=== PATIENT | male | born 1940 | race Caucasian/White ===

== ENCOUNTER 2017-03-10 15:17 | Inpatient (IN) | payer MEDICARE, OTHER ==
[~2017-03-10] VITALS: Ht 185.4 cm; Wt 97.5 kg
[~2017-03-10 15:17] MED LIST: ASPI81 PO; COZA50TA PO; IBUP600T26 PO; LORTA5 PO; NORV10TA PO; ROBA750T3 PO; SIMV5TAB3 OR; TOPR25TA2 PO
[2017-03-10 15:20] VITALS: BP 132/91; PULSE 64; RESP 18; TEMP 99.1; O2SAT 99
[2017-03-10 16:17] LABS: AUTOMATED NEUTROPHIL # 4.7 TH/MM3 (1.8-7.7); BASOPHIL % 0.1 % (0.0-2.0); HEMOGLOBIN 14.7 GM/DL (13.0-17.0); LYMPH % 13.8 % (9.0-44.0); LYMPHOCYTE # 0.8 TH/MM3 (1.0-4.8); MEAN CELL VOLUME 87.9 FL (80.0-100.0); MEAN CORPUSCULAR HEMOGLOBIN 29.4 PG (27.0-34.0); MEAN CORPUSCULAR HGB CONC 33.5 % (32.0-36.0); MONO % 7.2 % (0.0-8.0); MONOCYTE # 0.4 TH/MM3 (0-0.9); NEUT % 78.9 % (16.0-70.0); PLATELET COUNT 205 TH/MM3 (150-450); RED CELL DISTRIBUTION WIDTH 14.3 % (11.6-17.2)
--- NOTE | 2017-03-10 16:27 | RADRPT ---
EXAM DATE/TIME: 03/10/2017 15:32 [place] COMPARISON: No previous studies available for comparison. 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 Right lung is clear. Cardiomediastin contours are within normal limits. Multiple old left-si ded rib fractures. Remaining bony thorax is intact. CONCLUSION: 1. Multiple old left-sided rib fractures and linear parenchymal opacities in the left lower lobe with associated architectural distortion and volume loss likely reflecting scarring. Tru Miranda MD on March 10, 2017 at 16:23 Board Certified Radiologist. This report was verified electronically.
[2017-03-10 16:28] LABS: INTERNATIONAL NORMALIZED RATIO 1.1 RATIO; PROTHROMBIN TIME - PATIENT 10.7 SEC (9.8-11.6)
[2017-03-10 16:40] LABS: BICARBONATE 26.2 MEQ/L (21.0-32.0); CALCIUM 9.4 MG/DL (8.5-10.1); CREATININE 1.22 MG/DL (0.60-1.30); MAGNESIUM 2.3 MG/DL (1.5-2.5)
[2017-03-10 16:44] LABS: TROPONIN I 0.03 NG/ML (0.02-0.05)
[2017-03-10 17:59] VITALS: BP 174/89; PULSE 55; RESP 16; O2SAT 96
--- NOTE | 2017-03-10 18:30 | PD ---
HPI Chief Complaint: Chest Pain Time Seen by Provider: 18:09 Travel History International Travel<30 days: No Contact w/Intl Traveler<30days: No Traveled to known affect area: No History of Present Illness HPI The patient 76 years old and arrives to the ER complaining of chest pain retrosternal in location with a burning quality and some radiation to the left arm. The duration is been about 1-2 months. Over the past day or 2 it has become worse and at the time of ER evaluation is 1/10 in severity. The patient. There is no shortness of breath. There is an exertional component. Evidently the patient underwent stress test 2 months prior which was normal. He follows with Dr. Stewart. [facility] Past Medical History Heart Rhythm Problems: Yes High Cholesterol: Yes Gastrointestinal Disorders: Yes (hemrhoids removal) Genitourinary: Yes (prostate ca and removal) Hypertension: Yes Tetanus Vaccination: < 5 Years Past Surgical History Other Surgery: Yes (TURP, HEMORRHOIDECTOMY) Social History Alcohol Use: No Tobacco Use: No (quit 25 yrs ago) Substance Use: No Allergies-Medications (Allergen,Severity, Reaction): Coded Allergies: No Known Allergies (Verified , 10/20/12) Reported Meds & Prescriptions Reported Meds & Active Scripts Active Ibuprofen 600 Mg Tab 600 Mg PO Q8H PRN Robaxin-750 (Methocarbamol) 750 Mg Tab 750 Mg PO TID PRN [place] 5/325 (Hydrocodone-Acetaminophen) 325 Mg/5 Mg Tab 1 Tab PO Q6H PRN UNKNOWN DOSE Reported Cozaar (Losartan Potassium) 50 Mg Tab 100 Mg PO DAILY Norvasc (Amlodipine Besylate) 10 Mg Tab 7.5 Mg PO DAILY Simvastatin 5 Mg Tab 20 Mg OR Toprol Xl (Metoprolol Succinate) 25 Mg Tabcr 100 Mg PO DAILY Aspirin 81 Mg Tab 162 Mg PO DAILY Review of Systems Except as stated in HPI: all other systems reviewed are Neg General / Constitutional: No: Fever Physical Exam Narrative GENERAL: 76-year-old male well-nourished well-developed SKIN: Warm and dry. HEAD: Atraumatic. Normocephalic. EYES: Pupils equal and round. No scleral icterus. No injection or drainage. ENT: No nasal bleeding or discharge. Mucous membranes pink and moist. NECK: Trachea midline. No JVD. CARDIOVASCULAR: Regular rate and rhythm. RESPIRATORY: No accessory muscle use. Clear to auscultation. Breath sounds equal bilaterally. GASTROINTESTINAL: Abdomen soft, non-tender, nondistended. Hepatic and splenic margins not palpable. MUSCULOSKELETAL: Extremities without clubbing, cyanosis, or edema. No obvious deformities. NEUROLOGICAL: Awake and alert. No obvious cranial nerve deficits. Motor grossly within normal limits. Five out of 5 muscle strength in the arms and legs. Normal speech. PSYCHIATRIC: Appropriate mood and affect; insight and judgment normal. Data Data Last Documented VS Vital Signs Date Time Temp Pulse Resp B/P (MAP) Pulse Ox O2 Delivery O2 Flow Rate FiO2 03/10/17 17:59 55 16 174/89 (117) 96 Room Air 03/10/17 15:20 99.1 VS reviewed Orders Orders Electrocardiogram (03/10/17 15:22) Basic Metabolic Panel (Bmp) (03/10/17 15:22) Ckmb (Isoenzyme) Profile (03/10/17 15:22) Complete Blood Count With Diff (03/10/17 15:22) Magnesium (Mg) (03/10/17 15:22) Prothrombin Time / Inr (Pt) (03/10/17 15:22) Act Partial Throm Time (Ptt) (03/10/17 15:22) Troponin I (03/10/17 15:22) Chest, Pa & Lat (03/10/17 15:22) Electrocardiogram (03/10/17 ) Admit Order (Ed Use Only) (03/10/17 ) Net Web Application Developer / Telemetry [email or web address] (03/10/17 18:46) Vital Signs (Adult) Q4H (03/10/17 18:46) Diet Heart Healthy (03/10/17 Dinner) Activity Bed Rest (03/10/17 18:46) Heparin Inj (Heparin Inj) (03/11/17 01:00) Heparin Inj (Heparin Inj) (03/11/17 01:00) Heparin-D5w 25,000 U/250 Ml (Heparin-D5w (03/10/17 19:00) Cbc No Diff, Includes Plts (03/13/17 06:00) Act Partial Throm Time (Ptt) (03/11/17 01:46) Occult Blood (Hemoccult) Stool (03/10/17 18:46) Nitroglycerin 2% Oint (Nitroglycerin 2% (03/10/17 19:00) Labs Laboratory Tests Test 03/10/17 15:55 White Blood Count 6.0 TH/MM3 Red Blood Count 5.00 MIL/MM3 Hemoglobin 14.7 GM/DL Hematocrit 44.0 % Mean Corpuscular Volume 87.9 FL Mean Corpuscular Hemoglobin 29.4 PG Mean Corpuscular Hemoglobin Concent 33.5 % Red Cell Distribution Width 14.3 % Platelet Count 205 TH/MM3 Mean Platelet Volume 8.0 FL Neutrophils (%) (Auto) 78.9 % Lymphocytes (%) (Auto) 13.8 % Monocytes (%) (Auto) 7.2 % Eosinophils (%) (Auto) 0.0 % Basophils (%) (Auto) 0.1 % Neutrophils # (Auto) 4.7 TH/MM3 Lymphocytes # (Auto) 0.8 TH/MM3 Monocytes # (Auto) 0.4 TH/MM3 Eosinophils # (Auto) 0.0 TH/MM3 Basophils # (Auto) 0.0 TH/MM3 CBC Comment DIFF FINAL Differential Comment Prothrombin Time 10.7 SEC Prothromb Time International Ratio 1.1 RATIO Activated Partial Thromboplast Time 26.8 SEC Blood Urea Nitrogen 20 MG/DL Creatinine 1.22 MG/DL Random Glucose 111 MG/DL Calcium Level 9.4 MG/DL Magnesium Level 2.3 MG/DL Sodium Level 141 MEQ/L Potassium Level 4.2 MEQ/L Chloride Level 109 MEQ/L Carbon Dioxide Level 26.2 MEQ/L Anion Gap 6 MEQ/L Estimat Glomerular Filtration Rate 57 ML/MIN Total Creatine Kinase 58 U/L Troponin I 0.03 NG/ML [facility] Medical Decision Making Medical Screen Exam Complete: Yes Emergency Medical Condition: Yes Medical Record Reviewed: Yes Differential Diagnosis NSTEMI, unstable angina, coronary vasospasm, PE, PTX, aortic dissection, pericarditis, myocarditis, endocarditis, PNA, esophageal disease, aneurysm, musculoskeletal etiologies, anxiety, cocaine/sympathomimetic abuse Narrative Course CBC & BMP Diagram 03/10/17 15:55 Calcium Level 9.4, Magnesium Level 2.3 Troponin is 0.03 EKG shows a sinus rhythm at a rate of 58, nonspecific ST changes are seen in multiple leads Last Impressions Chest X-Ray 03/10/17 1522 Signed Impressions: Service Date/Time: Friday, March 10, 2017 15:32 - CONCLUSION: 1. Multiple old left-sided rib fractures and linear parenchymal opacities in the left lower lobe with associated architectural distortion and volume loss likely reflecting scarring. Tru Miranda MD d/w Dr Stewart who advises [facility] admission, likely pt will require cath nitro paste here Diagnosis Primary Impression: Chest pain Qualified Codes: R07.9 - Chest pain, unspecified Admitting Information Admitting Physician Requests: Admit Magdaleno Morris MD Mar 10, 2017 18:30
[2017-03-10] MEDS ORDERED: HEPARIN-D5W 25,000 U/250 ML 250 ML IV PRN (19:00)
[2017-03-10] MEDS ORDERED: NITROGLYCERIN 2% OINT 1 GM PACKET TOP ONE (19:00)
[2017-03-10 19:06] VITALS: BP 156/86; PULSE 58; RESP 16
[2017-03-10] MEDS ORDERED: NALOXONE HCL 0.4 MG/ML AMP IV PUSH PRN (19:15)
[2017-03-10] MEDS ORDERED: SODIUM CHLORIDE 0.9% FLUSH 10 ML FLUSH IV FLUSH PRN (19:15)
[2017-03-10] MEDS: SODIUM CHLORIDE 0.9% FLUSH 10 ML FLUSH IV FLUSH SCH (20:56)
--- NOTE | 2017-03-10 21:11 | EKG ---
Date Performed: 03/10/2017 Time Performed: 17:23:07 PTAGE: 76 years EKG: SINUS BRADYCARDIA INFERIOR MYOCARDIAL INFARCTION ABNORMAL ECG PREVIOUS TRACING : 03/10/2017 15.57 Since previous tracing, no significant change noted DOCTOR: Mejia Mazariegos Interpretating Date/Time 03/10/2017 21:10:03
--- NOTE | 2017-03-10 21:23 | EKG ---
Date Performed: 03/10/2017 Time Performed: 15:57:13 PTAGE: 76 years EKG: SINUS BRADYCARDIA INFERIOR MYOCARDIAL INFARCTION ABNORMAL ECG NO PREVIOUS TRACING DOCTOR: Mejia Mazariegos Interpretating Date/Time 03/10/2017 21:22:43
--- NOTE | 2017-03-10 21:39 | HHI.HP ---
[facility] Faraz Del Real DO Admission Diagnosis Chest Pain Diagnoses: Travel History International Travel<30 Days: No Contact w/Intl Traveler <30 Da: No Traveled to Known Affected Are: No History of Present Illness 76-year-old male with a past medical history significant for hypertension, hyperlipidemia and history of thymoma presents to the emergency department for evaluation of chest pressure/tightness. The patient reports that he was walking in the mall this morning with his and he had sudden onset chest pain that radiated down his left arm. He reports that over the past 4 weeks this has happened approximately 5-7 times most recently awakening him from sleep last night. The patient denies any associated diaphoresis or shortness of breath. 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 Stewart and he underwent a stress test 2 weeks ago which was within normal limits. Vital signs: Temperature 99.1, pulse 64, respiratory rate 18, BP 132/91, pulse ox 99% on room air Review of Systems Denies fever or chills Denies blurry vision, otorrhea, rhinorrhea Denies sore throat and cough Positive chest pain/pressure/tightness No shortness of breath or wheezing No abdominal pain Denies constipation/diarrhea/nausea/vomiting Denies muscle pain Denies focal weakness No rashes Past Family Social History Past Medical History Hypertension Hyperlipidemia History of thymoma, patient followed at [facility] every 6 months Past Surgical History Thymoma removal Prostatectomy Hemorrhoidectomy Reported Medications Reported Meds & Active Scripts Active Ibuprofen 600 Mg Tab 600 Mg PO Q8H PRN Robaxin-750 (Methocarbamol) 750 Mg Tab 750 Mg PO TID PRN [place] 5/325 (Hydrocodone-Acetaminophen) 325 Mg/5 Mg Tab 1 Tab PO Q6H PRN UNKNOWN DOSE Reported Cozaar (Losartan Potassium) 50 Mg Tab 100 Mg PO DAILY Norvasc (Amlodipine Besylate) 10 Mg Tab 7.5 Mg PO DAILY Simvastatin 5 Mg Tab 20 Mg OR Toprol Xl (Metoprolol Succinate) 25 Mg Tabcr 100 Mg PO DAILY Aspirin 81 Mg Tab 162 Mg PO DAILY Allergies: Coded Allergies: No Known Allergies (Verified Allergy, Unknown, 03/10/17) Family History Father with CAD Social History Quit smoking at age 50. Rare alcohol. Denies illicit drugs. Physical Exam Vital Signs Vital Signs Date Time Temp Pulse Resp B/P (MAP) Pulse Ox O2 Delivery O2 Flow Rate FiO2 03/10/17 19:06 58 16 156/86 (109) 03/10/17 17:59 55 16 174/89 (117) 96 Room Air 03/10/17 15:20 99.1 64 18 132/91 (105) 99 Room Air Physical Exam GENERAL: male sitting up in bed SKIN: No rashes, ecchymoses or lesions. Cool and dry. HEAD: Atraumatic. Normocephalic. No temporal or scalp tenderness. EYES: Pupils equal round and reactive. Extraocular motions intact. No scleral icterus. No injection or drainage. ENT: Nose without bleeding, purulent drainage or septal hematoma. Throat without erythema, tonsillar hypertrophy or exudate. Uvula midline. Airway patent. NECK: Trachea midline. No JVD or lymphadenopathy. Supple, nontender, no meningeal signs. CARDIOVASCULAR: Regular rate and rhythm without murmurs, gallops, or rubs. RESPIRATORY: Clear to auscultation. Breath sounds equal bilaterally. No wheezes , rales, or rhonchi. GASTROINTESTINAL: Abdomen soft, non-tender, nondistended. No hepato-splenomegaly , or palpable masses. No guarding. MUSCULOSKELETAL: Extremities without clubbing, cyanosis, or edema. No joint tenderness, effusion, or edema noted. No calf tenderness. NEUROLOGICAL: Awake and alert. Cranial nerves II through XII intact. Motor and sensory grossly within normal limits. Normal speech. Laboratory Laboratory Tests Test 03/10/17 15:55 White Blood Count 6.0 Red Blood Count 5.00 Hemoglobin 14.7 Hematocrit 44.0 Mean Corpuscular Volume 87.9 Mean Corpuscular Hemoglobin 29.4 Mean Corpuscular Hemoglobin Concent 33.5 Red Cell Distribution Width 14.3 Platelet Count 205 Mean Platelet Volume 8.0 Neutrophils (%) (Auto) 78.9 Lymphocytes (%) (Auto) 13.8 Monocytes (%) (Auto) 7.2 Eosinophils (%) (Auto) 0.0 Basophils (%) (Auto) 0.1 Neutrophils # (Auto) 4.7 Lymphocytes # (Auto) 0.8 Monocytes # (Auto) 0.4 Eosinophils # (Auto) 0.0 Basophils # (Auto) 0.0 CBC Comment DIFF FINAL Differential Comment Prothrombin Time 10.7 Prothromb Time International Ratio 1.1 Activated Partial Thromboplast Time 26.8 Blood Urea Nitrogen 20 Creatinine 1.22 Random Glucose 111 Calcium Level 9.4 Magnesium Level 2.3 Sodium Level 141 Potassium Level 4.2 Chloride Level 109 Carbon Dioxide Level 26.2 Anion Gap 6 Estimat Glomerular Filtration Rate 57 Total Creatine Kinase 58 Troponin I 0.03 Result Diagram: 03/10/17155403/10/171554 Caprini VTE Risk Assessment Caprini VTE Risk Assessment: Mod/High Risk (score >= 2) Caprini Risk Assessment Model Point Value = 1 Point Value = 2 Point Value = 3 Point Value = 5 Age 41-60 Minor surgery BMI > 25 kg/m2 Swollen legs Varicose veins or History of unexplained or recurrent spontaneous Oral contraceptives or hormone replacement Sepsis (< 1 month) Serious lung disease, including pneumonia (< 1 month) Abnormal pulmonary function Acute myocardial infarction Congestive heart failure (< 1 month) History of inflammatory bowel disease Medical patient at bed rest Age 61-74 Arthroscopic surgery Major open surgery (> 45 min) Laparoscopic surgery (> 45 min) Malignancy Confined to bed (> 72 hours) Immobilizing plaster cast Central venous access Age >= 75 History of VTE Family history of VTE Factor V Leiden Prothrombin [id number] Lupus anticoagulant Anticardiolipin antibodies Elevated serum homocysteine Heparin-induced thrombocytopenia Other congenital or acquired thrombophilia Stroke (< 1 month) Elective arthroplasty Hip, pelvis, or leg fracture Acute spinal cord injury (< 1 month) Prophylaxis Regimen Total Risk Factor Score Risk Level Prophylaxis Regimen 0-1 Low Early ambulation 2 Moderate Order ONE of the following: *Sequential Compression Device (SCD) *Heparin 5000 units SQ BID 3-4 Higher Order ONE of the following medications: *Heparin 5000 units SQ TID *Enoxaparin/Lovenox 40 mg SQ daily (WT < 150 kg, CrCl > 30 mL/min) *Enoxaparin/Lovenox 30 mg SQ daily (WT < 150 kg, CrCl > 10-29 mL/min) *Enoxaparin/Lovenox 30 mg SQ BID (WT < 150 kg, CrCl > 30 mL/min) AND/OR *Sequential Compression Device (SCD) 5 or more Highest Order ONE of the following medications: *Heparin 5000 units SQ TID (Preferred with Epidurals) *Enoxaparin/Lovenox 40 mg SQ daily (WT < 150 kg, CrCl > 30 mL/min) *Enoxaparin/Lovenox 30 mg SQ daily (WT < 150 kg, CrCl > 10-29 mL/min) *Enoxaparin/Lovenox 30 mg SQ BID (WT < 150 kg, CrCl > 30 mL/min) AND *Sequential Compression Device (SCD) Assessment and Plan Assessment and Plan Assessment/plan: 1. Chest pain Symptoms consistent with unstable angina EKG significant for sinus bradycardia without ST segment elevations or depressions, images reviewed by me Initial troponin 0.03 Patient started on heparin drip in the emergency department Nitro paste Cardiology, Dr. Stewart, consulted and appreciate recommendations ACS rule out pending; serial troponin/EKGs Telemetry Nothing by mouth for possible cardiac catheterization tomorrow 2. Hypertension Continue home blood pressure medications once medication reconciliation completed 3. Hyperlipidemia Continue home statin FEN NPO Electrolytes: monitor and replete prn NS at 100 cc/hr Heparin ggt Physician Certification 2 Midnight Certification Type: Admission for Inpatient Services Order for Inpatient Services The services are ordered in accordance with Medicare regulations or non- Medicare payer requirements, as applicable. In the case of services not specified as inpatient-only, they are appropriately provided as inpatient services in accordance with the 2-midnight benchmark. Estimated LOS (days): 2 2 days is the estimated time the patient will need to remain in the hospital, assuming treatment plan goals are met and no additional complications. Post-Hospital Plan: Not yet determined Isabela Moran MD Mar 10, 2017 21:38
[2017-03-10] MEDS: SODIUM CHLOR 0.9% 1000 ML INJ 1,000 ML IV SCH (21:56)
[2017-03-10 23:00] VITALS: BP 143/90; PULSE 66; RESP 16; O2SAT 98
[2017-03-11] VITALS (20 sets, daily range): BP systolic 107–160; BP diastolic 70–94; PULSE 56–78; RESP 16–20; TEMP 97.8–98.3; O2SAT 96–97
[2017-03-11 00:26] LABS: TROPONIN I 0.05 NG/ML (0.02-0.05)
[2017-03-11] MEDS ORDERED: HEPARIN SODIUM - IV 10,000 UNITS/10 ML VIAL IV PUSH PRN ×2 (01:00)
[2017-03-11] MEDS ORDERED: METO50TA PO (05:00)
[2017-03-11] MEDS ORDERED: LOSA100T PO (05:00)
[2017-03-11] MEDS ORDERED: ASPI81CH6 CHEW (05:00)
[2017-03-11] MEDS ORDERED: LIPI40TA PO (05:00)
[2017-03-11] MEDS ORDERED: AMLO5TAB2 PO (05:00)
[2017-03-11 05:31] LABS: BICARBONATE 25.2 MEQ/L (21.0-32.0); CALCIUM 8.4 MG/DL (8.5-10.1); CREATININE 1.09 MG/DL (0.60-1.30); TROPONIN I 0.05 NG/ML (0.02-0.05)
[2017-03-11] MEDS: SODIUM CHLOR 0.9% 1000 ML INJ 1,000 ML IV SCH (08:57)
[2017-03-11] MEDS: SODIUM CHLORIDE 0.9% FLUSH 10 ML FLUSH IV FLUSH SCH ×2 (09:00→20:07)
[2017-03-11 09:16] LABS: AUTOMATED NEUTROPHIL # 3.8 TH/MM3 (1.8-7.7); BASOPHIL % 0.1 % (0.0-2.0); HEMATOCRIT 37.6 % (39.0-51.0); HEMOGLOBIN 12.9 GM/DL (13.0-17.0); LYMPH % 19.1 % (9.0-44.0); MEAN CELL VOLUME 86.9 FL (80.0-100.0); MEAN CORPUSCULAR HEMOGLOBIN 29.9 PG (27.0-34.0); MEAN CORPUSCULAR HGB CONC 34.4 % (32.0-36.0); MEAN PLATELET VOLUME 8.3 FL (7.0-11.0); MONO % 8.6 % (0.0-8.0); MONOCYTE # 0.5 TH/MM3 (0-0.9); NEUT % 72.2 % (16.0-70.0); PLATELET COUNT 160 TH/MM3 (150-450); RED BLOOD COUNT 4.33 MIL/MM3 (4.50-5.90); WHITE BLOOD COUNT 5.3 TH/MM3 (4.0-11.0)
[2017-03-11] MEDS ORDERED: SODIUM CHLOR 0.9% 1000 ML INJ 1,000 ML IV SCH ×2 (10:39→15:09)
[2017-03-11] MEDS ORDERED: ASPIRIN 325 MG TAB PO SCH (10:45)
--- NOTE | 2017-03-11 11:05 | MB ---
cc: WILBER STEWART M.D. DATE OF CONSULTATION 03/11/2017 Thank you, Dr. Shipman, for asking me to see this very pleasant 71-year-old white male who presents with a history of chest pain. Previously for a different left sided cp he had a ETT on November 11, 2016 and at that time his stress test was essentially negative and he had no chest pain. He states over the last few days he has had a different kind of chest pain. The pain that he had at the time of his stress test was a left-sided pain. This was more of a burning-type chest pain that went down his arm. It was worse on walking in the mall. It happened a few times over the last 4 weeks but yesterday it was quite severe. He was started on nitroglycerin and heparin and his pains have improved. PAST MEDICAL HISTORY 1. Hyperlipidemia. 2. Hypertension. 3. History of thymoma. 4. Prostatectomy. 5. Hemorrhoidectomy. MEDICATIONS Medications at home include: 1. Cozaar. 2. Norvasc. 3. Simvastatin. 4. Tylenol. 5. Aspirin. ALLERGIES None known. FAMILY HISTORY Positive for father having coronary artery disease. SOCIAL HISTORY Quit smoking at age 48. No alcohol. No drugs. PHYSICAL EXAMINATION VITAL SIGNS: Pulse 58, blood pressure 156/86. HEENT: Eyes show no xanthelasma. Mouth shows no cyanosis or pallor. NECK: No JVD. HEART: Two heart sounds. No murmurs. CHEST: Clear. ABDOMEN: Soft. No hepatosplenomegaly. EXTREMITIES: Legs with no evidence of edema. NEUROLOGIC: Grossly intact. SKIN: Intact. LABORATORY TESTS White count 6.0, hemoglobin 14.7, platelet count 205,000. GFR 57. Troponin 0.03. EKG EKG showed normal sinus rhythm. ASSESSMENT AND PLAN Chest pains consistent with unstable angina. The patient is agreeable to proceed with heart cath. Will proceed later today or tomorrow depending on the labor relations specialist schedule. The risks of heart cath, , bleeding, myocardial infarction, perforation, aspiration, risk of stent placement and possibility of bypass surgery were reviewed. He fully appears to understand. Wilber Stewart MD, FRCP,[facility]/BT /10:19 AM /10:49 AM MTDMariam
[2017-03-11] MEDS: ATORVASTATIN 20 MG TAB PO SCH (11:22)
[2017-03-11] MEDS: METOPROLOL TARTRATE 25 MG TAB PO SCH ×2 (11:22→20:13)
--- NOTE | 2017-03-11 12:03 | EKG ---
Date Performed: 03/11/2017 Time Performed: 04:20:03 PTAGE: 76 years EKG: Sinus rhythm POSSIBLE INFERIOR MYOCARDIAL INFARCTION ABNORMAL ECG PREVIOUS TRACING : 03/11/2017 03.49 Since the prior tracing, there has been no significant hilliard DOCTOR: Mejia Mazariegos Interpretating Date/Time 03/11/2017 12:01:33
--- NOTE | 2017-03-11 12:09 | EKG ---
Date Performed: 03/10/2017 Time Performed: 23:35:44 PTAGE: 76 years EKG: Sinus rhythm LEFT VENTRICULAR HYPERTROPHY AND ST-T CHANGE INFERIOR MYOCARDIAL INFARCTION ABNORMAL ECG Since the p rior tracing, there has been no significant change DOCTOR: Mejia Mazariegos Interpretating Date/Time 03/11/2017 12:08:51
[2017-03-11] MEDS ORDERED: MIDAZOLAM HCL 2 MG/2 ML VIAL ONE (13:53)
[2017-03-11] MEDS ORDERED: HEPARIN-NS/PF INJ 1,000 ML ONE (13:53)
--- NOTE | 2017-03-11 13:59 | HHI.PR ---
Subjective Remarks This is a pleasant 76 y/o Male with Hypertension, Hyperlipidemia, History of Thymoma, who came to ER with Chest pain, seen in his bedroom in the presence of his , he had Cardiac Cath no result in EMR but was recommended for Cardiothoracic surgery evaluation for probable Coronary artery bypass surgery. stable after procedure. Objective Vital Signs Date Time Temp Pulse Resp B/P (MAP) Pulse Ox O2 Delivery O2 Flow Rate FiO2 03/11/17 12:55 97.8 68 16 131/83 (99) 03/11/17 12:35 72 19 132/80 (97) 97 03/11/17 11:30 70 20 134/81 (98) 97 Room Air 03/11/17 10:30 74 18 141/81 (101) 96 Room Air 03/11/17 09:30 74 18 150/88 (108) 97 Room Air 03/11/17 08:30 70 17 132/81 (98) 97 Room Air 03/11/17 07:30 98.1 75 19 122/70 (87) 97 Room Air 03/11/17 07:00 70 97 Room Air 03/11/17 06:38 56 18 107/77 (87) 96 03/11/17 03:00 58 16 134/81 (98) 97 Room Air 03/10/17 23:00 66 16 143/90 (107) 98 Room Air 03/10/17 19:06 58 16 156/86 (109) 03/10/17 17:59 55 16 174/89 (117) 96 Room Air 03/10/17 15:20 99.1 64 18 132/91 (105) 99 Room Air Result Diagram: 03/11/17 0806 03/11/17 0415 Imaging Last Impressions Chest X-Ray 03/10/17 1522 Signed Impressions: Service Date/Time: Friday, March 10, 2017 15:32 - CONCLUSION: 1. Multiple old left-sided rib fractures and linear parenchymal opacities in the left lower lobe with associated architectural distortion and volume loss likely reflecting scarring. Tru Miranda MD Procedures None Other Results Laboratory Tests Test 03/10/17 15:55 03/11/17 04:15 03/11/17 08:06 Prothrombin Time 10.7 SEC Prothromb Time International Ratio 1.1 RATIO Blood Urea Nitrogen 20 MG/DL 19 MG/DL Creatinine 1.22 MG/DL 1.09 MG/DL Random Glucose 111 MG/DL 99 MG/DL Calcium Level 9.4 MG/DL 8.4 MG/DL Magnesium Level 2.3 MG/DL Sodium Level 141 MEQ/L 145 MEQ/L Potassium Level 4.2 MEQ/L 3.5 MEQ/L Chloride Level 109 MEQ/L 113 MEQ/L Carbon Dioxide Level 26.2 MEQ/L 25.2 MEQ/L Anion Gap 7 MEQ/L Estimat Glomerular Filtration Rate 65 ML/MIN Total Creatine Kinase 70 U/L Troponin I 0.05 NG/ML White Blood Count 5.3 TH/MM3 Red Blood Count 4.33 MIL/MM3 Hemoglobin 12.9 GM/DL Hematocrit 37.6 % Mean Corpuscular Volume 86.9 FL Mean Corpuscular Hemoglobin 29.9 PG Mean Corpuscular Hemoglobin Concent 34.4 % Red Cell Distribution Width 14.0 % Platelet Count 160 TH/MM3 Mean Platelet Volume 8.3 FL Neutrophils (%) (Auto) 72.2 % Lymphocytes (%) (Auto) 19.1 % Monocytes (%) (Auto) 8.6 % Eosinophils (%) (Auto) 0.0 % Basophils (%) (Auto) 0.1 % Neutrophils # (Auto) 3.8 TH/MM3 Lymphocytes # (Auto) 1.0 TH/MM3 Monocytes # (Auto) 0.5 TH/MM3 Eosinophils # (Auto) 0.0 TH/MM3 Basophils # (Auto) 0.0 TH/MM3 CBC Comment DIFF FINAL Differential Comment Activated Partial Thromboplast Time 42.2 SEC Objective Remarks GENERAL: No acute distress. SKIN: No rashes, ecchymoses or lesions. Cool and dry. HEAD: Atraumatic. Normocephalic. No temporal or scalp tenderness. EYES: Pupils equal round and reactive. Extraocular motions intact. No scleral icterus. No injection or drainage. ENT: Nose without bleeding, purulent drainage or septal hematoma. Throat without erythema, tonsillar hypertrophy or exudate. Uvula midline. Airway patent. NECK: Trachea midline. No JVD or lymphadenopathy. Supple, nontender, no meningeal signs. CARDIOVASCULAR: Regular rate and rhythm without murmurs, gallops, or rubs. RESPIRATORY: Clear to auscultation. Breath sounds equal bilaterally. No wheezes , rales, or rhonchi. GASTROINTESTINAL: Abdomen soft, non-tender, nondistended. No hepato-splenomegaly , or palpable masses. No guarding. MUSCULOSKELETAL: Extremities without clubbing, cyanosis, or edema. No joint tenderness, effusion, or edema noted. No calf tenderness. NEUROLOGICAL: Awake and alert. Cranial nerves II through XII intact. Motor and sensory grossly within normal limits. Normal speech. Medications and IVs Current Medications Medications (Trade) Dose Ordered Sig/Antonia Route Start Time Stop Time Status Last Admin (Heparin Inj) 5,000 units UNSCH PRN IV PUSH 03/11/17 01:00 (Heparin Inj) 2,500 units UNSCH PRN IV PUSH 03/11/17 01:00 Heparin Sodium/ Dextrose 250 ml @ 10 mls/hr TITRATE PRN IV 03/10/17 19:00 03/10/17 19:08 (NS Flush) 2 ml UNSCH PRN IV FLUSH 03/10/17 19:15 (NS Flush) 2 ml BID IV FLUSH 03/10/17 21:00 (Narcan Inj) 0.4 mg UNSCH PRN IV PUSH 03/10/17 19:15 Sodium Chloride 1,000 ml @ 100 mls/hr Q10H IV 03/10/17 21:30 03/11/17 08:57 Sodium Chloride 1,000 ml @ 30 mls/hr Q24H IV 03/11/17 10:39 03/16/17 10:38 03/11/17 11:21 (Aspirin) 325 mg [employer]OR [employer] CHIEF PO 03/11/17 10:45 03/15/17 10:44 03/11/17 11:23 (Lopressor) 25 mg Q12HR PO 03/11/17 11:00 03/11/17 11:22 (Nitroglycerin 2% Oint) 1 inch Q8HR TOPICAL 03/11/17 14:00 (Lipitor) 20 mg DAILY PO 03/11/17 11:00 03/11/17 11:22 A/P Assessment and Plan 1. Unstable Angina, EKG significant for sinus bradycardia without ST segment elevations or depressions, images reviewed by me Cardiac enzymes, Nitroglycerine, Telemetry, Status post Cardiology consult and Cardiac Cath, Cardiothoracic surgery following for probable Coronary Artery Bypass Graft. 2. Hypertension Continue home blood pressure medications once medication reconciliation completed 3. Hyperlipidemia Continue home statin Heparin ggt Discharge Planning Once cleared by Cardiothoracic surgery. Serafin Alexis MD Mar 11, 2017 1:59 pm
[2017-03-11] MEDS ORDERED: MISC INFORMATION XX ONE (15:15)
--- NOTE | 2017-03-11 15:17 | CATHPROC ---
[employer] HIS Report Study Information Study Number Admission Scheduled Start Study Start [id number] Mar 10 2017 6:49PM 03/11/2017 Mar 11 2017 1:13PM [place] Service Cardiac Catheterization Admit Source Facility Department Emergency department [facility] - Seed Collector Physician and Clinical Staff Initial MD Stewart, Wilber Residential Solar Consultant Orin Paredes BSN Recorder Romina Fountain,RT(R) (BS) Scrub Ekaterina TrippRT(R) Procedures Performed Procedure Location (Site) Vessel Name Angiogram LV LV Ventricle Coronary Angiograms LCA Left Coronary Coronary Angiograms RCA Right Coronary L Heart Cath Equipment Time Hair Or Beauty Salon Assistant Description Size Mfg Part Number Used/Scraped TRANSDUCER, TREvolutionary GenomicsAVE [id number] 13:15 MELGAR HINOJOSA * Used W/STOCKCOCK *[id number] INTRODUCER SET, 13:15 [employer] FR 5 [id number] *[id number] Used MICROPUNCTURE, STIFFENED 538-476 *[id number] 538-420 *[id number] 538-422 *[id number] 538-453S *[id number] 13:15 [employer] PACK, CCL CUSTOM * Used *[id number] 13:15 [employer]rem[employer] PACER PEN, SKIN DUAL W/ RULER * Used *[id number] 13:15 sigmacare WIRE, 3MMJ .035 180CM 180CM Used *[id number] PROBE COVER, STERILE [id number] 13:15 Smartdate * Used ULTRASOUND W/ GEL *[id number] 13:15 NAMIC MANIFOLD, 4 PORT * Used *[id number] 13:15 NYCOMED OMNIPAQUE, 350 MG, 150ML 150ML [id number] Used 13:59 NYCOMED OMNIPAQUE, 350 MG, 50ML 50ML [id number] Used [id number] 13:15 Eq[employer] MEDICAL BLANKET,WARM AIR CCL * Used *[id number] 13:15 [employer] MEDICAL SHEATH, FR4 TERUMO (10CM) FR 4 Used *[id number] History: Current Medications Medication Dosage/Unit Route Frequency Last Date/Time Taken LOPRESSOR LIPITOR ASA HEPARIN History: Allergies Allergy Reaction No Known Allergies History: Risk Factors Family History of Hypertension Dyslipidemia Previous LA Previous Heart Failure Premature CAD Yes Yes No No No Prior Valve Prior PCI Prior CABG Surgery No No No Cerebrovascular Peripheral Artery Chronic Lung On Dialysis Diabetes Disease Disease Disease No No No No No History: Symptoms/Diagnosis Selection Items Chest pain History: Stress Tests Stress or Imaging Studies Performed Yes Standard Exercise Stress Test No Stress Echo No Stress Test SPECT Stress Test SPECT Result Yes Negative Stress Test CMR No Cardiac CTA Coronary Calcium Score No No History: Other Current Smoker Method Quit Packs a Day Years Used Pack Years No Cigarettes 28 Years Ago 1 35 35 Labs Hgb (g/dl) Hct (%) WBC (l/cumm) Platelets (thousands) 11.60-17.00 35.00-51.00 4.00-11.00 150.00-450.00 12.9 37.6 5.3 160 Glucose (mg/dl) BUN (mg/dl) Creatinine (mg/dl) BUN:Creatinine (1:x) 74.00-106.00 7.00-18.00 0.50-1.30 10.00-20.00 99 19 1.0 19 Na (meq/l) K (meq/l) 136.00-145.00 3.50-5.10 145 3.5 INR (PTT:PT) 0.90-1.10 1.1 Troponin I (ng/ml) CPK (u/l) CPK-MB (ng/ML) 0.02-0.05 26.00-308.00 0.50-3.60 0.05 70 Not Drawn Medication Medication Total Dose (Bolus/Oral) Medication Total Dosage/Unit 1% XYLOCAINE 20 mL FENTANYL 50 mcg VERSED 2 mg Medications (Bolus/Oral) Medication Time Given Dosage/Unit Administered By Reason VERSED 03/11/2017 2:24:17 PM 2 mg Orin Paredes 2 mg VERSED given in lab by Orin Paredes BSN in Left Hand via Peripheral IV. FENTANYL 03/11/2017 2:25:50 PM 50 mcg Orin Paredes 50 mcg FENTANYL given in lab by Orin Paredes BSN via Peripheral IV. 1% XYLOCAINE 03/11/2017 2:27:07 PM 20 mL ZiaidaWilber blake 20 mL 1% XYLOCAINE given in lab by Wilber Stewart in Right Groin via Subcutaneous. Medication (Drip) Medication Time Given Dosage/Unit Concentration/Unit Diluent (ml) Solution HEPARIN DRIP STOPPED 03/11/2017 1:34:00 PM 0 units/hr 0 0 units/hr HEPARIN DRIP STOPPED given pre op via Peripheral IV. Pump/Drip Flow = 0 ml/hr using [Solut ion Name]. IV Solutions 03/11/2017 1:45:53 PM 50 mL (IV) NaCl .9 Patient arrived on IV Solutions in Left Hand via Peripheral IV. Pump/Drip Flow using NaCl .9. Initial Case Assessment Cardiovascular HR Rhythm NIBP Chest Pain 59 sr 153/95 0 Edema Present Skin color Skin None Normal Warm Dry Circulatory - Right Pulses Dorsalis Pedis Femoral 2 1 Scale (0,1,2,3,4,d) Circulatory - Left Pulses Dorsalis Pedis Femoral 2 1 Scale (0,1,2,3,4,d) Neurological State Oriented to time-place- Alert Moves all extremities person Respiration - General Respiration Rate SpO2 (%) (B/min) 21 96 Chronological Log Time Study Chronological Log 13:34:00 0 units/hr HEPARIN DRIP STOPPED given pre op via Peripheral IV. Pump/Drip Flow = 0 ml/hr us ing [Solution Name]. 13:45:30 Patient arrived via Bed. 13:45:31 Patient Name, D.O.B, / Armband Verified By R.N. 13:45:32 Consent signed by the physician and the patient and verified by the Seed Collector staff. 13:45:34 Pre-op and post- op instructions given; patient acknowledges understanding of instructions. 13:45:34 Verbal Stimulation=2 Physical Stimulation=2 Airway=2 Respiration=2 TOTAL=8. (0=absent, 1=li mited, 2=present) 13:45:38 Presedation assessment performed by Seed Collector RN. 13:45:42 Immediate Presedation assesment performed by physician. 13:45:43 Patient has been NPO for More than 6Hrs. 13:45:44 Skin Breakdown- none per patient 13:45:47 Patient Warmer Placed on the Table. 13:45:51 Karla Prominences Protected 13:45:52 A # 20 IV was noted in the Hand (left). Grade = 0 13:45:53 Patient arrived on IV Solutions in Left Hand via Peripheral IV. Pump/Drip Flow using NaCl . 9. 13:45:55 History and physical on the chart or being dictated. Assessment: Initial Case, HR=59 BPM, Rhythm=sr, JNBV=876/95 mmhg, Chest Pain=0, Edema=None, Col or=Normal, Skin = Warm, Dry Right Pulses: Lorenzo Ped=2, Femoral=1 13:45:57 Left Pulses: Lorenzo Ped=2, Femoral=1 Neurological: State=Alert, Ox3, LOVING Respiration: Resp=21 B/min, SpO2=96 % Vitals capture started with the following parameters, Patient=Adult, Interval=5 min, Initial Pr yfsbeh=531 mmHg, 13:48:01 Deflation Rate=5 mmHg, Cuff placed on Left Arm 13:48:51 HR=62 bpm, HUNU=572/92 mmhg, SpO2=96 %, Resp=25 B/min, Pain=0, Jaimes=2 13:53:46 HR=64 bpm, ZDHW=328/95 mmhg, SpO2=97.0 %, Resp=18 B/min, Pain=0, Jaimes=2 13:56:13 Reference ECG taken 13:57:44 Bilateral groins prepped with 2% chlorhexidine, and draped after a 3 minute waiting time. 13:58:45 HR=64 bpm, YODK=369/97 mmhg, SpO2=96.0 %, Resp=20 B/min, Pain=0, Jaimes=2 14:03:46 HR=62 bpm, XRES=164/94 mmhg, SpO2=95.0 %, Resp=13 B/min, Pain=0, Jaimes=2 14:04:24 Pressure channel 1 zeroed. 14:08:45 HR=59 bpm, RLWU=400/94 mmhg, SpO2=96.0 %, Resp=22 B/min, Pain=0, Jaimes=2 14:13:46 HR=54 bpm, PLUH=347/90 mmhg, SpO2=96.0 %, Resp=26 B/min, Pain=0, Jaimes=2 14:19:26 HR=62 bpm, SEJA=317/96 mmhg, SpO2=95.0 %, Resp=19 B/min, Pain=0, Jaimes=2 14:23:46 HR=75 bpm, DEUZ=464/85 mmhg, SpO2=95.0 %, Resp=25 B/min, Pain=0, Jaimes=2 14:24:17 2 mg VERSED given in lab by Orin Paredes BSN in Left Hand via Peripheral IV. 14:25:31 MD arrived. 14:25:50 50 mcg FENTANYL given in lab by Orin Paredes BSN via Peripheral IV. Time Out. Correct patient, correct procedure, correct physician, power injector loaded with con trast with surgical team 14:26:23 present. Time Out Concurred by MD and individual staff in procedure. 14:26:53 Case Start 14:27:07 20 mL 1% XYLOCAINE given in lab by Wilber Stewart in Right Groin via Subcutaneous. 14:28:36 Access site was Right Femoral Artery using ultrasound 14:28:47 HR=63 bpm, ZGWM=862/92 mmhg, SpO2=94.0 %, Resp=24 B/min, Pain=0, Jaimes=2 A INTRODUCER SET, MICROPUNCTURE, STIFFENED FR 5 was advanced into the Fem Art (right) using the 14:29:00 Percutaneous technique. A SHEATH, FR4 TERUMO (10CM) FR 4 was exchanged in the Fem Art (right). This was necessary in or griselda to 14:29:05 accomodate a larger catheter. A 3DRC INFINITI CATHETER FR 4 was advanced over a wire. OMNIPAQUE, 350 MG, 150ML 150ML was used for 14:29:54 injections. 14:31:11 The RCA was injected and visualized at various angles. OMNIPAQUE, 350 MG, 150ML 150ML used . Recorded Pressure: Ao, HR=59, Condition=Condition 1 14:31:20 (Aorta) Ao 113/67/86 14:31:38 Catheter was removed A JL 4.0 INFINITI CATHETER FR 4 was advanced over a wire. OMNIPAQUE, 350 MG, 150ML 150ML was us ed for 14:31:39 injections. 14:33:14 The LCA was injected and visualized at various angles. OMNIPAQUE, 350 MG, 150ML 150ML used . 14:33:44 HR=61 bpm, WWOL=816/88 mmhg, SpO2=96.0 %, Resp=12 B/min, Pain=0, Jaimes=2 14:35:03 Catheter was removed A JL 5.0 INFINITI CATHETER FR 4 was advanced over a wire. OMNIPAQUE, 350 MG, 150ML 150ML was us ed for 14:35:49 injections. 14:38:17 Catheter was removed 14:38:45 HR=61 bpm, PLRU=390/84 mmhg, SpO2=95.0 %, Resp=20 B/min, Pain=0, Jaimes=2 A JL 5.0 INFINITI CATHETER FR 4 was advanced over a wire. OMNIPAQUE, 350 MG, 150ML 150ML was us ed for 14:43:13 injections. 14:44:13 HR=60 bpm, GPTR=531/89 mmhg, SpO2=95.0 %, Resp=20 B/min, Pain=0, Jaimes=2 14:44:23 The LCA was injected and visualized at various angles. OMNIPAQUE, 350 MG, 150ML 150ML used . A PIGTAIL ANG. INFINITI CATHETER FR 4 was advanced over a wire. OMNIPAQUE, 350 MG, 150ML 150ML was used 14:48:31 for injections. 14:48:47 HR=63 bpm, FMAM=489/87 mmhg, SpO2=95.0 %, Resp=19 B/min, Pain=0, Jaimes=2 Recorded Pressure: LV, HR=67, Condition=Condition 1 14:51:41 (Left Ventricle) LV 142/9/14 14:51:54 The LV was injected at 8 cc/sec for a total of 32. OMNIPAQUE, 350 MG, 50ML 50ML used. Recorded Pressure: LV, Ao, HR=72, Condition=Condition 1 14:52:12 (Left Ventricle) LV 138/16/23, (Aorta) Ao 132/70/96 14:52:27 Catheter was removed 14:52:31 Case End 14:52:44 Catheter(s) removed without difficulty 14:52:50 No case complications noted. 14:52:56 Bedside Report will be given. 14:53:00 A Left Heart Cath was performed. 14:53:48 HR=66 bpm, OXVN=184/92 mmhg, SpO2=94.0 %, Resp=16 B/min, Pain=0, Jaimes=2 14:57:34 Sheath removed; pressure applied to access site. 14:58:50 HR=62 bpm, YFSV=768/94 mmhg, SpO2=96.0 %, Resp=8 B/min, Pain=0, Jaimes=2 15:03:51 HR=64 bpm, LNFC=072/94 mmhg, SpO2=96.0 %, Resp=30 B/min, Pain=0, Jaimes=2 15:08:52 HR=56 bpm, BYZL=784/103 mmhg, SpO2=96.0 %, Resp=14 B/min, Pain=0, Jaimes=2 15:13:38 Sterile dressing applied to site 15:14:26 HR=62 bpm, KNVK=022/100 mmhg, SpO2=94.0 %, Resp=25 B/min, Pain=0, Jaimes=2 15:15:25 Called CIC. Spoke to Jillian. 15:16:00 Vitals capture stopped. 15:17:32 Patient moved to stretcher End Study - Contrast Media Used In Study Contrast Total Opened (mL) Total Used (mL) Total Wasted (mL) Omnipaque 80 80 0 End Study - Maximum Contrast Load Max Contrast Load (mL) 465.5 End Study - Radiation Exposure Fluoro Time (minutes) 4.3 End Study - Sheaths Sheaths Pulled By Sheath Hold Time (min) Ekaterina Tripp End Study - Patient Disposition Complications Transferred To Interventional Outcome No Telemetry Bed No attempt made
[2017-03-11] MEDS ORDERED: IOHEXOL 350 MG/ML 100 ML BTL (for Cath Lab) OTHER ONE (15:24)
--- NOTE | 2017-03-11 16:28 | PD.CAR.PN ---
CVT Progress Note Subjective/Hospital Course: sts data discussed with pt RISK SCORES About the STS Risk Calculator Procedure: CAB Only Risk of Mortality: 1.306% Morbidity or Mortality: 10.986% Long Length of Stay: 4.292% Short Length of Stay: 47.882% Permanent Stroke: 0.709% Prolonged Ventilation: 6.939% DSW Infection: 0.371% Renal Failure: 2.729% Reoperation: 4.588% Objective: Vital Signs Date Time Temp Pulse Resp B/P (MAP) Pulse Ox O2 Delivery O2 Flow Rate FiO2 03/11/17 16:18 73 16 160/94 (116) 03/11/17 12:55 97.8 68 16 131/83 (99) 03/11/17 12:35 72 19 132/80 (97) 97 03/11/17 11:30 70 20 134/81 (98) 97 Room Air 03/11/17 10:30 74 18 141/81 (101) 96 Room Air 03/11/17 09:30 74 18 150/88 (108) 97 Room Air 03/11/17 08:30 70 17 132/81 (98) 97 Room Air 03/11/17 07:30 98.1 75 19 122/70 (87) 97 Room Air 03/11/17 07:00 70 97 Room Air 03/11/17 06:38 56 18 107/77 (87) 96 03/11/17 03:00 58 16 134/81 (98) 97 Room Air 03/10/17 23:00 66 16 143/90 (107) 98 Room Air 03/10/17 19:06 58 16 156/86 (109) 03/10/17 17:59 55 16 174/89 (117) 96 Room Air Labs: Laboratory Tests Test 03/11/17 08:06 White Blood Count 5.3 TH/MM3 (4.0-11.0) Red Blood Count 4.33 MIL/MM3 (4.50-5.90) Hemoglobin 12.9 GM/DL (13.0-17.0) Hematocrit 37.6 % (39.0-51.0) Mean Corpuscular Volume 86.9 FL (80.0-100.0) Mean Corpuscular Hemoglobin 29.9 PG (27.0-34.0) Mean Corpuscular Hemoglobin Concent 34.4 % (32.0-36.0) Red Cell Distribution Width 14.0 % (11.6-17.2) Platelet Count 160 TH/MM3 (150-450) Mean Platelet Volume 8.3 FL (7.0-11.0) Neutrophils (%) (Auto) 72.2 % (16.0-70.0) Lymphocytes (%) (Auto) 19.1 % (9.0-44.0) Monocytes (%) (Auto) 8.6 % (0.0-8.0) Eosinophils (%) (Auto) 0.0 % (0.0-4.0) Basophils (%) (Auto) 0.1 % (0.0-2.0) Neutrophils # (Auto) 3.8 TH/MM3 (1.8-7.7) Lymphocytes # (Auto) 1.0 TH/MM3 (1.0-4.8) Monocytes # (Auto) 0.5 TH/MM3 (0-0.9) Eosinophils # (Auto) 0.0 TH/MM3 (0-0.4) Basophils # (Auto) 0.0 TH/MM3 (0-0.2) CBC Comment DIFF FINAL Differential Comment Activated Partial Thromboplast Time 42.2 SEC (24.3-30.1) Result Diagram: 03/11/17 0806 03/11/17 0415 Shayla Thomas Mar 11, 2017 16:28
[2017-03-11] MEDS ORDERED: METOPROLOL TARTRATE 25 MG TAB PO SCH (16:45)
[2017-03-11] MEDS ORDERED: DEXTROSE 50% IN WATER 50 ML VIAL(D50) IV PUSH PRN (16:45)
[2017-03-11] MEDS ORDERED: PAPAVERINE INJ 60 MG, NITROGLYCERIN INJ 100 MCG, DILTIAZEM INJ 100 MG in SODIUM CHLORID... IRRIGATION SCH (16:45)
[2017-03-11] MEDS ORDERED: ceFAZolin 2 GM PREMIX 50 ML IV SCH (16:45)
[2017-03-11] MEDS ORDERED: CHLORHEXIDINE GLUCONATE 4% SOLN 120 ML BTL TOPICAL SCH (16:45)
[2017-03-11] MEDS ORDERED: CEFAZOLIN INJ 500 MG in SODIUM CHLORIDE 0.9% IRR BTL 500 ML IRRIGATION SCH (16:45)
[2017-03-11] MEDS ORDERED: INSULIN REGULAR (IV INFUSION) 100 UNITS in SODIUM CHLORIDE 0.9% INJ 99 ML IV PRN (16:45)
[2017-03-11] MEDS ORDERED: SODIUM CHLORIDE 0.9% FLUSH 10 ML FLUSH IV FLUSH PRN (16:45)
[2017-03-11 17:28] LABS: HEMATOCRIT 40.2 % (39.0-51.0); MEAN CELL VOLUME 86.7 FL (80.0-100.0); MEAN CORPUSCULAR HEMOGLOBIN 30.1 PG (27.0-34.0); MEAN CORPUSCULAR HGB CONC 34.7 % (32.0-36.0); PLATELET COUNT 188 TH/MM3 (150-450); RED BLOOD COUNT 4.64 MIL/MM3 (4.50-5.90); RED CELL DISTRIBUTION WIDTH 14.2 % (11.6-17.2); WHITE BLOOD COUNT 6.9 TH/MM3 (4.0-11.0)
[2017-03-11 17:43] LABS: INTERNATIONAL NORMALIZED RATIO 1.1 RATIO; PROTHROMBIN TIME - PATIENT 11.4 SEC (9.8-11.6)
[2017-03-11] MEDS: NITROGLYCERIN 2% OINT 1 GM PACKET TOPICAL SCH ×3 (17:46→23:16)
--- NOTE | 2017-03-11 19:49 | RADRPT ---
EXAM DATE/TIME: 03/11/2017 17:19 [facility] COMPARISON: No previous studies available for comparison. INDICATIONS : Pre-Op cardiac surgery. MEDICAL HISTORY : Myocardial infarction. Hypertension. Prostate cancer. SURGICAL HISTORY : Cardiac catheterization. Prostatectomy. ENCOUNTER: Initial ACUITY: 1 day PAIN SCORE: 0/10 LOCATION: Bilateral leg. TECHNIQUE: Venous ultrasound of the left and right leg was performed from the inguinal ligament to the proximal calf. Real-time, color Doppler and spectral tracing, compression and augmentation techniques were us ed. FINDINGS: RIGHT LEG: There is normal compressibility of the deep venous system from the inguinal region to the proximal ca lf. No echogenic clot is seen in the lumen of the common femoral, femoral, popliteal, and posterior tibial veins. There is a normal response of the venous system to proximal and distal augmentation an d respiration. LEFT LEG: There is normal compressibility of the deep venous system from the inguinal region to the proximal ca lf. No echogenic clot is seen in the lumen of the common femoral, femoral, popliteal, and posterior tibial veins. There is a normal response of the venous system to proximal and distal augmentation an d respiration. CONCLUSION: Normal examination. Konstantin Mueller MD on March 11, 2017 at 19:46 Board Certified Radiologist. This report was verified electronically.
--- NOTE | 2017-03-11 19:49 | RADRPT ---
EXAM DATE/TIME: 03/11/2017 17:26 [facility] COMPARISON: No previous studies available for comparison. INDICATIONS : Pre-Op cardiac surgery. MEDICAL HISTORY : Prostate cancer. SURGICAL HISTORY : Cardiac catheterization. Prostatectomy. ENCOUNTER: Initial ACUITY: 1 day PAIN SCORE: 0/10 LOCATION: Bilateral legs. GREATER SAPHENOUS VEIN THIGH: PROXIMAL: Right 4 mm Left 7 mm MID: Right 3 mm Left 4 mm DISTAL: Right 4 mm Left 4 mm CALF: PROXIMAL: Right 3 mm Left 3 mm MID: Right 2 mm Left 3 mm DISTAL: Right 2 mm Left 2 mm FINDINGS: The venous system of the lower extremities are patent by color Doppler imaging. Measurements of the leg veins (in mm) are listed above. CONCLUSION: 1. Venous measurements as above. Konstantin Mueller MD on March 11, 2017 at 19:47 Board Certified Radiologist. This report was verified electronically.
--- NOTE | 2017-03-11 19:50 | RADRPT ---
EXAM DATE/TIME: 03/11/2017 17:47 [facility] COMPARISON: No previous studies available for comparison. INDICATIONS : Pre-Op cardiac surgery. MEDICAL HISTORY : Myocardial infarction. Hypertension. Prostate cancer. SURGICAL HISTORY : Cardiac catheterization. Prostatectomy. ENCOUNTER: Initial ACUITY: 1 day PAIN SCORE: 0/10 LOCATION: Bilateral neck PEAK SYSTOLIC VELOCITIES (cm/sec): ICA/CCA RATIO: Right: 1.5 Left: 1.2 ICA: Right: 93 Left: 80 CCA: Right: 64 Left: 66 ECA: Right: 63 Left: 79 VERTEBRAL: Right: 48 antegrade Left: 36 antegrade Elevated flow velocities and ICA/CCA ratios have been found to correlate with increased degrees of vessel stenosis, calculated as percentage of diameter relative to a normal segment of distal ICA/CCA FINDINGS: RIGHT CAROTID: No significant stenosis is visualized. The waveforms are within normal limits. LEFT CAROTID: No significant stenosis is visualized. The waveforms are within normal limits. VERTEBRAL ARTERIES: Antegrade flow is seen in both vertebral arteries. MISCELLANEOUS: None. CONCLUSION: 1. Minimal plaque without carotid stenosis. Vertebral artery flow antegrade. Konstantin Mueller MD on March 11, 2017 at 19:47 Board Certified Radiologist. This report was verified electronically.
[2017-03-11] MEDS ORDERED: ATROPINE SULFATE 1 MG/10 ML SYRINGE ONE (21:57)
[2017-03-11] MEDS ORDERED: EPINEPHrine HCL (1:10,000) 1 MG/10 ML SYRINGE ONE (21:58)
--- NOTE | 2017-03-11 22:25 | RADRPT ---
EXAM DATE/TIME: 03/11/2017 22:03 [facility] COMPARISON: No previous studies available for comparison. INDICATIONS : Pre operative CABG. RADIATION DOSE: 12.05 CTDIvol (mGy) MEDICAL HISTORY : Cardiovascular disease. Hypertension. Carcinoma, not otherwise specified. SURGICAL HISTORY : None. ENCOUNTER: Initial ACUITY: 1 day PAIN SCALE: 0/10 LOCATION: Bilateral chest TECHNIQUE: Volumetric scanning of the chest was performed. Using automated exposure control and adjustment of t he mA and/or kV according to patient size, radiation dose was kept as low as reasonably achievable to obtain optimal diagnostic quality images. DICOM format image data is available electronically for r eview and comparison. Follow-up recommendations for detected pulmonary nodules are based at a minimum on nodule size and pa tient risk factors according to Fleischner Society Guidelines. FINDINGS: There is parenchymal scarring, fibrosis and some traction bronchiectasis in the left paramediastinal region presumably from previous radiation. There is parenchymal scarring in the left lung and to a le sser extent on the right. No dense consolidation. No pleural pericardial effusion. No adenopathy. Mod erate to severe coronary calcifications. No acute findings in the upper abdomen. CONCLUSION: 1. Parenchymal scarring in the left lung, especially in the paramediastinal region. No consolidation, effusion or adenopathy. Dense coronary calcifications. Konstantin Mueller MD on March 11, 2017 at 22:20 Board Certified Radiologist. This report was verified electronically.
[2017-03-11 22:32] LABS: BILIRUBIN, URINE NEG (NEG); BLOOD, URINE NEG (NEG); GLUCOSE,URINE NEG (NEG); KETONE, URINE NEG (NEG); NITRITE,URINE NEG (NEG); PH, URINE 7.5 (5.0-8.5); URINE COLOR YELLOW (YELLW/STRAW); URINE LEUKOCYTE ESTERASE NEG (NEG)
--- NOTE | 2017-03-11 22:43 | MA ---
cc: JOSE ALBERTO VÁZQUEZ MD DATE: 03/11/2017 INDICATIONS FOR CATHETERIZATION Unstable angina. Acute coronary syndrome. PROCEDURE: Cardiac catheterization. CONSENT: A full informed consent was obtained prior to the procedure. The risks of , bleeding, myocardial infarction, perforation, aspiration, foreseen and unforeseen complications were reviewed. The patient fully appeared to understand the risks. PROCEDURAL STATEMENTS: The patient was draped and prepped in the usual manner. The right femoral artery was entered using micropuncture technique with ultrasound. Via the 4 Macedonian sheath, left and right coronary catheters were used to intubate the left and right coronaries. Pigtail catheter was used to intubate the left ventricle. Multiple angiographic views were carried out. At the end of the catheterization procedure, all catheters and sheaths were removed. Manual pressure was applied to the wound. Good hemostasis was achieved. The patient returned to his room in stable condition. FINDINGS HEMODYNAMICS: Aortic pressure was 132/70 with a mean of 96. The left ventricular pressure was 138 with a left ventricular end-diastolic pressure of 23. There was no evidence of significant gradient on pullback across the LV outflow tract and aortic valve. LEFT VENTRICULOGRAM: The overall left ventricular ejection fraction was 60%. There was no evidence of significant mitral regurgitation or mural thrombus. CORONARY ARTERIES: The left main was a very short left main. There was almost separate ostia for the LAD and the diagonal branch. The LAD itself was diffusely diseased. It was about 50% proximally. In the mid LAD was 80% stenosis. In the mid to distal LAD a further 80% stenosis and in the very distal LAD, a further 80% stenosis. The whole vessel had diffuse disease. The circumflex artery had some mild diffuse disease. There is a large first obtuse marginal branch and a medium second obtuse marginal branch had a 60% stenosis. The right coronary artery was a dominant vessel. It had diffuse disease throughout its length. In the mid RCA, there was a long 50% stenosis. Following this, in the mid to distal RCA was a 95% stenosis which was hazy. There was a large posterior descending artery and large posterolateral branch. CONCLUSION Severe two to three vessel coronary artery disease. PLAN Bypass surgery to the distal right and to the diffusely diseased LAD. The circumflex can be managed medically most likely. SANTIAGO Joseph MD,[facility]ITALJakob BLUNT/VINAY /3:00 PM /10:21 PM
[2017-03-11] MEDS: HEPARIN-D5W 25,000 U/250 ML 250 ML IV PRN (23:23)
[2017-03-12] VITALS (24 sets, daily range): BP systolic 125–146; BP diastolic 77–91; PULSE 52–88; RESP 16–18; TEMP 97.7–98.4; O2SAT 94–98
[2017-03-12] MEDS: NITROGLYCERIN 2% OINT 1 GM PACKET TOPICAL SCH ×2 (04:45→14:00)
[2017-03-12 07:09] LABS: ALBUMIN 3.3 GM/DL (3.4-5.0); ALT (GPT) 19 U/L (12-78); AST (GOT) 16 U/L (15-37); BICARBONATE 23.2 MEQ/L (21.0-32.0); BLOOD UREA NITROGEN 16 MG/DL (7-18); CALCIUM 8.1 MG/DL (8.5-10.1); CHLORIDE 113 MEQ/L (98-107); CREATININE 0.99 MG/DL (0.60-1.30); GLOMERULAR FILTRATION RATE 73 ML/MIN (>89); GLUCOSE,RANDOM 89 MG/DL (74-106); SODIUM (NA) 145 MEQ/L (136-145)
[2017-03-12 07:12] LABS: ALKALINE PHOSPHATASE 67 U/L (45-117); TOTAL BILIRUBIN ADULT 0.6 MG/DL (0.2-1.0); TOTAL PROTEIN 6.5 GM/DL (6.4-8.2)
--- NOTE | 2017-03-12 08:33 | MB ---
cc: ISABEL MANNING MD DATE OF CONSULTATION 03/11/2017 DATE OF 1940. HISTORY OF THE PRESENT ILLNESS A 76-year-old male. Patient of Dr. Faraz Del Real, Dr. Stewart who recently had a stress test back in October of 2015 for left-sided chest discomfort, essentially negative. But over the past couple of days he started having a different kind of pain. This was a burning type pain that went down his arm. [place] walking in the mall. It happened a few times over the last few weeks and yesterday was severe enough to come into the emergency department. Troponins were negative, however, due to his history or risk factors he underwent cardiac catheterization by Dr. Stewart today which showed an ejection fraction of 60%, proximal LAD 80%, mid distal LAD had two areas of 80% stenosis. The circ had 50%. Right coronary artery had 95% stenosis. We were consulted to evaluate for coronary artery bypass grafting. PAST MEDICAL HISTORY The patient's past medical history: 1. Hyperlipidemia. 2. Hypertension. 3. Malignant thymoma. PAST SURGICAL HISTORY Surgeries include: 1. Thymectomy with a left thoracotomy approach three years [address] at [facility] where he had also radiation for six weeks post. 2. Prostatectomy. 3. Hemorrhoidectomy. ALLERGIES NO KNOWN ALLERGIES. MEDICATIONS He takes: 1. Cozaar. 2. Norvasc. 3. Simvastatin. 4. Tylenol. 5. Aspirin. FAMILY HISTORY Mother decreased of old age at 96. Father at 69 from complications of hernia. SOCIAL HISTORY The patient smoked for about 35 years, quit at age 48. No alcohol. No illicit drugs. He is . REVIEW OF SYSTEMS GENERAL: Denies night sweats, fever, heat or cold intolerance. SKIN: No psoriasis, itching or hives. HEENT: No blurred vision, hearing loss. He does wear glasses. RESPIRATORY: No shortness of breath. CARDIOVASCULAR: As above in the history of present illness. GASTROINTESTINAL: No diarrhea, vomiting. GENITOURINARY: No burning, frequency, urgency CENTRAL NERVOUS SYSTEM: No history of TIA, CVA, seizure disorder. ENDOCRINOLOGY: No diabetes or hypothyroidism. PHYSICAL EXAMINATION VITAL SIGNS: On exam blood pressure was 160/90, heart rate 70, temp max 97.8. GENERAL: The patient is awake, alert, in no acute distress. HEENT: Head is normocephalic, atraumatic. Pupils equal and reactive. Oral mucosa pink, moist. NECK: Supple. No JVD. CARDIOVASCULAR: Heart sounds S1-S2, regular rate and rhythm. No rubs, murmurs or gallops. LUNGS: Clear to auscultation. No wheezes, rales or rhonchi. He has a well healed left thoracotomy scar in the left posterolateral chest wall. ABDOMEN: Soft, nontender. No masses or organomegaly. EXTREMITIES: No cyanosis, clubbing or edema. SKIN: No psoriasis, rashes. He does have some actinic changes to the skin. LABORATORY DATA His lab work shows hemoglobin 12.9, hematocrit of 37, white cell count of 5.3, platelet count of 160. Sodium 145, potassium 3.5, BUN 19, creatinine 1.09. Troponin 10.05. IMAGING A chest x-ray shows multiple old left rib fractures. EKG shows sinus rhythm with Q waves in the inferior leads. IMPRESSION This is a gentleman with two vessel coronary artery disease. His cardiac films have been evaluated by Dr. Isabel Manning. Procedures, alternatives and risks have been discussed with the patient and his . The patient is agreeable to proceed with surgery. Since the patient has had a history of thymectomy with a left thoracotomy approach we will check a CT chest for any further abnormalities. In the meantime he will have further workup with carotid ultrasound, leg vein mapping and other laboratory work. We plan to also restart heparin this evening. DICTATED BY: ADORE Lai Isabel OLIVER/CHAUNCEY /4:38 PM /8:08 AM
[2017-03-12] MEDS: METOPROLOL TARTRATE 25 MG TAB PO SCH ×2 (09:31→21:14)
[2017-03-12] MEDS: ATORVASTATIN 20 MG TAB PO SCH (09:31)
[2017-03-12] MEDS: SODIUM CHLORIDE 0.9% FLUSH 10 ML FLUSH IV FLUSH SCH ×2 (09:31→21:14)
[2017-03-12] MEDS ORDERED: POTASSIUM CHLORIDE 10 MEQ CONTROLLED RELEASE TAB PO ONE (10:30)
[2017-03-12] MEDS ORDERED: NITROGLYCERIN-D5W 50 MG/250 ML 250 ML IV PRN (10:45)
--- NOTE | 2017-03-12 10:45 | PD.CARD.PN ---
Subjective Subjective Remarks The patient continues to complain of "very mild" chest pain at rest. He has on nitro paste 1 in. HR stable. BP stable (Edilia Taylor) Objective Medications Current Medications Medications (Trade) Dose Ordered Sig/Antonia Route Start Time Stop Time Status Last Admin (Narcan Inj) 0.4 mg UNSCH PRN IV PUSH 03/10/17 19:15 (Aspirin) 325 mg RUNNING INSTRUCTOR PO 03/11/17 10:45 03/15/17 10:44 03/11/17 11:23 (Lopressor) 25 mg Q12HR PO 03/11/17 11:00 03/12/17 09:31 (Nitroglycerin 2% Oint) 1 inch Q8HR TOPICAL 03/11/17 14:00 03/11/17 23:16 (Lipitor) 20 mg DAILY PO 03/11/17 11:00 03/12/17 09:31 Sodium Chloride 1,000 ml @ 0 mls/hr Q0M IV 03/11/17 15:09 Heparin Sodium/ Dextrose 250 ml @ 10 mls/hr TITRATE PRN IV 03/11/17 21:00 03/11/17 23:23 (NS Flush) 2 ml BID IV FLUSH 03/11/17 21:00 03/12/17 09:31 (NS Flush) 2 ml UNSCH PRN IV FLUSH 03/11/17 16:45 Papaverine HCl 60 mg/Nitroglycerin 100 mcg/Diltiazem HCl 100 mg/Sodium Chloride 100 ml @ 0 mls/hr RUNNING INSTRUCTOR IRRIGATION 03/11/17 16:45 03/18/17 16:44 Cefazolin Sodium 500 mg/Sodium Chloride 505 ml @ 0 mls/hr RUNNING INSTRUCTOR IRRIGATION 03/11/17 16:45 03/18/17 16:44 Cefazolin Sodium/ Dextrose 50 ml @ 150 mls/hr RUNNING INSTRUCTOR IV 03/11/17 16:45 03/18/17 16:44 (Lopressor) 12.5 mg RUNNING INSTRUCTOR PO 03/11/17 16:45 03/18/17 16:44 (Hibiclens 4% Top Soln) 1 applic RUNNING INSTRUCTOR TOPICAL 03/11/17 16:45 03/18/17 16:44 Insulin Human Regular 100 units/ Sodium Chloride 100 ml @ 3 mls/hr TITRATE PRN IV 03/11/17 16:45 03/18/17 16:44 (D50w (Vial) Inj) 50 ml UNSCH PRN IV PUSH 03/11/17 16:45 Vital Signs / I&O Vital Signs Date Time Temp Pulse Resp B/P (MAP) Pulse Ox O2 Delivery O2 Flow Rate FiO2 03/12/17 06:23 60 03/12/17 05:41 53 03/12/17 03:56 58 03/12/17 03:00 98.4 65 128/82 (97) 94 03/12/17 01:00 58 03/12/17 00:21 98.0 68 133/82 (99) 96 03/12/17 00:00 66 03/11/17 23:00 69 03/11/17 22:00 59 03/11/17 21:00 60 03/11/17 20:00 64 03/11/17 20:00 98.3 63 142/84 (103) 97 03/11/17 19:00 65 03/11/17 18:00 78 03/11/17 17:00 60 03/11/17 16:18 73 16 160/94 (116) 03/11/17 16:00 60 03/11/17 15:00 60 03/11/17 13:00 62 03/11/17 12:55 97.8 68 16 131/83 (99) 03/11/17 12:35 72 19 132/80 (97) 97 03/11/17 11:30 70 20 134/81 (98) 97 Room Air I/O 03/11/17 03/11/17 03/11/17 03/12/17 03/12/17 03/12/17 07:00 15:00 23:00 07:00 15:00 23:00 Intake Total 1220 ml 480 ml Output Total 400 ml 300 ml Balance 820 ml 180 ml Intake Oral 720 ml 480 ml IV Total 500 ml Output Urine Total 400 ml 300 ml # Voids 1 1 # Bowel Movements 1 Physical Exam GENERAL: Young appearing 76 year old, NAD SKIN: Warm and dry. HEAD: Normocephalic. EYES: No scleral icterus. No injection or drainage. NECK: Supple, trachea midline. CARDIOVASCULAR: Regular rate and rhythm RESPIRATORY: Breath sounds equal bilaterally. No accessory muscle use. GASTROINTESTINAL: Abdomen soft, non-tender, nondistended. MUSCULOSKELETAL: No cyanosis, or edema. BACK: Nontender without obvious deformity. No CVA tenderness. Laboratory Laboratory Tests Test 03/11/17 17:01 03/11/17 19:30 03/11/17 22:20 03/12/17 05:29 White Blood Count 6.9 TH/MM3 Red Blood Count 4.64 MIL/MM3 Hemoglobin 14.0 GM/DL Hematocrit 40.2 % Mean Corpuscular Volume 86.7 FL Mean Corpuscular Hemoglobin 30.1 PG Mean Corpuscular Hemoglobin Concent 34.7 % Red Cell Distribution Width 14.2 % Platelet Count 188 TH/MM3 Mean Platelet Volume 8.0 FL Prothrombin Time 11.4 SEC Prothromb Time International Ratio 1.1 RATIO Activated Partial Thromboplast Time 26.4 SEC 37.5 SEC Nasal Screen MRSA (PCR) MRSA NOT DETECTED Urine Color YELLOW Urine Turbidity CLEAR Urine pH 7.5 Urine Specific [place] 1.046 Urine Protein TRACE mg/dL Urine Glucose (UA) NEG mg/dL Urine Ketones NEG mg/dL Urine Occult Blood NEG Urine Nitrite NEG Urine Bilirubin NEG Urine Urobilinogen LESS THAN 2.0 MG/DL Urine Leukocyte Esterase NEG Urine RBC LESS THAN 1 /hpf Urine WBC LESS THAN 1 /hpf Microscopic Urinalysis Comment CULT NOT INDICATED Blood Urea Nitrogen 16 MG/DL Creatinine 0.99 MG/DL Random Glucose 89 MG/DL Total Protein 6.5 GM/DL Albumin 3.3 GM/DL Calcium Level 8.1 MG/DL Alkaline Phosphatase 67 U/L Aspartate Amino Transf (AST/SGOT) 16 U/L Alanine Aminotransferase (ALT/SGPT) 19 U/L Total Bilirubin 0.6 MG/DL Sodium Level 145 MEQ/L Potassium Level 3.2 MEQ/L Chloride Level 113 MEQ/L Carbon Dioxide Level 23.2 MEQ/L Anion Gap 9 MEQ/L Estimat Glomerular Filtration Rate 73 ML/MIN Imaging Last 72 hours Impressions Lower Extremity Ultrasound 03/11/17 0000 Signed Impressions: Service Date/Time: Saturday, March 11, 2017 17:26 - CONCLUSION: 1. Venous measurements as above. Konstantin Mueller MD Lower Extremity Ultrasound 03/11/17 0000 Signed Impressions: Service Date/Time: Saturday, March 11, 2017 17:19 - CONCLUSION: Normal examination. Konstantin Mueller MD Chest CT 03/11/17 0000 Signed Impressions: Service Date/Time: Saturday, March 11, 2017 22:03 - CONCLUSION: 1. Parenchymal scarring in the left lung, especially in the paramediastinal region. No consolidation, effusion or adenopathy. Dense coronary calcifications. Konstantin Mueller MD Carotid Artery Ultrasound 03/11/17 0000 Signed Impressions: Service Date/Time: Saturday, March 11, 2017 17:47 - CONCLUSION: 1. Minimal plaque without carotid stenosis. Vertebral artery flow antegrade. Konstantin Mueller MD Chest X-Ray 03/10/17 1522 Signed Impressions: Service Date/Time: Friday, March 10, 2017 15:32 - CONCLUSION: 1. Multiple old left-sided rib fractures and linear parenchymal opacities in the left lower lobe with associated architectural distortion and volume loss likely reflecting scarring. Tru Miranda MD (Edilia Taylor) Assessment and Plan Assessment and Plan Unstable angina, s/p cardiac cath 03/11/2017, multivessel CAD, pending CABG PLAN: Continue heparin Start nitro infusion Continue BB and statin Hold NPO until further evaluated by Dr Gonzalez today to determine surgery date and time The patient was seen and evaluated by Dr Stewart who completed face to face encounter and physical exam and participated in evaluation and management. (Edilia Taylor) Assessment and Plan The exam, history, and the medical decision-making described in the above note were completed with the assistance of the mid-level provider. I reviewed and agree with the findings presented. I attest that I had a [id number] encounter with the patient on the same day, and personally performed and documented my assessment and findings in the medical record. for CABG (Wilber Stewart MD) Edilia Taylor Mar 12, 2017 10:45 Wilber Stewart MD Mar 13, 2017 15:12
--- NOTE | 2017-03-12 12:18 | HHI.PR ---
Subjective Remarks This is a pleasant 76 y/o Male with Hypertension, Hyperlipidemia, History of Thymoma, who came to ER with Chest pain, seen in his bedroom in the presence of his , he had Cardiac Cath no result in EMR but was recommended for Cardiothoracic surgery evaluation for probable Coronary artery bypass surgery. stable after procedure. 03/12: Stable seen in his bedroom and discussed with his and nurse, he has chest pain and was started on Nitroglycerine he had Cardiac cath that found Two to three vessel coronary artery disease, seen by Cardiothoracic surgery Doctor Aquiles Gonzalez recommended CT chest to evaluate for probable abnormalities, he had Thymectomy and left thoracotomy, will have CABG tomorrow, no nausea, vomit or diarrhea, has Hypokalemia on active replacement. Objective Vital Signs Date Time Temp Pulse Resp B/P (MAP) Pulse Ox O2 Delivery O2 Flow Rate FiO2 03/12/17 11:10 56 121/74 03/12/17 06:23 60 03/12/17 05:41 53 03/12/17 03:56 58 03/12/17 03:00 98.4 65 128/82 (97) 94 03/12/17 01:00 58 03/12/17 00:21 98.0 68 133/82 (99) 96 03/12/17 00:00 66 03/11/17 23:00 69 03/11/17 22:00 59 03/11/17 21:00 60 03/11/17 20:00 64 03/11/17 20:00 98.3 63 142/84 (103) 97 03/11/17 19:00 65 03/11/17 18:00 78 03/11/17 17:00 60 03/11/17 16:18 73 16 160/94 (116) 03/11/17 16:00 60 03/11/17 15:00 60 03/11/17 13:00 62 03/11/17 12:55 97.8 68 16 131/83 (99) 03/11/17 12:35 72 19 132/80 (97) 97 I/O 03/11/17 03/11/17 03/11/17 03/12/17 03/12/17 03/12/17 07:00 15:00 23:00 07:00 15:00 23:00 Intake Total 1220 ml 480 ml Output Total 400 ml 300 ml Balance 820 ml 180 ml Intake Oral 720 ml 480 ml IV Total 500 ml Output Urine Total 400 ml 300 ml # Voids 1 1 # Bowel Movements 1 Result Diagram: 03/11/17 1701 03/12/17 0529 Imaging Last Impressions Lower Extremity Ultrasound 03/11/17 0000 Signed Impressions: Service Date/Time: Saturday, March 11, 2017 17:26 - CONCLUSION: 1. Venous measurements as above. Konstantin Mueller MD Chest CT 03/11/17 0000 Signed Impressions: Service Date/Time: Saturday, March 11, 2017 22:03 - CONCLUSION: 1. Parenchymal scarring in the left lung, especially in the paramediastinal region. No consolidation, effusion or adenopathy. Dense coronary calcifications. Konstantin Mueller MD Carotid Artery Ultrasound 03/11/17 0000 Signed Impressions: Service Date/Time: Saturday, March 11, 2017 17:47 - CONCLUSION: 1. Minimal plaque without carotid stenosis. Vertebral artery flow antegrade. Konstantin Mueller MD Chest X-Ray 03/10/17 1522 Signed Impressions: Service Date/Time: Friday, March 10, 2017 15:32 - CONCLUSION: 1. Multiple old left-sided rib fractures and linear parenchymal opacities in the left lower lobe with associated architectural distortion and volume loss likely reflecting scarring. Tru Miranda MD Procedures Cardiac Cath found two to three vessel disease. Other Results Laboratory Tests Test 03/10/17 15:55 03/11/17 04:15 03/11/17 08:06 03/11/17 17:01 Blood Urea Nitrogen 20 MG/DL Creatinine 1.22 MG/DL Random Glucose 111 MG/DL Calcium Level 9.4 MG/DL Magnesium Level 2.3 MG/DL Sodium Level 141 MEQ/L Potassium Level 4.2 MEQ/L Chloride Level 109 MEQ/L Carbon Dioxide Level 26.2 MEQ/L Total Creatine Kinase 70 U/L Troponin I 0.05 NG/ML Neutrophils (%) (Auto) 72.2 % Lymphocytes (%) (Auto) 19.1 % Monocytes (%) (Auto) 8.6 % Eosinophils (%) (Auto) 0.0 % Basophils (%) (Auto) 0.1 % Neutrophils # (Auto) 3.8 TH/MM3 Lymphocytes # (Auto) 1.0 TH/MM3 Monocytes # (Auto) 0.5 TH/MM3 Eosinophils # (Auto) 0.0 TH/MM3 Basophils # (Auto) 0.0 TH/MM3 CBC Comment DIFF FINAL Differential Comment White Blood Count 6.9 TH/MM3 Red Blood Count 4.64 MIL/MM3 Hemoglobin 14.0 GM/DL Hematocrit 40.2 % Mean Corpuscular Volume 86.7 FL Mean Corpuscular Hemoglobin 30.1 PG Mean Corpuscular Hemoglobin Concent 34.7 % Red Cell Distribution Width 14.2 % Platelet Count 188 TH/MM3 Mean Platelet Volume 8.0 FL Prothrombin Time 11.4 SEC Prothromb Time International Ratio 1.1 RATIO Test 03/11/17 19:30 03/11/17 22:20 03/12/17 05:29 Nasal Screen MRSA (PCR) MRSA NOT DETECTED Urine Color YELLOW Urine Turbidity CLEAR Urine pH 7.5 Urine Specific [place] 1.046 Urine Protein TRACE mg/dL Urine Glucose (UA) NEG mg/dL Urine Ketones NEG mg/dL Urine Occult Blood NEG Urine Nitrite NEG Urine Bilirubin NEG Urine Urobilinogen LESS THAN 2.0 MG/DL Urine Leukocyte Esterase NEG Urine RBC LESS THAN 1 /hpf Urine WBC LESS THAN 1 /hpf Microscopic Urinalysis Comment CULT NOT INDICATED Activated Partial Thromboplast Time 37.5 SEC Blood Urea Nitrogen 16 MG/DL Creatinine 0.99 MG/DL Random Glucose 89 MG/DL Total Protein 6.5 GM/DL Albumin 3.3 GM/DL Calcium Level 8.1 MG/DL Alkaline Phosphatase 67 U/L Aspartate Amino Transf (AST/SGOT) 16 U/L Alanine Aminotransferase (ALT/SGPT) 19 U/L Total Bilirubin 0.6 MG/DL Sodium Level 145 MEQ/L Potassium Level 3.2 MEQ/L Chloride Level 113 MEQ/L Carbon Dioxide Level 23.2 MEQ/L Anion Gap 9 MEQ/L Estimat Glomerular Filtration Rate 73 ML/MIN Objective Remarks GENERAL: No acute distress. SKIN: No rashes, ecchymoses or lesions. Cool and dry. HEAD: Atraumatic. Normocephalic. No temporal or scalp tenderness. EYES: Pupils equal round and reactive. Extraocular motions intact. No scleral icterus. No injection or drainage. ENT: Nose without bleeding, purulent drainage or septal hematoma. Throat without erythema, tonsillar hypertrophy or exudate. Uvula midline. Airway patent. NECK: Trachea midline. No JVD or lymphadenopathy. Supple, nontender, no meningeal signs. CARDIOVASCULAR: Regular rate and rhythm without murmurs, gallops, or rubs. RESPIRATORY: Clear to auscultation. Breath sounds equal bilaterally. No wheezes , rales, or rhonchi. GASTROINTESTINAL: Abdomen soft, non-tender, nondistended. No hepato-splenomegaly , or palpable masses. No guarding. MUSCULOSKELETAL: Extremities without clubbing, cyanosis, or edema. No joint tenderness, effusion, or edema noted. No calf tenderness. NEUROLOGICAL: Awake and alert. Cranial nerves II through XII intact. Motor and sensory grossly within normal limits. Normal speech. Medications and IVs Current Medications Medications (Trade) Dose Ordered Sig/Antonia Route Start Time Stop Time Status Last Admin (Narcan Inj) 0.4 mg UNSCH PRN IV PUSH 03/10/17 19:15 (Aspirin) 325 mg PARKING ENFORCEMENT MANAGER PO 03/11/17 10:45 03/15/17 10:44 03/11/17 11:23 (Lopressor) 25 mg Q12HR PO 03/11/17 11:00 03/12/17 09:31 (Nitroglycerin 2% Oint) 1 inch Q8HR TOPICAL 03/11/17 14:00 03/11/17 23:16 (Lipitor) 20 mg DAILY PO 03/11/17 11:00 03/12/17 09:31 Sodium Chloride 1,000 ml @ 0 mls/hr Q0M IV 03/11/17 15:09 Heparin Sodium/ Dextrose 250 ml @ 10 mls/hr TITRATE PRN IV 03/11/17 21:00 03/11/17 23:23 (NS Flush) 2 ml BID IV FLUSH 03/11/17 21:00 03/12/17 09:31 (NS Flush) 2 ml UNSCH PRN IV FLUSH 03/11/17 16:45 Papaverine HCl 60 mg/Nitroglycerin 100 mcg/Diltiazem HCl 100 mg/Sodium Chloride 100 ml @ 0 mls/hr PARKING ENFORCEMENT MANAGER IRRIGATION 03/11/17 16:45 03/18/17 16:44 Cefazolin Sodium 500 mg/Sodium Chloride 505 ml @ 0 mls/hr PARKING ENFORCEMENT MANAGER IRRIGATION 03/11/17 16:45 03/18/17 16:44 Cefazolin Sodium/ Dextrose 50 ml @ 150 mls/hr PARKING ENFORCEMENT MANAGER IV 03/11/17 16:45 03/18/17 16:44 (Lopressor) 12.5 mg PARKING ENFORCEMENT MANAGER PO 03/11/17 16:45 03/18/17 16:44 (Hibiclens 4% Top Soln) 1 applic PARKING ENFORCEMENT MANAGER TOPICAL 03/11/17 16:45 03/18/17 16:44 Insulin Human Regular 100 units/ Sodium Chloride 100 ml @ 3 mls/hr TITRATE PRN IV 03/11/17 16:45 03/18/17 16:44 (D50w (Vial) Inj) 50 ml UNSCH PRN IV PUSH 03/11/17 16:45 Nitroglycerin/ Dextrose 250 ml @ 1.5 mls/hr TITRATE PRN IV 03/12/17 10:45 03/12/17 11:10 A/P Assessment and Plan 1. Unstable Angina, EKG significant for sinus bradycardia without ST segment elevations or depressions, images reviewed by me Cardiac enzymes, Nitroglycerine, Telemetry, Status post Cardiology consult and Cardiac Cath, Cardiothoracic surgery following for Coronary Artery Bypass Graft probable tomorrow, has chest pain and was started on Nitroglycerine 2. Hypertension controlled. 3. Hyperlipidemia Continue home statin 4. Hypokalemia replaced and following Heparin ggt Discharge Planning Once cleared by Cardiothoracic surgery. Serafin Alexis MD Mar 12, 2017 12:18 pm
[2017-03-12] MEDS ORDERED: POTASSIUM CHLORIDE 20 MEQ CONTROLLED RELEASE TAB PO ONE (15:15)
--- NOTE | 2017-03-12 16:23 | PD.CAR.PN ---
CVT Progress Note Subjective/Hospital Course: 76-year-old male. Patient of Dr. Faraz Del Real, Dr. Stewart who recently had a stress test back in October of 2015 for left-sided chest discomfort, essentially negative. But over the past couple of days he started having a different kind of pain. This was a burning type pain that went down his arm. [place] the [place]. It happened a few times over the last few weeks and yesterday was severe enough to come into the emergency department. Troponins were negative, however, due to his history or risk factors he underwent cardiac catheterization by Dr. Stewart today which showed an ejection fraction of 60%, proximal LAD 80%, mid distal LAD had two areas of 80% stenosis. The circ had 50% . Right coronary artery had 95% stenosis. We were consulted to evaluate for coronary artery bypass grafting. PAST MEDICAL HISTORY: Hyperlipidemia, Hypertension, Malignant thymoma. PAST SURGICAL HISTORY: Thymectomy with a left thoracotomy approach three years ago at [facility] where he had also radiation for six weeks post, Prostatectomy. 03/12 pt had mild chest pain this am 02/25, Nitro gtt started by cardiology pt now pain free for surgery in am Objective: GENERAL: SKIN: Warm and dry. HEAD: Normocephalic. EYES: No scleral icterus. No injection or drainage. NECK: Supple, trachea midline. No JVD or lymphadenopathy. CARDIOVASCULAR: Regular rate and rhythm without murmurs, gallops, or rubs. RESPIRATORY: Breath sounds equal bilaterally. No accessory muscle use. GASTROINTESTINAL: Abdomen soft, non-tender, nondistended. MUSCULOSKELETAL: No cyanosis, or edema. BACK: Nontender without obvious deformity. No CVA tenderness. Vital Signs Date Time Temp Pulse Resp B/P (MAP) Pulse Ox O2 Delivery O2 Flow Rate FiO2 03/12/17 12:00 68 03/12/17 11:10 56 121/74 03/12/17 11:00 60 03/12/17 11:00 98.0 61 18 125/77 (93) 98 03/12/17 10:00 70 03/12/17 09:00 64 03/12/17 08:00 78 03/12/17 07:00 98.1 68 16 131/81 (98) 95 03/12/17 07:00 52 03/12/17 06:23 60 03/12/17 05:41 53 03/12/17 03:56 58 03/12/17 03:00 98.4 65 128/82 (97) 94 03/12/17 01:00 58 03/12/17 00:21 98.0 68 133/82 (99) 96 03/12/17 00:00 66 03/11/17 23:00 69 03/11/17 22:00 59 03/11/17 21:00 60 03/11/17 20:00 64 03/11/17 20:00 98.3 63 142/84 (103) 97 03/11/17 19:00 65 03/11/17 18:00 78 03/11/17 17:00 60 03/11/17 16:18 73 16 160/94 (116) Labs: Laboratory Tests Test 03/12/17 05:29 03/12/17 14:42 Activated Partial Thromboplast Time 37.5 SEC (24.3-30.1) 41.6 SEC (24.3-30.1) Blood Urea Nitrogen 16 MG/DL (7-18) Creatinine 0.99 MG/DL (0.60-1.30) Random Glucose 89 MG/DL (74-106) Total Protein 6.5 GM/DL (6.4-8.2) Albumin 3.3 GM/DL (3.4-5.0) Calcium Level 8.1 MG/DL (8.5-10.1) Alkaline Phosphatase 67 U/L (45-117) Aspartate Amino Transf (AST/SGOT) 16 U/L (15-37) Alanine Aminotransferase (ALT/SGPT) 19 U/L (12-78) Total Bilirubin 0.6 MG/DL (0.2-1.0) Sodium Level 145 MEQ/L (136-145) Potassium Level 3.2 MEQ/L (3.5-5.1) Chloride Level 113 MEQ/L (98-107) Carbon Dioxide Level 23.2 MEQ/L (21.0-32.0) Anion Gap 9 MEQ/L (5-15) Estimat Glomerular Filtration Rate 73 ML/MIN (>89) Result Diagram: 03/11/17 1701 03/12/17 0529 Telemetry: NSR (1) Coronary artery disease Plan: for surgery in am (2) Hyperlipemia (3) Hypertension (4) Hx of thymectomy (5) Chest pain Problem Qualifiers (1) Chest pain: Qualified Codes: R07.9 - Chest pain, unspecified Shayla Thomas Mar 12, 2017 16:23
[2017-03-12 16:32] LABS: HEMOGLOBIN A1C 5.6 % (4.3-6.0)
[2017-03-12] MEDS: HEPARIN-D5W 25,000 U/250 ML 250 ML IV PRN (21:16)
[2017-03-13] VITALS (16 sets, daily range): BP systolic 106–146; BP diastolic 52–90; PULSE 50–90; RESP 15–18; TEMP 97.1–98.6; O2SAT 92–99
[2017-03-13] MEDS ORDERED: DEXMEDETOMIDINE HCL 200 MCG/2 ML VIAL ONE (06:35)
[2017-03-13] MEDS ORDERED: HEPARIN SODIUM - SQ 10,000 UNITS/ML VIAL ONE (06:47)
[2017-03-13] MEDS ORDERED: VANCOMYCIN HCL 1000 MG VIAL ONE (06:48)
[2017-03-13] MEDS ORDERED: ceFAZolin 2 GM PREMIX 50 ML ONE (06:48)
[2017-03-13 06:59] LABS: HEMOGLOBIN 12.6 GM/DL (13.0-17.0); MEAN CELL VOLUME 86.5 FL (80.0-100.0); MEAN CORPUSCULAR HEMOGLOBIN 30.3 PG (27.0-34.0); MEAN PLATELET VOLUME 8.5 FL (7.0-11.0); PLATELET COUNT 163 TH/MM3 (150-450); RED BLOOD COUNT 4.17 MIL/MM3 (4.50-5.90); RED CELL DISTRIBUTION WIDTH 14.4 % (11.6-17.2); WHITE BLOOD COUNT 6.1 TH/MM3 (4.0-11.0)
--- NOTE | 2017-03-13 08:53 | HHI.FF ---
Face to Face Verification Diagnosis: (1) S/P CABG (coronary artery bypass graft) (2) Chest pain (3) Coronary artery disease (4) Hyperlipemia (5) Hypertension (6) Hx of thymectomy Physical Therapy Order: Evaluate and Treat Home Health Nursing Order: Signs/symptoms of disease process Medication education-adverse effect Wound care and dressing changes Nursing assessment with vital signs Instructions: Heart and Vascular Surgery patients *Special attention to sternal dressing Mandatory frequency Assess and evaluation, 4 days in a row The next week 3X week 2 times a week for 4 weeks 1 time a week for 5 weeks Schedule Heart and Vascular patients for full 60 day certification period Initial visit Review Open Heart Surgery Discharge Instructions (Sternal precautions, Activity, Elastic hose, Incision care, Driving, Incentive spirometry, Smoking, [place], Work and other) Need Betadine to paint incision Medication reconciliation Importance of follow up care/ check on appointments Make calendar record temperature daily When to call [facility] [place] nurse, review instructions, phone list Incentive Spirometry, demonstration Visit 1- Begin discharge instruction for patient family and/ or caregiver using teach back method- Signs and symptoms of infection Disease characteristics Medicines and side effects Foods and nutrition/ appetite Infection control/ hand washing/ hygiene Visit 2- Continue teaching Discharge instructions- include additional information on smoking cessation , sternal dressing (sternal vac) Visit 3- Continue teaching- Cough and deep breathing, incision monitoring. Choose my plate Visit 4- Continue teaching- Discuss limitations Discuss how they are feeling Discuss progress toward goals Remaining visits- continue teaching and monitoring For any questions please call : Thursday 8am-5pm Heart & Vascular Surgery Office ( Dr. Gonzalez & Dr. Castellanos), After Hours / Nights (5pm -8am) Weekends and Holidays Please call [facility] ([facility]) Charge Nurse PREVENA Single Use Negative Wound Therapy System Caregiver Instruction Sheet 1. A Prevena dressing system was applied to the chest incision during surgery , to promote wound healing. It works via a suction device (negative pressure wound therapy) to remove low to moderate levels of exudate (drainage) and infectious materials. We recommend that the device stay in place for up to seven days, from day of surgery. 2. Day of Surgery__03/13/17 Day of Removal __03/21/17 3. The dressing should only be removed by a health manager career. Please arrange removal of device to coincide with Home Health visit and or with Nursing staff at Rehab 4. If skin reddening or irritation of skin occurs, or excessive drainage, please notify the Cardiovascular Surgeons office at [phone]. 5. Light showering is permissible; however the pump should be disconnected and placed in safe location, where it will not get wet. The dressing should not be exposed to direct spray or submerged in water. No bath tub / shower only. Ensure the end of the tubing attached to the dressing is facing down so that water does not enter the top of the tube. 6. To remove Prevena dressing: press purple button to turn off device / remove the suction. Then disconnect the tubing from the pump. The fixation strips should be stretched away from the skin and the dressing lifted at one corner and peeled back until it has been fully removed. 7. After removal, it is ok to shower daily using liquid dial soap and clean wash cloth, rinse and pat dry, and leave incision open to air dry. For any concerns regarding Prevena dressing, and or wounds, please contact Cheryle Marr, patient navigator at [phone] or notify the Cardiovascular Surgeons office at [phone]. Incentive spirometry Q1 hr x 10, while awake, also use acapella device hourly whole awake Sternal Breast Bone Precautions: NO pushing or pulling, ( pt must use sternal pillow to support chest with all activities and with coughing ( takes up to 3 months breast bone to heal ) Daily incision care: ok to shower daily, no tub bath. Wash all incisions with liquid dial soap, clean wash cloth to each site, rinse and pat dry. Observe for any signs of infection, such as drainage which is dark yellow, phillips, green or foul smelling. Immediately report to the surgeon any drainage from the chest incision, or legs, and for any abnormal drainage from the chest tube sites. Notify surgeon if any temp >101.5 degrees F. When specialty dressing removed/ or if you do not have one, continue to shower daily as above, then rinse and pat incision dry and paint with betadine daily x 5 days. Allow steri strips to fall off if you have any. Avoid lotions, creams, salves, oils, etc. for the first month Please see attached forms for additional instructions regarding post Open Heart specialty wound vacuum dressings. BERNARD or Prevena , Dressing to be removed by Nursing staff on _03/21/17 F/U appointment: as per DC instructions: PCP in 2 weeks, CV surgeon 2 weeks, L Tacker 3-4 weeks For any questions regarding incisions/ dressing / meds / post op care or above Symptoms, Thursday 8am-5pm Heart & Vascular Surgery Office ( Dr. Gonzalez & Dr. Castellanos), After Hours / Nights (5pm -8am) Weekends and Holidays Please call [facility]) Charge Nurse I have seen patient Joel Goldman on 03/13/17. My clinical findings support the need for the requested home health care services because: Deconditioned w/ increased weakness I certify that my clinical findings support that this patient is homebound because: Post-op weakness Shayla Thomas Mar 13, 2017 08:53
[2017-03-13] MEDS: ATORVASTATIN 20 MG TAB PO SCH (09:00)
[2017-03-13] MEDS: SODIUM CHLORIDE 0.9% FLUSH 10 ML FLUSH IV FLUSH SCH ×2 (09:00→20:54)
[2017-03-13] MEDS: METOPROLOL TARTRATE 25 MG TAB PO SCH ×2 (09:00→20:54)
[2017-03-13] MEDS ORDERED: POTASSIUM CHLORIDE 40 MEQ/20 ML VIAL ONE (09:42)
--- NOTE | 2017-03-13 11:34 | PD.OP ---
cc: Wilber Stewart MD; Aquiles Gonzalez MD Operative Report Date of Surgery: Mar 13, 2017 Preoperative Diagnosis: Postoperative Diagnosis: Procedure: 1. Urgent Off-pump Coronary Artery Bypass Grafting x 2 with Left Internal Mammary Artery (BERUMEN) to the Left Anterior Descending (LAD), reverse saphenous vein graft to the Posterior Descending Artery (RPDA) of the Right Coronary Artery 2. Lysis of Adhesions 3. Left Leg Endoscopic Vein [place] Surgeon: Aquiles Gonzalez Desizing Machine Operator(s): Екатерина Morley Operation and Findings: PREPROCEDURE DIAGNOSES 1. Two-Vessel Coronary Artery Disease. 2. Unstable Angina 3. Thymoma s/p Thymectomy POSTPROCEDURE DIAGNOSES Same SURGICAL PROCEDURE 1. Urgent Off-pump Coronary Artery Bypass Grafting x 2 with Left Internal Mammary Artery (BERUMEN) to the Left Anterior Descending (LAD), reverse saphenous vein graft to the Posterior Descending Artery (RPDA) of the Right Coronary Artery 2. Lysis of Adhesions 3. Left Leg Endoscopic Vein [place] SURGEON Aquiles Gonzalez MD PILER Ashlie Morley, JUVE [place] ANESTHESIA General endotracheal AIR TRAFFIC CONTROL SPECIALIST CYN Herring MD PREPARATION ChloraPrep. COUNTS Needle, sponge, and instrument counts were correct. DRAINS Two 32-Swazi mediastinal tubes. COMPLICATIONS None. INDICATIONS FOR PROCEDURE The patient is a 76-year-old presenting with CP and LAD, RCA disease. He is being brought to the operating room for urgent surgical revascularization therapy. PROCEDURE Patient was brought to the operating room and placed supine on the OR table. Following the induction of adequate general endotracheal anesthesia and placement of appropriate monitoring devices, the patient was prepped and draped in standard sterile fashion. Next, 2500 units of intravenous heparin was given. The left greater saphenous vein was harvested endoscopically from the thigh. This appeared to be a useable-caliber conduit. Simultaneously, a median sternotomy was performed. Given the previous thymectomy care was taken during the opening to carefully dissect free the underlying pericardium and avoid injury to the innominate vein which was adherent to the underside of the sternum. With tedious sharp and blunt dissection, the underlying structures were carefully freed and the sternum . The left internal mammary artery dissected free off the posterior sternal table. The patient was systemically heparinized and anticoagulation monitored by serial ACT measurements. The internal mammary artery had good pulsatile flow in it and was a decent-caliber conduit. The pericardium was then divided in the midline, the cradle created and targets analyzed. At this point, all anastomoses were performed in a beating-heart fashion using the Maquet stabilizing system. The left internal mammary artery was then anastomosed to the distal LAD (2 mm) in an end-to-side fashion using 7-0 Prolene. The RSVG segment was then anastomosed to the RPDA (2 mm) in an end-to-side fashion using a running 7-0 Prolene. The proximal anastomosis was then constructed to the ascending aorta in a running manner using 6-0 Prolene. All anastomotic sites were inspected and appeared to be hemostatic and patent. Protamine solution was given. Strict hemostasis was assured. The closure was undertaken. 2 chest tubes were placed. The pericardium was reapproximated in the midline. The sternum was approximated using sternal wires. The muscular and fascial layer were then closed in 3 layers. The endoscopic vein harvest site was closed in 2 layers. The patient tolerated the procedure well and was transferred to CVICU in critical but stable condition. Aquiles Gonzalez MD Mar 13, 2017 11:34
[2017-03-13] MEDS ORDERED: SODIUM BICARBONATE 8.4% SOLN 50 MEQ/50 ML VIAL IV PUSH PRN ×2 (12:00)
[2017-03-13] MEDS ORDERED: LACTATED RINGER'S 1000 ML INJ 500 ML IV PRN (12:00)
[2017-03-13] MEDS ORDERED: CALCIUM CHLORIDE 10% 1 GRAM/10 ML VIAL IV PUSH PRN (12:00)
[2017-03-13] MEDS ORDERED: DEXMEDETOMIDINE HCL 200 MCG/2 ML VIAL IV ONE (12:00)
[2017-03-13] MEDS ORDERED: ePHEDrine/NS 25 MG/5 ML SYRINGE IV ONE ×2 (12:00)
[2017-03-13] MEDS ORDERED: SODIUM CHLORIDE 0.9% INJ 100 ML IV ONE (12:00)
[2017-03-13] MEDS ORDERED: LIDOCAINE HCL 1% PF 5 ML SYRINGE OTHER ONE (12:00)
[2017-03-13] MEDS ORDERED: SODIUM CHLORIDE 0.9% FLUSH 10 ML FLUSH IV FLUSH PRN (12:00)
[2017-03-13] MEDS ORDERED: MAGNESIUM SULFATE 1 GM/2 ML VIAL IV ONE (12:00)
[2017-03-13] MEDS ORDERED: RESP: RACEPINEPHRINE 2.25% 0.5 ML NEB NEB PRN (12:00)
[2017-03-13] MEDS ORDERED: NORMOSOL R INJ 1,000 ML IV ONE (12:00)
[2017-03-13] MEDS ORDERED: NITROGLYCERIN 50 MG/DEXTROSE 5% SOLN 250 ML BTL IV ONE (12:00)
[2017-03-13] MEDS ORDERED: POTASSIUM CHLORIDE 20 MEQ CONTROLLED RELEASE TAB PO PRN ×2 (12:00)
[2017-03-13] MEDS ORDERED: VECURONIUM BROMIDE 20 MG VIAL IV ONE (12:00)
[2017-03-13] MEDS ORDERED: POTASSIUM CHLOR 20 MEQ PREMIX 100 ML IV PRN ×2 (12:00)
[2017-03-13] MEDS ORDERED: SODIUM CHLOR 0.9% (EXCEL) INJ 500 ML IV ONE (12:00)
[2017-03-13] MEDS ORDERED: PHENYLEPH/NS 1000 MCG/10 ML SYR IV ONE ×2 (12:00)
[2017-03-13] MEDS ORDERED: ONDANSETRON HCL 4 MG/2 ML VIAL IV PUSH PRN (12:00)
[2017-03-13] MEDS ORDERED: LACTATED RINGER'S 1000 ML INJ 1,000 ML IV ONE (12:00)
[2017-03-13] MEDS ORDERED: PROTAMINE SULFATE 250 MG/25 ML VIAL IV ONE (12:00)
[2017-03-13] MEDS ORDERED: DEXTROSE 50% IN WATER 50 ML VIAL(D50) IV PUSH PRN (12:00)
[2017-03-13] MEDS ORDERED: HEPARIN SODIUM - SQ 10,000 UNITS/ML VIAL SQ ONE (12:00)
[2017-03-13] MEDS ORDERED: AMINOCAPROIC ACID INJ 250 MG/ML 20 ML VIAL IV ONE (12:00)
[2017-03-13] MEDS ORDERED: CALCIUM CHLORIDE INJ 1 GM in SODIUM CHLORIDE 0.9% INJ 100 ML IV PRN (12:00)
[2017-03-13] MEDS ORDERED: hydrALAZINE HCL 20 MG/ML VIAL IV PUSH PRN (12:00)
[2017-03-13] MEDS ORDERED: fentaNYL CITRATE 1000 MCG/20 ML VIAL ONE (12:02)
[2017-03-13] MEDS ORDERED: MIDAZOLAM HCL 2 MG/2 ML VIAL ONE ×2 (12:02)
[2017-03-13] MEDS ORDERED: CLEVIDIPINE INJ 50 ML IV PRN (12:15)
[2017-03-13] MEDS ORDERED: ACETAMINOPHEN 650 MG SUPP RECTAL PRN (12:15)
[2017-03-13] MEDS ORDERED: MAGNESIUM SULFATE INJ 2 GM in SODIUM CHLORIDE 0.9% INJ 100 ML IV PRN ×4 (12:15)
[2017-03-13] MEDS ORDERED: RESP: ALBUTEROL 2.5 MG/IPRATROPIUM 0.5 MG NEB (PRN) NEB (12:15)
[2017-03-13] MEDS ORDERED: INSULIN REGULAR (IV INFUSION) 100 UNITS in SODIUM CHLORIDE 0.9% INJ 99 ML IV PRN (12:15)
--- NOTE | 2017-03-13 12:28 | RADRPT ---
EXAM DATE/TIME: 03/13/2017 11:53 [facility] COMPARISON: No previous studies available for comparison. INDICATIONS : Post op CABG. MEDICAL HISTORY : Myocardial infarction. Hypertension. Prostate cancer. SURGICAL HISTORY : CABG. Cardiac catheterization. Prostatectomy. ENCOUNTER: Subsequent ACUITY: 1 day PAIN SCORE: Non-responsive. LOCATION: chest FINDINGS: ET tube result brain left chest tube in good position. There is no pneumothorax. Mild compensated c ardiomegaly. Mild prominence of mediastinum. CONCLUSION: Support apparatus in good position. Postoperative chest as above. Rick Calvo MD FACR on March 13, 2017 at 12:25 Board Certified Radiologist. This report was verified electronically.
[2017-03-13] MEDS ORDERED: DOBUTamine PREMIX DRIP 250 ML IV PRN (12:30)
[2017-03-13] MEDS ORDERED: ACETAMINOPHEN/HYDROcodone 325 MG/5 MG TAB PO PRN (12:30)
[2017-03-13] MEDS ORDERED: NITROGLYCERIN-D5W 50 MG/250 ML 250 ML IV PRN (12:30)
[2017-03-13] MEDS ORDERED: DOPamine INJ PREMIX 500 ML IV PRN (12:30)
[2017-03-13] MEDS ORDERED: MORPHINE SULFATE 4 MG/ML INJ IV PUSH PRN (12:30)
[2017-03-13] MEDS ORDERED: MEPERIDINE HCL 25 MG/ML VIAL IV PUSH PRN (12:30)
[2017-03-13] MEDS: ALBUMIN 5% INJ 250 ML IV PRN (12:55)
[2017-03-13] MEDS: ACETAMINOPHEN 1000 MG/100 ML 100 ML IV SCH ×3 (12:55→23:36)
[2017-03-13] MEDS ORDERED: PHENYLEPHRINE INJ 40 MG in DEXTROSE 5% IN WATE 500 ML INJ 496 ML IV PRN ×2 (13:00)
[2017-03-13] MEDS ORDERED: Post-op Orders (for Pharmacy) OTHER ONE (13:00)
--- NOTE | 2017-03-13 14:49 | PD.CARD.PN ---
Subjective Subjective Remarks POD 0. patient is A and O, hemodynamically stable, on venti mask, No acute complaints. (Edilia Taylor) Objective Medications Current Medications Medications (Trade) Dose Ordered Sig/Antonia Route Start Time Stop Time Status Last Admin (Lopressor) 25 mg Q12HR PO 03/11/17 11:00 03/12/17 21:14 (Lipitor) 20 mg DAILY PO 03/11/17 11:00 03/12/17 09:31 (NS Flush) 2 ml BID IV FLUSH 03/13/17 21:00 (NS Flush) 2 ml UNSCH PRN IV FLUSH 03/13/17 12:00 Nitroglycerin/ Dextrose 250 ml @ 1.5 mls/hr TITRATE PRN IV 03/13/17 12:30 Dobutamine HCl/ Dextrose 250 ml @ 13.785 mls/ hr Q18H9M PRN IV 03/13/17 12:30 Dopamine HCl/ Dextrose 500 ml @ 10.339 mls/ hr TITRATE PRN IV 03/13/17 12:30 Phenylephrine HCl 40 mg/Dextrose 500 ml @ 30 mls/hr TITRATE PRN IV 03/13/17 13:00 Clevidipine 50 ml @ 2 mls/hr TITRATE PRN IV 03/13/17 12:15 Albumin Human 250 ml @ 250 mls/hr UNSCH PRN IV 03/13/17 12:15 03/13/17 12:55 Lactated Ringer's 500 ml @ 500 mls/hr Q1H PRN IV 03/13/17 12:00 (Aspirin Chew) 81 mg DAILY PO 03/14/17 09:00 (Plavix) 75 mg DAILY PO 03/14/17 09:00 (Protonix) 40 mg DAILY@06 PO 03/14/17 06:00 (Cordarone) 400 mg Q12HR PO 03/13/17 21:00 (Tylenol) 650 mg Q4H PRN PO 03/13/17 12:15 (Tylenol Supp) 650 mg Q4H PRN RECTAL 03/13/17 12:15 Acetaminophen 100 ml @ 400 mls/hr Q6H IV 03/13/17 12:15 03/14/17 06:29 03/13/17 12:55 (Morphine Inj) 1 mg Q10M PRN IV PUSH 03/13/17 12:30 (Demerol Inj) 12.5 mg Q4H PRN IV PUSH 03/13/17 12:30 ([place] 5-325 Mg) 1 tab Q3H PRN PO 03/13/17 12:30 (Toradol Inj) 15 mg Q6H PRN IV PUSH 03/13/17 12:30 03/15/17 12:29 (fentaNYL INJ) 25 mcg Q1H PRN IV PUSH 03/13/17 12:00 03/13/17 14:29 (Zofran Inj) 4 mg Q6H PRN IV PUSH 03/13/17 12:00 (Apresoline Inj) 10 mg Q4H PRN IV PUSH 03/13/17 12:00 (Lopressor Inj) 2.5 mg Q1H PRN IV PUSH 03/13/17 12:30 Potassium Chloride 100 ml @ 50 mls/hr UNSCH PRN IV 03/13/17 12:00 Potassium Chloride 100 ml @ 50 mls/hr UNSCH PRN IV 03/13/17 12:00 Potassium Chloride 100 ml @ 50 mls/hr UNSCH PRN IV 03/13/17 12:00 (KCl) 20 meq UNSCH PRN PO 03/13/17 12:00 (KCl) 40 meq UNSCH PRN PO 03/13/17 12:00 Magnesium Sulfate 2 gm/Sodium Chloride 104 ml @ 100 mls/hr UNSCH PRN IV 03/13/17 12:15 Magnesium Sulfate 2 gm/Sodium Chloride 104 ml @ 50 mls/hr UNSCH PRN IV 03/13/17 12:15 (Calcium Chloride Inj) 0.5 gm UNSCH PRN IV PUSH 03/13/17 12:00 Insulin Human Regular 100 units/ Sodium Chloride 100 ml @ 3 mls/hr TITRATE PRN IV 03/13/17 12:15 (D50w (Vial) Inj) 50 ml UNSCH PRN IV PUSH 03/13/17 12:00 Cefazolin Sodium/ Dextrose 50 ml @ 100 mls/hr Q8H IV 03/13/17 16:00 03/15/17 00:29 (Sodium Bicarbonate 8.4% Inj) 50 meq UNSCH PRN IV PUSH 03/13/17 12:00 (Sodium Bicarbonate 8.4% Inj) 100 meq UNSCH PRN IV PUSH 03/13/17 12:00 03/13/17 12:54 (Duoneb Neb) 1 ampule Q6HR NEB NEB 03/13/17 16:00 (Duoneb Neb) 1 ampule Q2HR NEB PRN NEB 03/13/17 12:15 (Racepinephrine 2.25% Neb) 0.5 ml UNSCH X1 PRN NEB 03/13/17 12:00 03/18/17 11:59 Vital Signs / I&O Vital Signs Date Time Temp Pulse Resp B/P (MAP) Pulse Ox O2 Delivery O2 Flow Rate FiO2 03/13/17 13:21 96 Venturi Mask 35 03/13/17 13:21 95 Venturi Mask 35 03/13/17 13:12 96 Venturi Mask 35.00 03/13/17 12:03 99 80 03/13/17 12:00 60 03/13/17 12:00 64 03/13/17 12:00 97.6 71 15 106/70 (82) 92 119/62 (81) 03/13/17 07:09 98.6 60 17 92 03/13/17 05:00 64 03/13/17 04:00 97.1 63 16 140/89 (106) 94 03/13/17 04:00 50 03/13/17 03:00 56 03/13/17 02:00 54 03/13/17 01:00 70 03/13/17 00:00 97.4 61 16 146/90 (108) 95 03/13/17 00:00 74 03/12/17 23:00 72 03/12/17 22:00 82 03/12/17 21:00 76 03/12/17 20:00 97.7 75 16 146/91 (109) 95 03/12/17 20:00 74 03/12/17 20:00 75 146/91 03/12/17 19:00 72 03/12/17 18:00 56 03/12/17 17:00 88 03/12/17 16:00 66 03/12/17 15:00 98.0 61 16 142/81 (101) 95 03/12/17 15:00 67 I/O 03/12/17 03/12/17 03/12/17 03/13/17 03/13/17 03/13/17 07:00 15:00 23:00 07:00 15:00 23:00 Intake Total 480 ml 1150 ml 466 ml 3460 ml Output Total 300 ml 800 ml 600 ml 1150 ml Balance 180 ml 350 ml -134 ml 2310 ml Intake Oral 480 ml 900 ml 360 ml IV Total 250 ml 106 ml 460 ml Other 3000 ml Output Urine Total 300 ml 800 ml 600 ml 650 ml Estimated Blood Loss 500 ml # Voids 1 # Bowel Movements 1 0 Physical Exam GENERAL: Young appearing 76 year old seen in CVICU, NAD SKIN: Warm and dry. HEAD: Normocephalic. Mild pallor EYES: No scleral icterus. No injection or drainage. NECK: Right IJ central line CARDIOVASCULAR: Regular rate and rhythm, sternal dressing RESPIRATORY: No accessory muscle use. Venti mask MUSCULOSKELETAL: No cyanosis, or edema. BLE suzanne wraps Laboratory Laboratory Tests Test 03/12/17 19:58 03/13/17 05:25 Activated Partial Thromboplast Time 40.3 SEC White Blood Count 6.1 TH/MM3 Red Blood Count 4.17 MIL/MM3 Hemoglobin 12.6 GM/DL Hematocrit 36.0 % Mean Corpuscular Volume 86.5 FL Mean Corpuscular Hemoglobin 30.3 PG Mean Corpuscular Hemoglobin Concent 35.0 % Red Cell Distribution Width 14.4 % Platelet Count 163 TH/MM3 Mean Platelet Volume 8.5 FL Imaging Last 24 hours Impressions Chest X-Ray 03/13/17 0000 Signed Impressions: Service Date/Time: Monday, March 13, 2017 11:53 - CONCLUSION: Support apparatus in good position. Postoperative chest as above. Rick Calvo MD FACR (Edilia Taylor) Assessment and Plan Problem List: (1) Coronary artery disease ICD Codes: I25.10 - Atherosclerotic heart disease of [place] coronary artery without angina pectoris (2) Hyperlipemia ICD Codes: E78.5 - Hyperlipidemia, unspecified (3) Hypertension ICD Codes: I10 - Essential (primary) hypertension (4) Hx of thymectomy ICD Codes: Z98.890 - Other specified postprocedural states; Z90.89 - Acquired absence of other organs (5) Chest pain ICD Codes: R07.9 - Chest pain, unspecified Status: Acute Assessment and Plan 03/13/2017 Urgent Off-pump Coronary Artery Bypass Grafting x 2 with Left Internal Mammary Artery (BERUMEN) to the Left Anterior Descending (LAD), reverse saphenous vein graft to the Posterior Descending Artery (RPDA) of the Right Coronary Artery PLAN: CV surgery will manage acute post op We will follow up on Thursday The patient was seen and evaluated by Dr Stewart who completed face to face encounter and physical exam and participated in evaluation and management. (Edilia Taylor) Assessment and Plan The exam, history, and the medical decision-making described in the above note were completed with the assistance of the mid-level provider. I reviewed and agree with the findings presented. I attest that I had a [id number] encounter with the patient on the same day, and personally performed and documented my assessment and findings in the medical record. Doing well post op (Wilber Stewart MD) Problem Qualifiers (1) Chest pain: Qualified Codes: R07.9 - Chest pain, unspecified Edilia Taylor Mar 13, 2017 14:49 Wilber Stewart MD Mar 13, 2017 15:16
[2017-03-13] MEDS: RESP: ALBUTEROL 2.5 MG/IPRATROPIUM 0.5 MG NEB (SCH) NEB ×2 (16:06→20:46)
[2017-03-13] MEDS: ceFAZolin 2 GM PREMIX 50 ML IV SCH ×2 (16:14→23:36)
[2017-03-13] MEDS: KETOROLAC TROMETHAMINE 30 MG/ML (IVP) VIAL IV PUSH PRN (16:43)
[2017-03-13] MEDS: CALCIUM CHLORIDE INJ 1 GM in SODIUM CHLORIDE 0.9% INJ 100 ML IV PRN (20:54)
[2017-03-13] MEDS: AMIODARONE 200 MG TAB PO SCH (20:54)
[2017-03-13] MEDS: POTASSIUM CHLOR 20 MEQ PREMIX 100 ML IV PRN ×2 (20:55→22:43)
[2017-03-13] MEDS: METOPROLOL TARTRATE 5 MG/5 ML VIAL IV PUSH PRN ×2 (21:30→22:30)
[2017-03-13] MEDS ORDERED: FUROSEMIDE 40 MG/4 ML VIAL IV PUSH STA (23:39)
[2017-03-14] VITALS (9 sets, daily range): BP systolic 104–130; BP diastolic 46–80; PULSE 79–152; RESP 17–30; TEMP 97.4–100.1; O2SAT 94–99
[2017-03-14] MEDS: KETOROLAC TROMETHAMINE 30 MG/ML (IVP) VIAL IV PUSH PRN ×2 (00:11→21:56)
[2017-03-14] MEDS: ALBUMIN 5% INJ 250 ML IV PRN (01:35)
[2017-03-14] MEDS: RESP: ALBUTEROL 2.5 MG/IPRATROPIUM 0.5 MG NEB (SCH) NEB ×4 (03:09→19:54)
[2017-03-14] MEDS: CALCIUM CHLORIDE INJ 1 GM in SODIUM CHLORIDE 0.9% INJ 100 ML IV PRN (04:16)
--- NOTE | 2017-03-14 04:35 | RADRPT ---
EXAM DATE/TIME: 03/14/2017 03:43 [facility] COMPARISON: CHEST SINGLE AP, March 13, 2017, 11:53. INDICATIONS : Shortness of breath, possible pneumothorax. MEDICAL HISTORY : Myocardial infarction. Hypertension Carcinoma, prostatic. SURGICAL HISTORY : CABG. Prostatectomy. ENCOUNTER: Subsequent ACUITY: 2 days PAIN SCORE: Non-responsive. LOCATION: Bilateral chest FINDINGS: The patient is status post sternotomy. The ET tube and NG tube have been removed. There is a left nithin st tube and mediastinal drain in place. There is a left subclavian line in place. A pneumothorax is n ot seen. There is mild increased density at the left base. CONCLUSION: 1. Tubes and lines in good position. 2. Mild atelectasis or consolidation at the left base. Carlos Reveles MD on March 14, 2017 at 4:31 Board Certified Radiologist. This report was verified electronically.
[2017-03-14 04:53] LABS: HEMATOCRIT 28.9 % (39.0-51.0); HEMOGLOBIN 10.1 GM/DL (13.0-17.0); MEAN CELL VOLUME 86.6 FL (80.0-100.0); MEAN CORPUSCULAR HEMOGLOBIN 30.3 PG (27.0-34.0); MEAN PLATELET VOLUME 8.1 FL (7.0-11.0); PLATELET COUNT 152 TH/MM3 (150-450); RED BLOOD COUNT 3.34 MIL/MM3 (4.50-5.90); RED CELL DISTRIBUTION WIDTH 14.3 % (11.6-17.2); WHITE BLOOD COUNT 9.5 TH/MM3 (4.0-11.0)
[2017-03-14 05:12] LABS: BICARBONATE 20.6 MEQ/L (21.0-32.0); CALCIUM 8.8 MG/DL (8.5-10.1); CREATININE 1.07 MG/DL (0.60-1.30); MAGNESIUM 2.1 MG/DL (1.5-2.5)
[2017-03-14] MEDS: PANTOPRAZOLE SOD 40 MG DELAYED RELEASE TAB PO SCH (06:00)
[2017-03-14] MEDS: ACETAMINOPHEN 1000 MG/100 ML 100 ML IV SCH (06:33)
[2017-03-14] MEDS: ceFAZolin 2 GM PREMIX 50 ML IV SCH ×3 (08:20→23:13)
--- NOTE | 2017-03-14 09:41 | PD.CAR.PN ---
CVT Progress Note CVT: POD #: 1 Subjective/Hospital Course: 76-year-old male. Patient of Dr. Faraz Del Real, Dr. Stewart who recently had a stress test back in October of 2015 for left-sided chest discomfort, essentially negative. But over the past couple of days he started having a different kind of pain. This was a burning type pain that went down his arm. [place] It happened a few times over the last few weeks and yesterday was severe enough to come into the emergency department. Troponins were negative, however, due to his history or risk factors he underwent cardiac catheterization by Dr. Stewart today which showed an ejection fraction of 60%, proximal LAD 80%, mid distal LAD had two areas of 80% stenosis. The circ had 50% . Right coronary artery had 95% stenosis. We were consulted to evaluate for coronary artery bypass grafting. PAST MEDICAL HISTORY: Hyperlipidemia, Hypertension, Malignant thymoma. PAST SURGICAL HISTORY: Thymectomy with a left thoracotomy approach three years ago at [facility] where he had also radiation for six weeks post, Prostatectomy. 03/12 pt had mild chest pain this am 02/25, Nitro gtt started by cardiology pt now pain free for surgery in am 03/04/17 Doing well s/p CABG No complaints this AM Objective: Vital Signs Date Time Temp Pulse Resp B/P (MAP) Pulse Ox O2 Delivery O2 Flow Rate FiO2 03/14/17 07:00 95 Nasal Cannula 6.00 03/14/17 07:00 99.8 92 18 115/58 (77) 95 110/46 (67) 03/14/17 03:00 85 03/14/17 03:00 98.5 85 19 104/53 (70) 98 106/65 (79) 03/14/17 01:14 18 03/13/17 23:00 98.3 90 18 137/80 (99) 95 125/87 (100) 03/13/17 23:00 85 03/13/17 22:38 19 03/13/17 22:25 97 Nasal Cannula 6.00 03/13/17 20:46 94 21 03/13/17 20:03 18 03/13/17 19:00 78 03/13/17 19:00 98.2 90 18 123/72 (89) 97 137/52 (80) 03/13/17 19:00 95 Room Air 03/13/17 16:06 97 21 03/13/17 15:00 97.6 77 18 108/71 (83) 93 123/56 (78) 03/13/17 15:00 69 03/13/17 13:21 96 Venturi Mask 35 03/13/17 13:21 95 Venturi Mask 35 03/13/17 13:12 96 Venturi Mask 35.00 03/13/17 12:03 99 80 03/13/17 12:00 60 03/13/17 12:00 64 03/13/17 12:00 97.6 71 15 106/70 (82) 92 119/62 (81) Labs: Laboratory Tests Test 03/14/17 04:25 White Blood Count 9.5 TH/MM3 (4.0-11.0) Red Blood Count 3.34 MIL/MM3 (4.50-5.90) Hemoglobin 10.1 GM/DL (13.0-17.0) Hematocrit 28.9 % (39.0-51.0) Mean Corpuscular Volume 86.6 FL (80.0-100.0) Mean Corpuscular Hemoglobin 30.3 PG (27.0-34.0) Mean Corpuscular Hemoglobin Concent 35.0 % (32.0-36.0) Red Cell Distribution Width 14.3 % (11.6-17.2) Platelet Count 152 TH/MM3 (150-450) Mean Platelet Volume 8.1 FL (7.0-11.0) Blood Urea Nitrogen 14 MG/DL (7-18) Creatinine 1.07 MG/DL (0.60-1.30) Random Glucose 119 MG/DL (74-106) Calcium Level 8.8 MG/DL (8.5-10.1) Magnesium Level 2.1 MG/DL (1.5-2.5) Sodium Level 142 MEQ/L (136-145) Potassium Level 4.1 MEQ/L (3.5-5.1) Chloride Level 113 MEQ/L (98-107) Carbon Dioxide Level 20.6 MEQ/L (21.0-32.0) Anion Gap 8 MEQ/L (5-15) Estimat Glomerular Filtration Rate 67 ML/MIN (>89) Result Diagram: 03/14/1742403/14/17424 Imaging: Last 24 hours Impressions Chest X-Ray 03/14/17 0500 Signed Impressions: Service Date/Time: Tuesday, March 14, 2017 03:43 - CONCLUSION: 1. Tubes and lines in good position. 2. Mild atelectasis or consolidation at the left base. Carlos Reveles MD Cardiovascular: RRR Telemetry: NSR Pulmonary: Few crackles bilat GI/: Decreased BS, soft, Nt Incision: dry and intact CT: 290ml/12hrs Plan: Transfer to stepdown Convert from insulin drip Advance diet Encourage ambulation/up to chair PT/OT BB, plavix, ASA, statin on board Continue chest tubes (1) Coronary artery disease Plan: for surgery in am (2) Hyperlipemia (3) Hypertension (4) Hx of thymectomy (5) Chest pain Problem Qualifiers (1) Chest pain: Qualified Codes: R07.9 - Chest pain, unspecified Brandy Castellanos MD Mar 14, 2017 09:41
[2017-03-14] MEDS ORDERED: DEXTROSE 50% IN WATER 50 ML VIAL(D50) IV PUSH PRN (09:45)
[2017-03-14] MEDS ORDERED: GLUCAGON 1 MG/ML VIAL OTHER PRN (09:45)
[2017-03-14] MEDS ORDERED: BISACODYL 10 MG SUPP RECTAL PRN (09:45)
[2017-03-14] MEDS: INSULIN ASPART SUPPLEMENTAL SCALE SQ SCH ×4 (10:00→22:07)
[2017-03-14] MEDS: CLOPIDOGREL 75 MG TAB PO SCH (10:05)
[2017-03-14] MEDS: AMIODARONE 200 MG TAB PO SCH (10:05)
[2017-03-14] MEDS: ATORVASTATIN 20 MG TAB PO SCH (10:05)
[2017-03-14] MEDS: ASPIRIN 81 MG CHEW TAB PO SCH (10:06)
[2017-03-14] MEDS: METOPROLOL TARTRATE 25 MG TAB PO SCH ×2 (10:06→21:55)
[2017-03-14] MEDS: SODIUM CHLORIDE 0.9% FLUSH 10 ML FLUSH IV FLUSH SCH ×2 (10:06→21:56)
[2017-03-14] MEDS ORDERED: INSULIN DETEMIR 100 UNITS/ML VIAL SQ ONE (10:30)
--- NOTE | 2017-03-14 13:59 | EKG ---
Date Performed: 03/14/2017 Time Performed: 03:55:46 PTAGE: 76 years EKG: Probable accelerated junctional rhythm Inferior infarct - age undetermined Lateral T wave c hanges may be due to myocardial ischemia Abnormal ECG PREVIOUS TRACING : 03/11/[address] elevation in lead V2 new since prior tracing. Cannot rul e out ischemia. Clinical correlation recommended. DOCTOR: Joel Garcia Interpretating Date/Time 03/14/2017 13:57:56
[2017-03-14] MEDS ORDERED: AMIODARONE INJ 450 MG in D5W (EXCEL BAG) INJ 241 ML IV PRN (14:15)
[2017-03-14] MEDS ORDERED: AMIODARONE 150 MG/D5W 97 ML BOLUS 10 MINUTES IV ONE ×2 (14:15)
[2017-03-14] MEDS: AMIODARONE INJ 450 MG in SODIUM CHLOR 0.9% (EXCEL) INJ 250 ML IV PRN (14:36)
[2017-03-14] MEDS ORDERED: METOPROLOL TARTRATE 5 MG/5 ML VIAL IV PUSH ONE (17:30)
[2017-03-14] MEDS: DOCUSATE SODIUM 100 MG CAP PO SCH (21:54)
[2017-03-14] MEDS: SENNOSIDES 8.6 MG TAB PO SCH (21:55)
[2017-03-14] MEDS: ACETAMINOPHEN 325 MG TAB PO PRN (21:55)
[2017-03-15] VITALS (8 sets, daily range): BP systolic 104–137; BP diastolic 68–87; PULSE 67–128; RESP 18–28; TEMP 97.8–99.3; O2SAT 90–97
[2017-03-15] MEDS: AMIODARONE INJ 450 MG in SODIUM CHLOR 0.9% (EXCEL) INJ 250 ML IV PRN (00:02)
[2017-03-15] MEDS: INSULIN ASPART SUPPLEMENTAL SCALE SQ SCH ×6 (02:00→22:00)
[2017-03-15 04:11] LABS: AUTOMATED NEUTROPHIL # 8.3 TH/MM3 (1.8-7.7); BASOPHIL % 0.1 % (0.0-2.0); HEMATOCRIT 27.2 % (39.0-51.0); HEMOGLOBIN 9.6 GM/DL (13.0-17.0); LYMPH % 8.4 % (9.0-44.0); LYMPHOCYTE # 0.8 TH/MM3 (1.0-4.8); MEAN CELL VOLUME 87.2 FL (80.0-100.0); MEAN CORPUSCULAR HEMOGLOBIN 30.7 PG (27.0-34.0); MEAN CORPUSCULAR HGB CONC 35.2 % (32.0-36.0); MEAN PLATELET VOLUME 8.4 FL (7.0-11.0); MONO % 8.4 % (0.0-8.0); MONOCYTE # 0.8 TH/MM3 (0-0.9); NEUT % 83.1 % (16.0-70.0); PLATELET COUNT 149 TH/MM3 (150-450); RED BLOOD COUNT 3.12 MIL/MM3 (4.50-5.90); RED CELL DISTRIBUTION WIDTH 14.4 % (11.6-17.2)
[2017-03-15 04:39] LABS: BICARBONATE 22.6 MEQ/L (21.0-32.0); CALCIUM 8.1 MG/DL (8.5-10.1); CREATININE 1.38 MG/DL (0.60-1.30); MAGNESIUM 2.4 MG/DL (1.5-2.5)
[2017-03-15] MEDS: PANTOPRAZOLE SOD 40 MG DELAYED RELEASE TAB PO SCH (06:47)
[2017-03-15] MEDS: RESP: ALBUTEROL 2.5 MG/IPRATROPIUM 0.5 MG NEB (SCH) NEB ×3 (07:10→20:00)
--- NOTE | 2017-03-15 09:13 | PD.CAR.PN ---
CVT Progress Note CVT: POD #: 2 Subjective/Hospital Course: 76-year-old male. Patient of Dr. Faraz Del Real, Dr. Stewart who recently had a stress test back in October of 2015 for left-sided chest discomfort, essentially negative. But over the past couple of days he started having a different kind of pain. This was a burning type pain that went down his arm. [place] It happened a few times over the last few weeks and yesterday was severe enough to come into the emergency department. Troponins were negative, however, due to his history or risk factors he underwent cardiac catheterization by Dr. Stewart today which showed an ejection fraction of 60%, proximal LAD 80%, mid distal LAD had two areas of 80% stenosis. The circ had 50% . Right coronary artery had 95% stenosis. We were consulted to evaluate for coronary artery bypass grafting. PAST MEDICAL HISTORY: Hyperlipidemia, Hypertension, Malignant thymoma. PAST SURGICAL HISTORY: Thymectomy with a left thoracotomy approach three years ago at [facility] where he had also radiation for six weeks post, Prostatectomy. 03/12 pt had mild chest pain this am 02/25, Nitro gtt started by cardiology pt now pain free for surgery in am 03/14/17 Doing well s/p CABG No complaints this AM 03/15/17 AFIB yesterday, converted with amiodarone Objective: Vital Signs Date Time Temp Pulse Resp B/P (MAP) Pulse Ox O2 Delivery O2 Flow Rate FiO2 03/15/17 07:10 97 Simple Mask 8.00 03/15/17 07:00 98.6 75 28 125/75 (92) 96 03/15/17 07:00 96 Simple Mask 8.00 Non-Rebreather 03/15/17 07:00 75 03/15/17 03:00 98.5 67 18 104/68 (80) 92 03/15/17 03:00 67 03/15/17 00:02 80 112/65 03/14/17 23:42 94 Simple Mask 7.00 03/14/17 23:00 79 03/14/17 23:00 99.7 79 23 112/65 (81) 95 03/14/17 22:51 20 03/14/17 22:51 20 03/14/17 20:00 100.1 84 25 127/75 (92) 99 03/14/17 20:00 99 Non-Rebreather 100 03/14/17 20:00 99 03/14/17 19:54 98 Non-Rebreather 15.00 100 03/14/17 17:00 141 136/84 03/14/17 15:00 92 03/14/17 15:00 97.4 152 30 130/80 (97) 97 Arterial Line 03/14/17 14:36 170 127/80 03/14/17 14:26 155 127/80 03/14/17 11:00 98.4 83 17 130/76 (94) 94 123/60 (81) 03/14/17 11:00 92 03/14/17 10:16 95 Nasal Cannula 6.00 Labs: Laboratory Tests Test 03/15/17 03:45 White Blood Count 10.0 TH/MM3 (4.0-11.0) Red Blood Count 3.12 MIL/MM3 (4.50-5.90) Hemoglobin 9.6 GM/DL (13.0-17.0) Hematocrit 27.2 % (39.0-51.0) Mean Corpuscular Volume 87.2 FL (80.0-100.0) Mean Corpuscular Hemoglobin 30.7 PG (27.0-34.0) Mean Corpuscular Hemoglobin Concent 35.2 % (32.0-36.0) Red Cell Distribution Width 14.4 % (11.6-17.2) Platelet Count 149 TH/MM3 (150-450) Mean Platelet Volume 8.4 FL (7.0-11.0) Neutrophils (%) (Auto) 83.1 % (16.0-70.0) Lymphocytes (%) (Auto) 8.4 % (9.0-44.0) Monocytes (%) (Auto) 8.4 % (0.0-8.0) Eosinophils (%) (Auto) 0.0 % (0.0-4.0) Basophils (%) (Auto) 0.1 % (0.0-2.0) Neutrophils # (Auto) 8.3 TH/MM3 (1.8-7.7) Lymphocytes # (Auto) 0.8 TH/MM3 (1.0-4.8) Monocytes # (Auto) 0.8 TH/MM3 (0-0.9) Eosinophils # (Auto) 0.0 TH/MM3 (0-0.4) Basophils # (Auto) 0.0 TH/MM3 (0-0.2) CBC Comment DIFF FINAL Differential Comment Blood Urea Nitrogen 20 MG/DL (7-18) Creatinine 1.38 MG/DL (0.60-1.30) Random Glucose 104 MG/DL (74-106) Calcium Level 8.1 MG/DL (8.5-10.1) Magnesium Level 2.4 MG/DL (1.5-2.5) Sodium Level 142 MEQ/L (136-145) Potassium Level 3.8 MEQ/L (3.5-5.1) Chloride Level 112 MEQ/L (98-107) Carbon Dioxide Level 22.6 MEQ/L (21.0-32.0) Anion Gap 7 MEQ/L (5-15) Estimat Glomerular Filtration Rate 50 ML/MIN (>89) Result Diagram: 03/15/1734403/15/17344 Cardiovascular: RRR Telemetry: NSR Pulmonary: CTA GI/: NABS Incision: dry and intact CT: 100ml/12hrs Plan: Remove chest tubes D/C Toradol - Cr slightly up Encourage ambulation, up to chair No diuretic today BMP in AM (1) Coronary artery disease Plan: for surgery in am (2) Hyperlipemia (3) Hypertension (4) Hx of thymectomy (5) Chest pain Problem Qualifiers (1) Chest pain: Qualified Codes: R07.9 - Chest pain, unspecified Brandy Castellanos MD Mar 15, 2017 09:13
[2017-03-15] MEDS: DOCUSATE SODIUM 100 MG CAP PO SCH ×2 (09:20→20:49)
[2017-03-15] MEDS: CLOPIDOGREL 75 MG TAB PO SCH (09:20)
[2017-03-15] MEDS: MAGNESIUM HYDROXIDE SUSP 30 ML CUP PO SCH (09:20)
[2017-03-15] MEDS: POLYETHYLENE GLYCOL 17 GM PKG PO SCH (09:21)
[2017-03-15] MEDS: ASPIRIN 81 MG CHEW TAB PO SCH (09:21)
[2017-03-15] MEDS: ATORVASTATIN 20 MG TAB PO SCH (09:21)
[2017-03-15] MEDS: METOPROLOL TARTRATE 25 MG TAB PO SCH ×2 (09:21→20:48)
[2017-03-15] MEDS: MULTIVITAMINS/MINERALS THERAPEUTIC TAB PO SCH (09:21)
[2017-03-15] MEDS: SODIUM CHLORIDE 0.9% FLUSH 10 ML FLUSH IV FLUSH SCH ×2 (09:22→20:49)
--- NOTE | 2017-03-15 12:19 | EKG ---
Date Performed: 03/14/2017 Time Performed: 13:50:52 PTAGE: 76 years EKG: Atrial fibrillation with rapid ventricular response. Inferior infarct - age undetermined Po ssible left ventricular hypertrophy Anterolateral ST-T changes are probably due to ventricular hypert rophy Compared to previous tracing, atrial fibrillation is new, otherwise likely unchanged Abnormal E CG PREVIOUS TRACING : 03/14/2017 03.55 DOCTOR: Joel Garcia Interpretating Date/Time 03/15/2017 12:18:07
[2017-03-15] MEDS: ACETAMINOPHEN 325 MG TAB PO PRN ×3 (14:18→23:17)
[2017-03-15] MEDS ORDERED: METOPROLOL TARTRATE 5 MG/5 ML VIAL IV PUSH ONE ×2 (14:45→18:00)
[2017-03-15] MEDS ORDERED: AMIODARONE 150 MG/D5W 97 ML BOLUS 10 MINUTES IV ONE ×2 (18:00)
[2017-03-15] MEDS: AMIODARONE 200 MG TAB PO SCH (20:48)
[2017-03-15] MEDS: SENNOSIDES 8.6 MG TAB PO SCH (20:49)
[2017-03-16] VITALS (11 sets, daily range): BP systolic 109–124; BP diastolic 69–89; PULSE 100–130; RESP 18–24; TEMP 98.1–99.6; O2SAT 93–97
[2017-03-16] MEDS: INSULIN ASPART SUPPLEMENTAL SCALE SQ SCH ×4 (02:00→17:00)
[2017-03-16 04:33] LABS: AUTOMATED NEUTROPHIL # 7.8 TH/MM3 (1.8-7.7); HEMATOCRIT 25.4 % (39.0-51.0); HEMOGLOBIN 8.9 GM/DL (13.0-17.0); LYMPH % 7.2 % (9.0-44.0); LYMPHOCYTE # 0.7 TH/MM3 (1.0-4.8); MEAN CELL VOLUME 87.7 FL (80.0-100.0); MEAN CORPUSCULAR HEMOGLOBIN 30.5 PG (27.0-34.0); MEAN CORPUSCULAR HGB CONC 34.8 % (32.0-36.0); MEAN PLATELET VOLUME 8.8 FL (7.0-11.0); MONO % 6.7 % (0.0-8.0); MONOCYTE # 0.6 TH/MM3 (0-0.9); NEUT % 86.1 % (16.0-70.0); PLATELET COUNT 139 TH/MM3 (150-450); RED CELL DISTRIBUTION WIDTH 14.6 % (11.6-17.2); WHITE BLOOD COUNT 9.1 TH/MM3 (4.0-11.0)
[2017-03-16 04:52] LABS: BICARBONATE 23.7 MEQ/L (21.0-32.0); CALCIUM 8.2 MG/DL (8.5-10.1); CREATININE 1.09 MG/DL (0.60-1.30)
[2017-03-16] MEDS: METOPROLOL TARTRATE 5 MG/5 ML VIAL IV PUSH PRN ×2 (05:57→06:16)
[2017-03-16] MEDS: PANTOPRAZOLE SOD 40 MG DELAYED RELEASE TAB PO SCH (06:03)
[2017-03-16] MEDS: ACETAMINOPHEN 325 MG TAB PO PRN ×2 (06:03→21:42)
[2017-03-16] MEDS: RESP: ALBUTEROL 2.5 MG/IPRATROPIUM 0.5 MG NEB (SCH) NEB (08:18)
[2017-03-16] MEDS: MAGNESIUM HYDROXIDE SUSP 30 ML CUP PO SCH (08:30)
[2017-03-16] MEDS: POLYETHYLENE GLYCOL 17 GM PKG PO SCH (08:30)
[2017-03-16] MEDS: DOCUSATE SODIUM 100 MG CAP PO SCH ×2 (08:31→21:42)
[2017-03-16] MEDS: ATORVASTATIN 20 MG TAB PO SCH (08:31)
[2017-03-16] MEDS: MULTIVITAMINS/MINERALS THERAPEUTIC TAB PO SCH (08:31)
[2017-03-16] MEDS: AMIODARONE 200 MG TAB PO SCH (08:31)
[2017-03-16] MEDS: CLOPIDOGREL 75 MG TAB PO SCH (08:31)
[2017-03-16] MEDS: SODIUM CHLORIDE 0.9% FLUSH 10 ML FLUSH IV FLUSH SCH ×2 (08:32→21:43)
[2017-03-16] MEDS: METOPROLOL TARTRATE 25 MG TAB PO SCH (08:32)
[2017-03-16] MEDS: ASPIRIN 81 MG CHEW TAB PO SCH (08:32)
[2017-03-16] MEDS ORDERED: FUROSEMIDE 40 MG/4 ML VIAL IV PUSH ONE (10:00)
[2017-03-16] MEDS ORDERED: POTASSIUM CHLORIDE 10 MEQ CONTROLLED RELEASE TAB PO ONE (10:00)
[2017-03-16] MEDS ORDERED: AMIODARONE INJ 150 MG in DEXTROSE 5% IN WATER 100ML INJ 97 ML IV ONE ×2 (12:12)
--- NOTE | 2017-03-16 12:20 | PD.CAR.PN ---
CVT Progress Note Subjective/Hospital Course: 76-year-old male. Patient of Dr. Faraz Del Real, Dr. Stewart who recently had a stress test back in October of 2015 for left-sided chest discomfort, essentially negative. But over the past couple of days he started having a different kind of pain. This was a burning type pain that went down his arm. [place] It happened a few times over the last few weeks and yesterday was severe enough to come into the emergency department. Troponins were negative, however, due to his history or risk factors he underwent cardiac catheterization by Dr. Stewart today which showed an ejection fraction of 60%, proximal LAD 80%, mid distal LAD had two areas of 80% stenosis. The circ had 50% . Right coronary artery had 95% stenosis. We were consulted to evaluate for coronary artery bypass grafting. PAST MEDICAL HISTORY: Hyperlipidemia, Hypertension, Malignant thymoma. PAST SURGICAL HISTORY: Thymectomy with a left thoracotomy approach three years ago at [facility] where he had also radiation for six weeks post, Prostatectomy. 03/12 pt had mild chest pain this am 02/25, Nitro gtt started by cardiology pt now pain free for surgery in am 03/14/17 Doing well s/p CABG No complaints this AM 03/15/17 AFIB yesterday, converted with amiodarone 03/16 back in afib / rate 130 add IV amiodarone bolus and gtt start eliquis / dc plavix increase BB as tolerated pt and interested in SNF Objective: GENERAL: A&O x 3 SKIN: Warm and dry. prevena dressing to chest , incision intact to left leg HEAD: Normocephalic. EYES: No scleral icterus. No injection or drainage. NECK: Supple, trachea midline. No JVD or lymphadenopathy. CARDIOVASCULAR: irregular rate and rhythm no , gallops, or rubs. RESPIRATORY: Breath sounds equal bilaterally. No accessory muscle use. diminished in bases GASTROINTESTINAL: Abdomen soft, non-tender, nondistended. MUSCULOSKELETAL: No cyanosis, or edema. BACK: Nontender without obvious deformity. No CVA tenderness. Vital Signs Date Time Temp Pulse Resp B/P (MAP) Pulse Ox O2 Delivery O2 Flow Rate FiO2 03/16/17 08:18 96 Simple Mask 8.00 03/16/17 07:00 115 03/16/17 07:00 97 Simple Mask 8.00 03/16/17 07:00 99.0 100 18 115/79 (91) 97 03/16/17 03:00 127 03/16/17 03:00 99.4 120 20 124/86 (99) 93 03/16/17 00:34 20 03/15/17 23:00 128 03/15/17 23:00 97.8 117 20 137/87 (104) 90 03/15/17 20:51 94 Nasal Cannula 4.00 03/15/17 19:00 99.3 127 20 116/82 (93) 96 03/15/17 19:00 95 Simple Mask 8.00 03/15/17 19:00 114 03/15/17 18:16 127 116/80 03/15/17 15:00 118 03/15/17 15:00 118 26 114/79 (91) 94 Labs: Laboratory Tests Test 03/16/17 03:00 White Blood Count 9.1 TH/MM3 (4.0-11.0) Red Blood Count 2.90 MIL/MM3 (4.50-5.90) Hemoglobin 8.9 GM/DL (13.0-17.0) Hematocrit 25.4 % (39.0-51.0) Mean Corpuscular Volume 87.7 FL (80.0-100.0) Mean Corpuscular Hemoglobin 30.5 PG (27.0-34.0) Mean Corpuscular Hemoglobin Concent 34.8 % (32.0-36.0) Red Cell Distribution Width 14.6 % (11.6-17.2) Platelet Count 139 TH/MM3 (150-450) Mean Platelet Volume 8.8 FL (7.0-11.0) Neutrophils (%) (Auto) 86.1 % (16.0-70.0) Lymphocytes (%) (Auto) 7.2 % (9.0-44.0) Monocytes (%) (Auto) 6.7 % (0.0-8.0) Eosinophils (%) (Auto) 0.0 % (0.0-4.0) Basophils (%) (Auto) 0.0 % (0.0-2.0) Neutrophils # (Auto) 7.8 TH/MM3 (1.8-7.7) Lymphocytes # (Auto) 0.7 TH/MM3 (1.0-4.8) Monocytes # (Auto) 0.6 TH/MM3 (0-0.9) Eosinophils # (Auto) 0.0 TH/MM3 (0-0.4) Basophils # (Auto) 0.0 TH/MM3 (0-0.2) CBC Comment DIFF FINAL Differential Comment Blood Urea Nitrogen 21 MG/DL (7-18) Creatinine 1.09 MG/DL (0.60-1.30) Random Glucose 97 MG/DL (74-106) Calcium Level 8.2 MG/DL (8.5-10.1) Sodium Level 143 MEQ/L (136-145) Potassium Level 3.9 MEQ/L (3.5-5.1) Chloride Level 112 MEQ/L (98-107) Carbon Dioxide Level 23.7 MEQ/L (21.0-32.0) Anion Gap 7 MEQ/L (5-15) Estimat Glomerular Filtration Rate 65 ML/MIN (>89) Result Diagram: 03/16/17 0300 03/16/17 0300 (1) Coronary artery disease Plan: ASA, statin , BB OOB ambulate CM to eval for rehab (2) Hyperlipemia Plan: on statin (3) Hypertension Plan: controlled (4) Hx of thymectomy (5) Afib Plan: on amiodarone , BB add jose Riley v score 4 Shayla Thomas Mar 16, 2017 12:20
[2017-03-16] MEDS ORDERED: AMIODARONE INJ 450 MG in SODIUM CHLOR 0.9% (EXCEL) INJ 250 ML IV PRN (14:00)
--- NOTE | 2017-03-16 14:02 | PD.CARD.PN ---
Subjective Subjective Remarks Patient complains of palpitations, weakness, inspiratory cough and difficulty clearing secretions (Edilia Taylor) Objective Medications Current Medications Medications (Trade) Dose Ordered Sig/Antonia Route Start Time Stop Time Status Last Admin (Lipitor) 20 mg DAILY PO 03/11/17 11:00 03/16/17 08:31 (NS Flush) 2 ml BID IV FLUSH 03/13/17 21:00 03/16/17 08:32 (NS Flush) 2 ml UNSCH PRN IV FLUSH 03/13/17 12:00 (Aspirin Chew) 81 mg DAILY PO 03/14/17 09:00 03/16/17 08:32 (Protonix) 40 mg DAILY@06 PO 03/14/17 06:00 03/16/17 06:03 (Cordarone) 400 mg Q12HR PO 03/13/17 21:00 Future Hold 03/16/17 08:31 (Tylenol) 650 mg Q4H PRN PO 03/13/17 12:15 03/16/17 06:03 ([place] 5-325 Mg) 1 tab Q3H PRN PO 03/13/17 12:30 (Zofran Inj) 4 mg Q6H PRN IV PUSH 03/13/17 12:00 (Lopressor Inj) 2.5 mg Q1H PRN IV PUSH 03/13/17 12:30 03/16/17 06:16 (Duoneb Neb) 1 ampule Q2HR NEB PRN NEB 03/13/17 12:15 (Duoneb Neb) 1 ampule Q6HR WHILE AWAKE NEB NEB 03/14/17 14:00 03/16/17 13:59 03/16/17 08:18 (Colace) 100 mg BID PO 03/14/17 21:00 03/16/17 08:31 (Theragran M Tab) 1 tab DAILY PO 03/15/17 09:00 03/16/17 08:31 (Milk Of Magnesia Liq) 30 ml DAILY PO 03/15/17 09:00 03/16/17 08:30 (Dulcolax Supp) 10 mg UNSCH PRN RECTAL 03/14/17 09:45 (Miralax) 17 gm DAILY PO 03/15/17 09:00 03/16/17 08:30 (Senokot) 8.6 mg HS PO 03/14/17 21:00 03/15/17 20:49 (D50w (Vial) Inj) 50 ml UNSCH PRN IV PUSH 03/14/17 09:45 (Glucagon Inj) 1 mg UNSCH PRN OTHER 03/14/17 09:45 (NovoLOG SUPPLEMENTAL SCALE) 1 ACHS SQ 03/16/17 12:00 Amiodarone HCl 450 mg/Sodium Chloride 259 ml @ 33.33 mls/ hr Q7H47M PRN IV 03/16/17 14:00 (Lopressor) 50 mg Q12HR PO 03/16/17 21:00 (Eliquis) 5 mg BID PO 03/16/17 21:00 Vital Signs / I&O Vital Signs Date Time Temp Pulse Resp B/P (MAP) Pulse Ox O2 Delivery O2 Flow Rate FiO2 03/16/17 12:58 130 120/75 03/16/17 11:00 98.1 130 18 109/70 (83) 97 03/16/17 11:00 130 03/16/17 08:18 96 Simple Mask 8.00 03/16/17 07:00 115 03/16/17 07:00 97 Simple Mask 8.00 03/16/17 07:00 99.0 100 18 115/79 (91) 97 03/16/17 03:00 127 03/16/17 03:00 99.4 120 20 124/86 (99) 93 03/16/17 00:34 20 03/15/17 23:00 128 03/15/17 23:00 97.8 117 20 137/87 (104) 90 03/15/17 20:51 94 Nasal Cannula 4.00 03/15/17 19:00 99.3 127 20 116/82 (93) 96 03/15/17 19:00 95 Simple Mask 8.00 03/15/17 19:00 114 03/15/17 18:16 127 116/80 03/15/17 15:00 118 03/15/17 15:00 118 26 114/79 (91) 94 I/O 03/15/17 03/15/17 03/15/17 03/16/17 03/16/17 03/16/17 07:00 15:00 23:00 07:00 15:00 23:00 Intake Total 585 ml 1597 ml 480 ml Output Total 1350 ml 670 ml 620 ml Balance -765 ml 927 ml -140 ml Intake Oral 240 ml 960 ml 480 ml IV Total 345 ml 637 ml Output Urine Total 1250 ml 650 ml 620 ml Chest Tube Drainage Total 100 ml 20 ml # Voids 1 1 # Bowel Movements 0 0 Physical Exam GENERAL: Male, NAD. SKIN: Warm and dry. HEAD: Normocephalic. Mild pallor EYES: No scleral icterus. No injection or drainage. NECK: elevated JVD CARDIOVASCULAR: Irreg irreg, tachycardia RESPIRATORY: No accessory muscle use. nasal cannula, bilateral rales MUSCULOSKELETAL: No cyanosis, or edema. BLE suzanne wraps Laboratory Laboratory Tests Test 03/16/17 03:00 White Blood Count 9.1 TH/MM3 Red Blood Count 2.90 MIL/MM3 Hemoglobin 8.9 GM/DL Hematocrit 25.4 % Mean Corpuscular Volume 87.7 FL Mean Corpuscular Hemoglobin 30.5 PG Mean Corpuscular Hemoglobin Concent 34.8 % Red Cell Distribution Width 14.6 % Platelet Count 139 TH/MM3 Mean Platelet Volume 8.8 FL Neutrophils (%) (Auto) 86.1 % Lymphocytes (%) (Auto) 7.2 % Monocytes (%) (Auto) 6.7 % Eosinophils (%) (Auto) 0.0 % Basophils (%) (Auto) 0.0 % Neutrophils # (Auto) 7.8 TH/MM3 Lymphocytes # (Auto) 0.7 TH/MM3 Monocytes # (Auto) 0.6 TH/MM3 Eosinophils # (Auto) 0.0 TH/MM3 Basophils # (Auto) 0.0 TH/MM3 CBC Comment DIFF FINAL Differential Comment Blood Urea Nitrogen 21 MG/DL Creatinine 1.09 MG/DL Random Glucose 97 MG/DL Calcium Level 8.2 MG/DL Sodium Level 143 MEQ/L Potassium Level 3.9 MEQ/L Chloride Level 112 MEQ/L Carbon Dioxide Level 23.7 MEQ/L Anion Gap 7 MEQ/L Estimat Glomerular Filtration Rate 65 ML/MIN Imaging Last 72 hours Impressions Chest X-Ray 03/14/17 0500 Signed Impressions: Service Date/Time: Tuesday, March 14, 2017 03:43 - CONCLUSION: 1. Tubes and lines in good position. 2. Mild atelectasis or consolidation at the left base. Carlos Reveles MD (Edilia Taylor) Assessment and Plan Problem List: (1) Coronary artery disease ICD Codes: I25.10 - Atherosclerotic heart disease of [place] coronary artery without angina pectoris (2) Hyperlipemia ICD Codes: E78.5 - Hyperlipidemia, unspecified (3) Hypertension ICD Codes: I10 - Essential (primary) hypertension (4) Hx of thymectomy ICD Codes: Z98.890 - Other specified postprocedural states; Z90.89 - Acquired absence of other organs (5) Afib ICD Codes: I48.91 - Unspecified atrial fibrillation Assessment and Plan 03/13/2017 Urgent Off-pump Coronary Artery Bypass Grafting x 2 with Left Internal Mammary Artery (BERUMEN) to the Left Anterior Descending (LAD), reverse saphenous vein graft to the Posterior Descending Artery (RPDA) of the Right Coronary Artery Post operative atrial fibrillation. HTN HLD PLAN: Eliquis , Amio bolus and gtt, increased BB, lasix per CT surgery Continue statin The patient was seen and evaluated by Dr Stewart who completed face to face encounter and physical exam and participated in evaluation and management. (Edilia Taylor) Assessment and Plan The exam, history, and the medical decision-making described in the above note were completed with the assistance of the mid-level provider. I reviewed and agree with the findings presented. I attest that I had a [id number] encounter with the patient on the same day, and personally performed and documented my assessment and findings in the medical record. Doing very well post cabg, discussed amiodarone /cardioversion if still in afib. (Wilber Stewart MD) Edilia Taylor Mar 16, 2017 14:02 Wilber Stewart MD Mar 17, 2017 14:45
[2017-03-16] MEDS: METOPROLOL TARTRATE 50 MG TAB PO SCH (20:27)
[2017-03-16] MEDS: SENNOSIDES 8.6 MG TAB PO SCH (21:42)
[2017-03-16] MEDS: APIXABAN 5 MG TABLET PO SCH (21:43)
[2017-03-17] VITALS (25 sets, daily range): BP systolic 105–149; BP diastolic 71–85; PULSE 80–138; RESP 12–20; TEMP 97.6–102; O2SAT 92–96
[2017-03-17] MEDS: INSULIN ASPART SUPPLEMENTAL SCALE SQ SCH ×5 (01:00→21:00)
[2017-03-17 05:14] LABS: HEMATOCRIT 25.7 % (39.0-51.0); MEAN CELL VOLUME 87.4 FL (80.0-100.0); MEAN CORPUSCULAR HEMOGLOBIN 30.5 PG (27.0-34.0); MEAN CORPUSCULAR HGB CONC 34.9 % (32.0-36.0); MEAN PLATELET VOLUME 8.5 FL (7.0-11.0); PLATELET COUNT 162 TH/MM3 (150-450); RED BLOOD COUNT 2.94 MIL/MM3 (4.50-5.90); RED CELL DISTRIBUTION WIDTH 14.4 % (11.6-17.2); WHITE BLOOD COUNT 7.9 TH/MM3 (4.0-11.0)
[2017-03-17] MEDS: PANTOPRAZOLE SOD 40 MG DELAYED RELEASE TAB PO SCH (05:59)
[2017-03-17] MEDS: MAGNESIUM HYDROXIDE SUSP 30 ML CUP PO SCH (08:46)
[2017-03-17] MEDS: ATORVASTATIN 20 MG TAB PO SCH (08:47)
[2017-03-17] MEDS: METOPROLOL TARTRATE 50 MG TAB PO SCH ×2 (08:47→20:55)
[2017-03-17] MEDS: APIXABAN 5 MG TABLET PO SCH ×2 (08:47→20:55)
[2017-03-17] MEDS: ASPIRIN 81 MG CHEW TAB PO SCH (08:47)
[2017-03-17] MEDS: SODIUM CHLORIDE 0.9% FLUSH 10 ML FLUSH IV FLUSH SCH ×2 (08:47→20:55)
[2017-03-17] MEDS: POLYETHYLENE GLYCOL 17 GM PKG PO SCH (08:47)
[2017-03-17] MEDS: MULTIVITAMINS/MINERALS THERAPEUTIC TAB PO SCH (08:47)
[2017-03-17] MEDS: DOCUSATE SODIUM 100 MG CAP PO SCH ×2 (08:47→20:55)
[2017-03-17] MEDS: DILTIAZEM 125 MG/NS 100 ML IV PRN ×4 (12:26→23:00)
--- NOTE | 2017-03-17 13:56 | PD.CARD.PN ---
Subjective Subjective Remarks Patient states that he feels better and more energetic today. Continues in atrial fibrillation. Continued in RVR this morning. Cardizem started, amio gtt stopped. (Edilia Taylor) Objective Medications Current Medications Medications (Trade) Dose Ordered Sig/Antonia Route Start Time Stop Time Status Last Admin (Lipitor) 20 mg DAILY PO 03/11/17 11:00 03/17/17 08:47 (NS Flush) 2 ml BID IV FLUSH 03/13/17 21:00 03/17/17 08:47 (NS Flush) 2 ml UNSCH PRN IV FLUSH 03/13/17 12:00 (Aspirin Chew) 81 mg DAILY PO 03/14/17 09:00 03/17/17 08:47 (Protonix) 40 mg DAILY@06 PO 03/14/17 06:00 03/17/17 05:59 (Cordarone) 400 mg Q12HR PO 03/13/17 21:00 Future Hold 03/16/17 08:31 (Tylenol) 650 mg Q4H PRN PO 03/13/17 12:15 03/16/17 21:42 ([place] 5-325 Mg) 1 tab Q3H PRN PO 03/13/17 12:30 (Zofran Inj) 4 mg Q6H PRN IV PUSH 03/13/17 12:00 (Lopressor Inj) 2.5 mg Q1H PRN IV PUSH 03/13/17 12:30 03/16/17 06:16 (Duoneb Neb) 1 ampule Q2HR NEB PRN NEB 03/13/17 12:15 (Colace) 100 mg BID PO 03/14/17 21:00 03/17/17 08:47 (Theragran M Tab) 1 tab DAILY PO 03/15/17 09:00 03/17/17 08:47 (Milk Of Magnesia Liq) 30 ml DAILY PO 03/15/17 09:00 03/16/17 08:30 (Dulcolax Supp) 10 mg UNSCH PRN RECTAL 03/14/17 09:45 (Miralax) 17 gm DAILY PO 03/15/17 09:00 03/16/17 08:30 (Senokot) 8.6 mg HS PO 03/14/17 21:00 03/16/17 21:42 (D50w (Vial) Inj) 50 ml UNSCH PRN IV PUSH 03/14/17 09:45 (Glucagon Inj) 1 mg UNSCH PRN OTHER 03/14/17 09:45 (NovoLOG SUPPLEMENTAL SCALE) 1 ACHS SQ 03/16/17 12:00 03/17/17 08:00 (Lopressor) 50 mg Q12HR PO 03/16/17 21:00 03/17/17 08:47 (Eliquis) 5 mg BID PO 03/16/17 21:00 03/17/17 08:47 Diltiazem HCl 125 mg/Sodium Chloride 125 ml @ 5 mls/hr TITRATE PRN IV 03/17/17 11:30 03/17/17 12:26 Vital Signs / I&O Vital Signs Date Time Temp Pulse Resp B/P (MAP) Pulse Ox O2 Delivery O2 Flow Rate FiO2 03/17/17 13:00 92 03/17/17 12:26 98 111/73 03/17/17 12:00 102 03/17/17 11:25 97.6 90 19 113/74 (87) 92 03/17/17 11:00 93 03/17/17 10:00 114 03/17/17 09:59 94 21 03/17/17 09:00 124 03/17/17 08:00 138 03/17/17 07:40 98.4 110 20 149/85 (106) 95 03/17/17 07:40 95 Room Air 03/17/17 07:00 105 03/17/17 04:00 98 03/17/17 03:30 98.7 102 20 118/82 (94) 94 03/17/17 03:00 102 03/17/17 02:00 100 03/17/17 01:00 102 03/17/17 00:00 98.7 94 20 112/71 (85) 94 03/17/17 00:00 108 03/16/17 23:00 126 03/16/17 22:00 126 03/16/17 21:00 120 03/16/17 20:00 99.6 128 24 118/89 (99) 94 03/16/17 20:00 94 Nasal Cannula 5.00 03/16/17 20:00 120 03/16/17 19:45 93 Nasal Cannula 6.00 03/16/17 19:00 130 03/16/17 15:00 115 03/16/17 15:00 98.1 115 18 110/69 (83) 97 03/16/17 14:00 132 125/75 03/16/17 13:58 115 130/87 I/O 03/16/17 03/16/17 03/16/17 03/17/17 03/17/17 03/17/17 07:00 15:00 23:00 07:00 15:00 23:00 Intake Total 480 ml 100 ml 200 ml 240 ml Output Total 620 ml 800 ml 550 ml Balance -140 ml 100 ml -600 ml -310 ml Intake Oral 480 ml 200 ml 240 ml IV Total 100 ml Output Urine Total 620 ml 800 ml 550 ml # Voids 1 # Bowel Movements 0 Physical Exam GENERAL: Male, NAD. Up in the chair SKIN: Warm and dry. HEAD: Normocephalic. Mild pallor EYES: No scleral icterus. No injection or drainage. NECK: No elevation of JVD CARDIOVASCULAR: Irreg irreg, tachycardia RESPIRATORY: No accessory muscle use. CTA MUSCULOSKELETAL: No cyanosis, or edema. BLE suzanne wraps Laboratory Laboratory Tests Test 03/17/17 04:29 White Blood Count 7.9 TH/MM3 Red Blood Count 2.94 MIL/MM3 Hemoglobin 9.0 GM/DL Hematocrit 25.7 % Mean Corpuscular Volume 87.4 FL Mean Corpuscular Hemoglobin 30.5 PG Mean Corpuscular Hemoglobin Concent 34.9 % Red Cell Distribution Width 14.4 % Platelet Count 162 TH/MM3 Mean Platelet Volume 8.5 FL (Edilia Taylor) Assessment and Plan Problem List: (1) Coronary artery disease ICD Codes: I25.10 - Atherosclerotic heart disease of [place] coronary artery without angina pectoris (2) Hyperlipemia ICD Codes: E78.5 - Hyperlipidemia, unspecified (3) Hypertension ICD Codes: I10 - Essential (primary) hypertension (4) Hx of thymectomy ICD Codes: Z98.890 - Other specified postprocedural states; Z90.89 - Acquired absence of other organs (5) Afib ICD Codes: I48.91 - Unspecified atrial fibrillation Assessment and Plan 03/13/2017 Urgent Off-pump Coronary Artery Bypass Grafting x 2 with Left Internal Mammary Artery (BERUMEN) to the Left Anterior Descending (LAD), reverse saphenous vein graft to the Posterior Descending Artery (RPDA) of the Right Coronary Artery Post operative atrial fibrillation. HTN HLD PLAN: We will bolus amio again and continue for 48 hours. If he does not convert, we will plan direct current cardioversion on Thursday Continue Eliquis The patient was seen and evaluated by Dr Stewart who completed face to face encounter and physical exam and participated in evaluation and management. (Edilia Taylor) Assessment and Plan The exam, history, and the medical decision-making described in the above note were completed with the assistance of the mid-level provider. I reviewed and agree with the findings presented. I attest that I had a [id number] encounter with the patient on the same day, and personally performed and documented my assessment and findings in the medical record. Wants to try meds first to convert. (Wilber Stewart MD) Edilia Taylor Mar 17, 2017 13:56 Wilber Stewart MD Mar 17, 2017 14:50
[2017-03-17] MEDS ORDERED: AMIODARONE 150 MG/D5W 97 ML BOLUS 10 MINUTES IV ONE ×2 (14:45)
--- NOTE | 2017-03-17 15:13 | PD.CAR.PN ---
CVT Progress Note Subjective/Hospital Course: 76-year-old male. Patient of Dr. Faraz Del Real, Dr. Stewart who recently had a stress test back in October of 2015 for left-sided chest discomfort, essentially negative. But over the past couple of days he started having a different kind of pain. This was a burning type pain that went down his arm. [place] It happened a few times over the last few weeks and yesterday was severe enough to come into the emergency department. Troponins were negative, however, due to his history or risk factors he underwent cardiac catheterization by Dr. Stewart today which showed an ejection fraction of 60%, proximal LAD 80%, mid distal LAD had two areas of 80% stenosis. The circ had 50% . Right coronary artery had 95% stenosis. We were consulted to evaluate for coronary artery bypass grafting. PAST MEDICAL HISTORY: Hyperlipidemia, Hypertension, Malignant thymoma. PAST SURGICAL HISTORY: Thymectomy with a left thoracotomy approach three years ago at [facility] where he had also radiation for six weeks post, Prostatectomy. 03/12 pt had mild chest pain this am 02/25, Nitro gtt started by cardiology pt now pain free for surgery in am 03/14/17 Doing well s/p CABG No complaints this AM 03/15/17 AFIB yesterday, converted with amiodarone 03/16 back in afib / rate 130 add IV amiodarone bolus and gtt start eliquis / dc plavix increase BB as tolerated pt and interested in SNF 03/17 remains in afib , intermittent RVR, changed to cardizem then back to amiodarone possible cardioversion on thursday if pt does not convert Objective: GENERAL: A&O x 3 SKIN: Warm and dry. prevena dressing to chest HEAD: Normocephalic. EYES: No scleral icterus. No injection or drainage. NECK: Supple, trachea midline. No JVD or lymphadenopathy. CARDIOVASCULAR: irregular rate and rhythm without murmurs, gallops, or rubs. RESPIRATORY: Breath sounds equal bilaterally. No accessory muscle use. GASTROINTESTINAL: Abdomen soft, non-tender, nondistended. MUSCULOSKELETAL: No cyanosis, or edema. BACK: Nontender without obvious deformity. No CVA tenderness. Vital Signs Date Time Temp Pulse Resp B/P (MAP) Pulse Ox O2 Delivery O2 Flow Rate FiO2 03/17/17 13:00 92 03/17/17 12:26 98 111/73 03/17/17 12:00 102 03/17/17 11:25 97.6 90 19 113/74 (87) 92 03/17/17 11:00 93 03/17/17 10:00 114 03/17/17 09:59 94 21 03/17/17 09:00 124 03/17/17 08:00 138 03/17/17 07:40 98.4 110 20 149/85 (106) 95 03/17/17 07:40 95 Room Air 03/17/17 07:00 105 03/17/17 04:00 98 03/17/17 03:30 98.7 102 20 118/82 (94) 94 03/17/17 03:00 102 03/17/17 02:00 100 03/17/17 01:00 102 03/17/17 00:00 98.7 94 20 112/71 (85) 94 03/17/17 00:00 108 03/16/17 23:00 126 03/16/17 22:00 126 03/16/17 21:00 120 03/16/17 20:00 99.6 128 24 118/89 (99) 94 03/16/17 20:00 94 Nasal Cannula 5.00 03/16/17 20:00 120 03/16/17 19:45 93 Nasal Cannula 6.00 03/16/17 19:00 130 Labs: Laboratory Tests Test 03/17/17 04:29 White Blood Count 7.9 TH/MM3 (4.0-11.0) Red Blood Count 2.94 MIL/MM3 (4.50-5.90) Hemoglobin 9.0 GM/DL (13.0-17.0) Hematocrit 25.7 % (39.0-51.0) Mean Corpuscular Volume 87.4 FL (80.0-100.0) Mean Corpuscular Hemoglobin 30.5 PG (27.0-34.0) Mean Corpuscular Hemoglobin Concent 34.9 % (32.0-36.0) Red Cell Distribution Width 14.4 % (11.6-17.2) Platelet Count 162 TH/MM3 (150-450) Mean Platelet Volume 8.5 FL (7.0-11.0) Result Diagram: 03/17/17 0429 03/16/17 0300 Telemetry: afib (1) Coronary artery disease Plan: ASA, statin , BB OOB ambulate CM to eval for rehab (2) Hyperlipemia Plan: on statin (3) Hypertension Plan: controlled (4) Hx of thymectomy (5) Afib Plan: on amiodarone , BB add eliquis Riley v score 4 Dr Stewart following Shayla Thomas Mar 17, 2017 15:13
[2017-03-17] MEDS: AMIODARONE INJ 450 MG in SODIUM CHLOR 0.9% (EXCEL) INJ 250 ML IV PRN (15:32)
[2017-03-17] MEDS: ACETAMINOPHEN 325 MG TAB PO PRN (20:54)
[2017-03-17] MEDS: SENNOSIDES 8.6 MG TAB PO SCH (20:55)
[2017-03-18] VITALS (25 sets, daily range): BP systolic 106–131; BP diastolic 62–86; PULSE 80–126; RESP 12–18; TEMP 98.2–99.5; O2SAT 92–95
[2017-03-18] MEDS: AMIODARONE INJ 450 MG in SODIUM CHLOR 0.9% (EXCEL) INJ 250 ML IV PRN ×2 (03:20→23:10)
[2017-03-18] MEDS: PANTOPRAZOLE SOD 40 MG DELAYED RELEASE TAB PO SCH (05:56)
[2017-03-18] MEDS: ASPIRIN 81 MG CHEW TAB PO SCH (10:10)
[2017-03-18] MEDS: METOPROLOL TARTRATE 50 MG TAB PO SCH ×2 (10:10→21:23)
[2017-03-18] MEDS: APIXABAN 5 MG TABLET PO SCH ×2 (10:10→21:23)
[2017-03-18] MEDS: MULTIVITAMINS/MINERALS THERAPEUTIC TAB PO SCH (10:10)
[2017-03-18] MEDS: SODIUM CHLORIDE 0.9% FLUSH 10 ML FLUSH IV FLUSH SCH ×2 (10:11→21:00)
[2017-03-18] MEDS: ATORVASTATIN 20 MG TAB PO SCH (10:11)
[2017-03-18] MEDS: DOCUSATE SODIUM 100 MG CAP PO SCH ×2 (10:11→21:23)
[2017-03-18] MEDS: POLYETHYLENE GLYCOL 17 GM PKG PO SCH (10:12)
[2017-03-18] MEDS: INSULIN ASPART SUPPLEMENTAL SCALE SQ SCH ×4 (10:12→21:00)
[2017-03-18] MEDS: MAGNESIUM HYDROXIDE SUSP 30 ML CUP PO SCH (10:12)
--- NOTE | 2017-03-18 14:29 | PD.CARD.PN ---
Subjective Subjective Remarks Patient had an episode of lightheadedness and diaphoresis morning when he got up to walk. No orthostatics/vitals completed. Currently, he feels weak, but denies CP, palpitations or SOB. No edema. He remains in afib on amio and cardizem (Edilia Taylor) Objective Medications Current Medications Medications (Trade) Dose Ordered Sig/Antonia Route Start Time Stop Time Status Last Admin (Lipitor) 20 mg DAILY PO 03/11/17 11:00 03/18/17 10:11 (NS Flush) 2 ml BID IV FLUSH 03/13/17 21:00 03/18/17 10:11 (NS Flush) 2 ml UNSCH PRN IV FLUSH 03/13/17 12:00 (Aspirin Chew) 81 mg DAILY PO 03/14/17 09:00 03/18/17 10:10 (Protonix) 40 mg DAILY@06 PO 03/14/17 06:00 03/18/17 05:56 (Cordarone) 400 mg Q12HR PO 03/13/17 21:00 Future Hold 03/16/17 08:31 (Tylenol) 650 mg Q4H PRN PO 03/13/17 12:15 03/17/17 20:54 ([place] 5-325 Mg) 1 tab Q3H PRN PO 03/13/17 12:30 03/18/17 10:10 (Zofran Inj) 4 mg Q6H PRN IV PUSH 03/13/17 12:00 (Lopressor Inj) 2.5 mg Q1H PRN IV PUSH 03/13/17 12:30 03/16/17 06:16 (Duoneb Neb) 1 ampule Q2HR NEB PRN NEB 03/13/17 12:15 (Colace) 100 mg BID PO 03/14/17 21:00 03/18/17 10:11 (Theragran M Tab) 1 tab DAILY PO 03/15/17 09:00 03/18/17 10:10 (Milk Of Magnesia Liq) 30 ml DAILY PO 03/15/17 09:00 03/16/17 08:30 (Dulcolax Supp) 10 mg UNSCH PRN RECTAL 03/14/17 09:45 (Miralax) 17 gm DAILY PO 03/15/17 09:00 03/16/17 08:30 (Senokot) 8.6 mg HS PO 03/14/17 21:00 03/17/17 20:55 (D50w (Vial) Inj) 50 ml UNSCH PRN IV PUSH 03/14/17 09:45 (Glucagon Inj) 1 mg UNSCH PRN OTHER 03/14/17 09:45 (NovoLOG SUPPLEMENTAL SCALE) 1 ACHS SQ 03/16/17 12:00 03/18/17 12:47 (Lopressor) 50 mg Q12HR PO 03/16/17 21:00 03/18/17 10:10 (Eliquis) 5 mg BID PO 03/16/17 21:00 03/18/17 10:10 Diltiazem HCl 125 mg/Sodium Chloride 125 ml @ 5 mls/hr TITRATE PRN IV 03/17/17 11:30 03/17/17 23:00 Amiodarone HCl 450 mg/Sodium Chloride 259 ml @ 34.53 mls/ hr TITRATE PRN IV 03/17/17 15:00 03/18/17 03:20 Vital Signs / I&O Vital Signs Date Time Temp Pulse Resp B/P (MAP) Pulse Ox O2 Delivery O2 Flow Rate FiO2 03/18/17 14:00 89 03/18/17 13:00 86 03/18/17 12:00 84 03/18/17 11:15 18 03/18/17 11:00 98.6 90 18 109/75 (86) 95 03/18/17 11:00 90 03/18/17 10:00 126 03/18/17 09:00 126 03/18/17 08:13 92 Nasal Cannula 3.00 03/18/17 08:00 93 Nasal Cannula 3.00 03/18/17 08:00 98.2 117 16 131/70 (90) 93 03/18/17 08:00 114 03/18/17 07:00 107 03/18/17 06:00 114 03/18/17 05:00 112 03/18/17 04:00 110 03/18/17 03:20 118 124/86 03/18/17 03:00 99.4 118 12 124/86 (99) 92 03/18/17 03:00 118 03/18/17 02:00 104 03/18/17 00:00 94 03/17/17 23:00 98.5 101 12 105/79 (88) 93 03/17/17 23:00 93 Nasal Cannula 3.00 03/17/17 23:00 106 105/79 03/17/17 21:54 14 03/17/17 20:04 93 21 03/17/17 19:00 108 03/17/17 19:00 96 Room Air 03/17/17 19:00 102.0 108 12 147/78 (101) 96 03/17/17 18:09 118 03/17/17 17:00 102 03/17/17 16:00 94 03/17/17 15:32 86 133/76 03/17/17 15:22 98.1 95 19 141/85 (103) 93 03/17/17 15:21 105 141/85 03/17/17 15:00 80 I/O 03/17/17 03/17/17 03/17/17 03/18/17 03/18/17 03/18/17 06:59 14:59 22:59 06:59 14:59 22:59 Intake Total 240 ml 935 ml 616 ml Output Total 550 ml 500 ml Balance -310 ml 935 ml 116 ml Intake Oral 240 ml 920 ml 240 ml IV Total 15 ml 376 ml Output Urine Total 550 ml 500 ml # Voids 3 # Bowel Movements 1 1 Physical Exam GENERAL: Male, NAD. SKIN: Warm and dry. HEAD: Normocephalic. Mild pallor EYES: No scleral icterus. No injection or drainage. NECK: No elevation of JVD CARDIOVASCULAR: Irreg irreg, reg rate RESPIRATORY: No accessory muscle use. CTA MUSCULOSKELETAL: No cyanosis, or edema. BLE suzanne wraps (Edilia Taylor) Assessment and Plan Problem List: (1) Coronary artery disease ICD Codes: I25.10 - Atherosclerotic heart disease of [place] coronary artery without angina pectoris (2) Hyperlipemia ICD Codes: E78.5 - Hyperlipidemia, unspecified (3) Hypertension ICD Codes: I10 - Essential (primary) hypertension (4) Hx of thymectomy ICD Codes: Z98.890 - Other specified postprocedural states; Z90.89 - Acquired absence of other organs (5) Afib ICD Codes: I48.91 - Unspecified atrial fibrillation Assessment and Plan 03/13/2017 Urgent Off-pump Coronary Artery Bypass Grafting x 2 with Left Internal Mammary Artery (BERUMEN) to the Left Anterior Descending (LAD), reverse saphenous vein graft to the Posterior Descending Artery (RPDA) of the Right Coronary Artery Post operative atrial fibrillation on Eliquis 5 mg BID HTN HLD PLAN: Continue cardizem gtt and amio gtt. Pending cardioversion Thursday Continue Eliquis The patient was seen and evaluated by Dr Stewart who completed face to face encounter and physical exam and participated in evaluation and management. (Edilia Taylor) Assessment and Plan The exam, history, and the medical decision-making described in the above note were completed with the assistance of the mid-level provider. I reviewed and agree with the findings presented. I attest that I had a [id number] encounter with the patient on the same day, and personally performed and documented my assessment and findings in the medical record . Discussed with Dr Gonzalez in detail and with rn.. (Wilber Stewart MD) Edilia Taylor Mar 18, 2017 14:29 Wilber Stewart MD Mar 18, 2017 15:27
--- NOTE | 2017-03-18 15:04 | PD.CAR.PN ---
CVT Progress Note Subjective/Hospital Course: 76-year-old male. Patient of Dr. Faraz Del Real, Dr. Stewart who recently had a stress test back in October of 2015 for left-sided chest discomfort, essentially negative. But over the past couple of days he started having a different kind of pain. This was a burning type pain that went down his arm. [place] It happened a few times over the last few weeks and yesterday was severe enough to come into the emergency department. Troponins were negative, however, due to his history or risk factors he underwent cardiac catheterization by Dr. Stewart today which showed an ejection fraction of 60%, proximal LAD 80%, mid distal LAD had two areas of 80% stenosis. The circ had 50% . Right coronary artery had 95% stenosis. We were consulted to evaluate for coronary artery bypass grafting. PAST MEDICAL HISTORY: Hyperlipidemia, Hypertension, Malignant thymoma. PAST SURGICAL HISTORY: Thymectomy with a left thoracotomy approach three years ago at [facility] where he had also radiation for six weeks post, Prostatectomy. 03/12 pt had mild chest pain this am 02/25, Nitro gtt started by cardiology pt now pain free for surgery in am 03/14/17 Doing well s/p CABG No complaints this AM 03/15/17 AFIB yesterday, converted with amiodarone 03/16 back in afib / rate 130 add IV amiodarone bolus and gtt start eliquis / dc plavix increase BB as tolerated pt and interested in SNF 03/17 remains in afib , intermittent RVR, changed to cardizem then back to amiodarone possible cardioversion on thursday if pt does not convert 03/18 remains in Afib, rate improved on cardizem and amiodarone recheck labs in am possible cardioversion on thursday Objective: GENERAL: A&O x 3 SKIN: Warm and dry. prevena dressing to chest , incision intact to leg HEAD: Normocephalic. EYES: No scleral icterus. No injection or drainage. NECK: Supple, trachea midline. No JVD or lymphadenopathy. CARDIOVASCULAR: irregaulr rate and rhythm without murmurs, gallops, or rubs. RESPIRATORY: Breath sounds equal bilaterally. No accessory muscle use. GASTROINTESTINAL: Abdomen soft, non-tender, nondistended. MUSCULOSKELETAL: No cyanosis, or edema. BACK: Nontender without obvious deformity. No CVA tenderness. Vital Signs Date Time Temp Pulse Resp B/P (MAP) Pulse Ox O2 Delivery O2 Flow Rate FiO2 03/18/17 14:00 89 03/18/17 13:00 86 03/18/17 12:00 84 03/18/17 11:15 18 03/18/17 11:00 98.6 90 18 109/75 (86) 95 03/18/17 11:00 90 03/18/17 10:00 126 03/18/17 09:00 126 03/18/17 08:13 92 Nasal Cannula 3.00 03/18/17 08:00 93 Nasal Cannula 3.00 03/18/17 08:00 98.2 117 16 131/70 (90) 93 03/18/17 08:00 114 03/18/17 07:00 107 03/18/17 06:00 114 03/18/17 05:00 112 03/18/17 04:00 110 03/18/17 03:20 118 124/86 03/18/17 03:00 99.4 118 12 124/86 (99) 92 03/18/17 03:00 118 03/18/17 02:00 104 03/18/17 00:00 94 03/17/17 23:00 98.5 101 12 105/79 (88) 93 03/17/17 23:00 93 Nasal Cannula 3.00 03/17/17 23:00 106 105/79 03/17/17 21:54 14 03/17/17 20:04 93 21 03/17/17 19:00 108 03/17/17 19:00 96 Room Air 03/17/17 19:00 102.0 108 12 147/78 (101) 96 03/17/17 18:09 118 03/17/17 17:00 102 03/17/17 16:00 94 03/17/17 15:32 86 133/76 03/17/17 15:22 98.1 95 19 141/85 (103) 93 03/17/17 15:21 105 141/85 Result Diagram: 03/17/17 0429 03/16/17 0300 (1) Coronary artery disease Plan: ASA, statin , BB OOB ambulate CM to eval for rehab (2) Hyperlipemia Plan: on statin (3) Hypertension Plan: controlled (4) Hx of thymectomy (5) Afib Plan: on amiodarone , BB, og garcia Riley v score 4 Dr Stewart following possible cardioversion on thursday Shayla Thomas Mar 18, 2017 15:04
[2017-03-18] MEDS: ACETAMINOPHEN 325 MG TAB PO PRN (21:23)
[2017-03-18] MEDS: SENNOSIDES 8.6 MG TAB PO SCH (21:23)
[2017-03-19] VITALS (26 sets, daily range): BP systolic 61–135; BP diastolic 61–68; PULSE 69–91; RESP 12–20; TEMP 98.2–99.7; O2SAT 91–95
[2017-03-19] MEDS: DILTIAZEM 125 MG/NS 100 ML IV PRN ×2 (03:46)
[2017-03-19 04:15] LABS: HEMATOCRIT 25.9 % (39.0-51.0); HEMOGLOBIN 8.9 GM/DL (13.0-17.0); MEAN CELL VOLUME 87.8 FL (80.0-100.0); MEAN CORPUSCULAR HEMOGLOBIN 30.2 PG (27.0-34.0); MEAN CORPUSCULAR HGB CONC 34.4 % (32.0-36.0); MEAN PLATELET VOLUME 8.5 FL (7.0-11.0); PLATELET COUNT 205 TH/MM3 (150-450); RED BLOOD COUNT 2.95 MIL/MM3 (4.50-5.90); RED CELL DISTRIBUTION WIDTH 14.2 % (11.6-17.2); WHITE BLOOD COUNT 9.9 TH/MM3 (4.0-11.0)
[2017-03-19] MEDS: ACETAMINOPHEN 325 MG TAB PO PRN ×3 (04:35→21:46)
[2017-03-19 04:41] LABS: BICARBONATE 21.5 MEQ/L (21.0-32.0); CALCIUM 7.9 MG/DL (8.5-10.1); CREATININE 1.16 MG/DL (0.60-1.30); MAGNESIUM 2.3 MG/DL (1.5-2.5); PHOSPHORUS 3.4 MG/DL (2.5-4.9)
[2017-03-19] MEDS: PANTOPRAZOLE SOD 40 MG DELAYED RELEASE TAB PO SCH (06:15)
[2017-03-19] MEDS: INSULIN ASPART SUPPLEMENTAL SCALE SQ SCH ×4 (07:47→21:47)
[2017-03-19] MEDS: APIXABAN 5 MG TABLET PO SCH ×2 (08:30→21:46)
[2017-03-19] MEDS: ASPIRIN 81 MG CHEW TAB PO SCH (08:30)
[2017-03-19] MEDS: ATORVASTATIN 20 MG TAB PO SCH (08:30)
[2017-03-19] MEDS: METOPROLOL TARTRATE 50 MG TAB PO SCH ×2 (08:30→21:47)
[2017-03-19] MEDS: DOCUSATE SODIUM 100 MG CAP PO SCH ×2 (08:30→21:47)
[2017-03-19] MEDS: MULTIVITAMINS/MINERALS THERAPEUTIC TAB PO SCH (08:30)
[2017-03-19] MEDS: POLYETHYLENE GLYCOL 17 GM PKG PO SCH (08:31)
[2017-03-19] MEDS: MAGNESIUM HYDROXIDE SUSP 30 ML CUP PO SCH (08:31)
[2017-03-19] MEDS: SODIUM CHLORIDE 0.9% FLUSH 10 ML FLUSH IV FLUSH SCH ×2 (09:00→21:47)
[2017-03-19] MEDS ORDERED: POTASSIUM CHLORIDE 20 MEQ CONTROLLED RELEASE TAB PO ONE (09:00)
--- NOTE | 2017-03-19 09:15 | PD.CARD.PN ---
Subjective Subjective Remarks The patient recently converted to sinus rhythm with rate of 75 bpm. The patient has some exertional SOB and weakness, but it is improving. Primary complaint is left arm swelling and discomfort. had a left arm IV infiltration yesterday. he also complains of swelling and pain of LLE where SVG was harvested. BP stable. (Edilia Taylor) Objective Medications Current Medications Medications (Trade) Dose Ordered Sig/Antonia Route Start Time Stop Time Status Last Admin (Lipitor) 20 mg DAILY PO 03/11/17 11:00 03/19/17 08:30 (NS Flush) 2 ml BID IV FLUSH 03/13/17 21:00 03/18/17 21:00 (NS Flush) 2 ml UNSCH PRN IV FLUSH 03/13/17 12:00 (Aspirin Chew) 81 mg DAILY PO 03/14/17 09:00 03/19/17 08:30 (Protonix) 40 mg DAILY@06 PO 03/14/17 06:00 03/19/17 06:15 (Cordarone) 400 mg Q12HR PO 03/13/17 21:00 Future Hold 03/16/17 08:31 (Tylenol) 650 mg Q4H PRN PO 03/13/17 12:15 03/19/17 04:35 ([place] 5-325 Mg) 1 tab Q3H PRN PO 03/13/17 12:30 03/18/17 10:10 (Zofran Inj) 4 mg Q6H PRN IV PUSH 03/13/17 12:00 (Lopressor Inj) 2.5 mg Q1H PRN IV PUSH 03/13/17 12:30 03/16/17 06:16 (Duoneb Neb) 1 ampule Q2HR NEB PRN NEB 03/13/17 12:15 (Colace) 100 mg BID PO 03/14/17 21:00 03/19/17 08:30 (Theragran M Tab) 1 tab DAILY PO 03/15/17 09:00 03/19/17 08:30 (Milk Of Magnesia Liq) 30 ml DAILY PO 03/15/17 09:00 03/16/17 08:30 (Dulcolax Supp) 10 mg UNSCH PRN RECTAL 03/14/17 09:45 (Miralax) 17 gm DAILY PO 03/15/17 09:00 03/16/17 08:30 (Senokot) 8.6 mg HS PO 03/14/17 21:00 03/18/17 21:23 (D50w (Vial) Inj) 50 ml UNSCH PRN IV PUSH 03/14/17 09:45 (Glucagon Inj) 1 mg UNSCH PRN OTHER 03/14/17 09:45 (NovoLOG SUPPLEMENTAL SCALE) 1 ACHS SQ 03/16/17 12:00 03/18/17 17:27 (Lopressor) 50 mg Q12HR PO 03/16/17 21:00 03/19/17 08:30 (Eliquis) 5 mg BID PO 03/16/17 21:00 03/19/17 08:30 Diltiazem HCl 125 mg/Sodium Chloride 125 ml @ 5 mls/hr TITRATE PRN IV 03/17/17 11:30 03/19/17 03:46 Amiodarone HCl 450 mg/Sodium Chloride 259 ml @ 34.53 mls/ hr TITRATE PRN IV 03/17/17 15:00 03/18/17 23:10 Vital Signs / I&O Vital Signs Date Time Temp Pulse Resp B/P (MAP) Pulse Ox O2 Delivery O2 Flow Rate FiO2 03/19/17 09:00 78 03/19/17 08:06 93 Nasal Cannula 4.00 03/19/17 08:00 88 03/19/17 07:15 93 Nasal Cannula 4.00 03/19/17 07:15 98.9 84 20 124/68 (86) 92 03/19/17 07:15 78 03/19/17 06:00 84 03/19/17 05:35 12 03/19/17 05:00 82 03/19/17 04:00 84 03/19/17 03:46 84 118/67 03/19/17 03:00 79 03/19/17 03:00 98.2 79 12 118/67 (84) 93 03/19/17 02:00 76 03/19/17 01:00 74 03/19/17 00:00 72 03/18/17 23:10 86 108/62 03/18/17 23:00 80 03/18/17 23:00 98.2 80 12 108/62 (77) 93 03/18/17 22:00 106 03/18/17 21:48 95 Nasal Cannula 3.00 03/18/17 21:00 96 03/18/17 20:00 104 03/18/17 19:00 93 Nasal Cannula 3.00 03/18/17 19:00 114 03/18/17 19:00 99.5 114 12 128/81 (97) 93 03/18/17 18:00 100 03/18/17 17:00 88 03/18/17 16:00 93 03/18/17 15:00 98.4 86 16 106/64 (78) 94 03/18/17 15:00 96 03/18/17 14:00 89 03/18/17 13:00 86 03/18/17 12:00 84 03/18/17 11:15 18 03/18/17 11:00 98.6 90 18 109/75 (86) 95 03/18/17 11:00 90 03/18/17 10:00 126 I/O 03/18/17 03/18/17 03/18/17 03/19/17 03/19/17 03/19/17 07:00 15:00 23:00 07:00 15:00 23:00 Intake Total 616 ml 1171 ml 747 ml Output Total 500 ml 1 ml Balance 116 ml 1171 ml 746 ml Intake Oral 240 ml 960 ml 480 ml IV Total 376 ml 211 ml 267 ml Output Urine Total 500 ml Stool Total 1 ml # Voids 2 2 # Bowel Movements 1 1 Physical Exam GENERAL: Male, NAD. SKIN: Warm and dry. HEAD: Normocephalic. Mild pallor EYES: No scleral icterus. No injection or drainage. NECK: No elevation of JVD CARDIOVASCULAR: Reg rate and rhythm RESPIRATORY: No accessory muscle use. CTA MUSCULOSKELETAL: LUE and LLE edema Laboratory Laboratory Tests Test 03/19/17 03:48 White Blood Count 9.9 TH/MM3 Red Blood Count 2.95 MIL/MM3 Hemoglobin 8.9 GM/DL Hematocrit 25.9 % Mean Corpuscular Volume 87.8 FL Mean Corpuscular Hemoglobin 30.2 PG Mean Corpuscular Hemoglobin Concent 34.4 % Red Cell Distribution Width 14.2 % Platelet Count 205 TH/MM3 Mean Platelet Volume 8.5 FL Blood Urea Nitrogen 26 MG/DL Creatinine 1.16 MG/DL Random Glucose 110 MG/DL Calcium Level 7.9 MG/DL Phosphorus Level 3.4 MG/DL Magnesium Level 2.3 MG/DL Sodium Level 142 MEQ/L Potassium Level 3.7 MEQ/L Chloride Level 111 MEQ/L Carbon Dioxide Level 21.5 MEQ/L Anion Gap 10 MEQ/L Estimat Glomerular Filtration Rate 61 ML/MIN (Edilia Taylor) Assessment and Plan Problem List: (1) Coronary artery disease ICD Codes: I25.10 - Atherosclerotic heart disease of [place] coronary artery without angina pectoris (2) Hyperlipemia ICD Codes: E78.5 - Hyperlipidemia, unspecified (3) Hypertension ICD Codes: I10 - Essential (primary) hypertension (4) Hx of thymectomy ICD Codes: Z98.890 - Other specified postprocedural states; Z90.89 - Acquired absence of other organs (5) Afib ICD Codes: I48.91 - Unspecified atrial fibrillation Assessment and Plan 03/13/2017 Urgent Off-pump Coronary Artery Bypass Grafting x 2 with Left Internal Mammary Artery (BERUMEN) to the Left Anterior Descending (LAD), reverse saphenous vein graft to the Posterior Descending Artery (RPDA) of the Right Coronary Artery Post operative atrial fibrillation on Eliquis 5 mg BID, now NSR HTN HLD LUE and LLE edema PLAN: Continue Amio gtt today Transition to Cardizem 60 mg QID today, stop cardizem gtt Continue Eliquis Will tentatively keep on the schedule for 1400 CV tomorrow if he converts back to afib. Ok to have liquid breakfast before 0600. Hold NPO after 0600. The patient was seen and evaluated by Dr Stewart who completed face to face encounter and physical exam and participated in evaluation and management. (Edilia Taylor) Assessment and Plan The exam, history, and the medical decision-making described in the above note were completed with the assistance of the mid-level provider. I reviewed and agree with the findings presented. I attest that I had a [id number] encounter with the patient on the same day, and personally performed and documented my assessment and findings in the medical record. Now in sr getting better (Wilber Stewart MD) Edilia Taylor Mar 19, 2017 09:15 Wilber Stewart MD Mar 20, 2017 14:11
[2017-03-19] MEDS: DILTIAZEM HCL 60 MG TAB PO SCH ×4 (09:30→23:44)
--- NOTE | 2017-03-19 11:38 | RADRPT ---
EXAM DATE/TIME: 03/19/2017 10:12 [facility] COMPARISON: No previous studies available for comparison. INDICATIONS : Left calf pain. MEDICAL HISTORY : Myocardial infarction. Hypercholesterolemia. Carcinoma, prostate. Chest pain. Irregular heartbeat. HTN. Arthritis. SURGICAL HISTORY : Prostatectomy. Hemorrhoidectomy. Cardiac cath. TURP. Radiation therapy. ENCOUNTER: Initial ACUITY: 1 day PAIN SCORE: 3/10 LOCATION: Left leg. TECHNIQUE: Venous ultrasound of the leg was performed from the inguinal ligament to the proximal calf. Real-stevo e, color Doppler and spectral tracing, compression and augmentation techniques were used. FINDINGS: There is normal compressibility of the deep venous system from the inguinal region to the proximal ca lf. No echogenic clot is seen in the lumen of the common femoral, femoral, popliteal, and posterior tibial veins. There is a normal response of the venous system to proximal and distal augmentation an d respiration. There postoperative changes in complex fluid collection adjacent to the incision site of removal of t he greater saphenous vein. This measures up to 5.6 x 2 x 3.7 cm in diameter and demonstrates no color flow. The proximal or saphenous vein has thrombus and is noncompressible with no venous waveform. CONCLUSION: 1. No evidence of deep venous thrombosis. 2. Postoperative changes in the calf with complex fluid collection most characteristic of a hematoma and/or seroma. 3. Thrombus in the proximal residual greater saphenous vein. Jason Gonzalez MD on March 19, 2017 at 11:33 Board Certified Radiologist. This report was verified electronically.
--- NOTE | 2017-03-19 12:20 | RADRPT ---
EXAM DATE/TIME: 03/19/2017 10:39 [facility] COMPARISON: No previous studies available for comparison. INDICATIONS : Left arm edema. MEDICAL HISTORY : Myocardial infarction. Hypercholesterolemia. Carcinoma, prostate. Chest pain. Irregular heartbeat. HT N. Arhtritis. SURGICAL HISTORY : Prostatectomy. Hemorrhoidectomy. Cardiac cath. TURP. Radition therapy. ENCOUNTER: Initial ACUITY: 2 day PAIN SCORE: 0/10 LOCATION: Left arm. FINDINGS: There is occlusive thrombus seen throughout the left subclavian, axillary, brachial, and basilic vein s. Vessels are not compressible. Doppler flow is not seen in these regions. CONCLUSION: Thrombus seen in the left subclavian, axillary, brachial, and basilic veins. Carlos Reveles MD on March 19, 2017 at 12:15 Board Certified Radiologist. This report was verified electronically.
[2017-03-19] MEDS: AMIODARONE INJ 450 MG in SODIUM CHLOR 0.9% (EXCEL) INJ 250 ML IV PRN (12:47)
--- NOTE | 2017-03-19 15:26 | PD.CAR.PN ---
CVT Progress Note Subjective/Hospital Course: 76-year-old male. Patient of Dr. Faraz Del Real, Dr. Stewart who recently had a stress test back in October of 2015 for left-sided chest discomfort, essentially negative. But over the past couple of days he started having a different kind of pain. This was a burning type pain that went down his arm. [place] It happened a few times over the last few weeks and yesterday was severe enough to come into the emergency department. Troponins were negative, however, due to his history or risk factors he underwent cardiac catheterization by Dr. Stewart today which showed an ejection fraction of 60%, proximal LAD 80%, mid distal LAD had two areas of 80% stenosis. The circ had 50% . Right coronary artery had 95% stenosis. We were consulted to evaluate for coronary artery bypass grafting. PAST MEDICAL HISTORY: Hyperlipidemia, Hypertension, Malignant thymoma. PAST SURGICAL HISTORY: Thymectomy with a left thoracotomy approach three years ago at [facility] where he had also radiation for six weeks post, Prostatectomy. 03/12 pt had mild chest pain this am 02/25, Nitro gtt started by cardiology pt now pain free for surgery in am 03/14/17 Doing well s/p CABG No complaints this AM 03/15/17 AFIB yesterday, converted with amiodarone 03/16 back in afib / rate 130 add IV amiodarone bolus and gtt start eliquis / dc plavix increase BB as tolerated pt and interested in SNF 03/17 remains in afib , intermittent RVR, changed to cardizem then back to amiodarone possible cardioversion on thursday if pt does not convert 03/18 remains in Afib, rate improved on cardizem and amiodarone recheck labs in am possible cardioversion on sunday 03/19 converted to NSR on po cardizem and IV amiodarone / cardiology following still has swelling left arm ; US Thrombus seen in the left subclavian, axillary , brachial, and basilic veins. left has some swelling, EVH site : US done no DVT, some changes 2/2 to surgery pt already on eliquis Objective: GENERAL: A&O x 3 SKIN: Warm and dry. prevena dressing to chest , incision intact left leg EVH site , HEAD: Normocephalic. EYES: No scleral icterus. No injection or drainage. NECK: Supple, trachea midline. No JVD or lymphadenopathy. CARDIOVASCULAR: Regular rate and rhythm without murmurs, gallops, or rubs. left arm + swelling and edema / tender, good distal pulse RESPIRATORY: Breath sounds equal bilaterally. No accessory muscle use. GASTROINTESTINAL: Abdomen soft, non-tender, nondistended. MUSCULOSKELETAL: No cyanosis, or edema. BACK: Nontender without obvious deformity. No CVA tenderness. Vital Signs Date Time Temp Pulse Resp B/P (MAP) Pulse Ox O2 Delivery O2 Flow Rate FiO2 03/19/17 15:00 98.7 72 20 100/61 (74) 95 03/19/17 15:00 75 03/19/17 14:00 74 03/19/17 13:00 73 03/19/17 12:47 77 03/19/17 12:00 74 03/19/17 11:00 69 03/19/17 11:00 98.9 76 20 100/68 (79) 94 03/19/17 10:00 69 03/19/17 09:00 78 03/19/17 08:06 93 Nasal Cannula 4.00 03/19/17 08:00 88 03/19/17 07:15 93 Nasal Cannula 4.00 03/19/17 07:15 98.9 84 20 124/68 (86) 92 03/19/17 07:15 78 03/19/17 06:00 84 03/19/17 05:35 12 03/19/17 05:00 82 03/19/17 04:00 84 03/19/17 03:46 84 118/67 03/19/17 03:00 79 03/19/17 03:00 98.2 79 12 118/67 (84) 93 03/19/17 02:00 76 03/19/17 01:00 74 03/19/17 00:00 72 03/18/17 23:10 86 108/62 03/18/17 23:00 80 03/18/17 23:00 98.2 80 12 108/62 (77) 93 03/18/17 22:00 106 03/18/17 21:48 95 Nasal Cannula 3.00 03/18/17 21:00 96 03/18/17 20:00 104 03/18/17 19:00 93 Nasal Cannula 3.00 03/18/17 19:00 114 03/18/17 19:00 99.5 114 12 128/81 (97) 93 03/18/17 18:00 100 03/18/17 17:00 88 03/18/17 16:00 93 Labs: Laboratory Tests Test 03/19/17 03:48 White Blood Count 9.9 TH/MM3 (4.0-11.0) Red Blood Count 2.95 MIL/MM3 (4.50-5.90) Hemoglobin 8.9 GM/DL (13.0-17.0) Hematocrit 25.9 % (39.0-51.0) Mean Corpuscular Volume 87.8 FL (80.0-100.0) Mean Corpuscular Hemoglobin 30.2 PG (27.0-34.0) Mean Corpuscular Hemoglobin Concent 34.4 % (32.0-36.0) Red Cell Distribution Width 14.2 % (11.6-17.2) Platelet Count 205 TH/MM3 (150-450) Mean Platelet Volume 8.5 FL (7.0-11.0) Blood Urea Nitrogen 26 MG/DL (7-18) Creatinine 1.16 MG/DL (0.60-1.30) Random Glucose 110 MG/DL (74-106) Calcium Level 7.9 MG/DL (8.5-10.1) Phosphorus Level 3.4 MG/DL (2.5-4.9) Magnesium Level 2.3 MG/DL (1.5-2.5) Sodium Level 142 MEQ/L (136-145) Potassium Level 3.7 MEQ/L (3.5-5.1) Chloride Level 111 MEQ/L (98-107) Carbon Dioxide Level 21.5 MEQ/L (21.0-32.0) Anion Gap 10 MEQ/L (5-15) Estimat Glomerular Filtration Rate 61 ML/MIN (>89) Result Diagram: 03/19/1734703/19/17347 (1) Coronary artery disease Plan: ASA, statin , BB OOB ambulate CM to eval for rehab (2) Hyperlipemia Plan: on statin (3) Hypertension Plan: controlled (4) Hx of thymectomy (5) Afib Plan: converted to NSR on amiodarone , BB, cardiyaronm jose Riley v score 4 Dr Stewart following possible cardioversion on thursday (6) Left axillary artery thrombus Plan: on eliquis, no IV Shayla Thomas Mar 19, 2017 15:26
[2017-03-19] MEDS: SENNOSIDES 8.6 MG TAB PO SCH (21:00)
[2017-03-20] VITALS (27 sets, daily range): BP systolic 112–126; BP diastolic 67–83; PULSE 62–85; RESP 6–20; TEMP 97.9–98.9; O2SAT 92–97
[2017-03-20] MEDS: AMIODARONE INJ 450 MG in SODIUM CHLOR 0.9% (EXCEL) INJ 250 ML IV PRN (04:35)
[2017-03-20 04:54] LABS: HEMATOCRIT 25.6 % (39.0-51.0); HEMOGLOBIN 8.6 GM/DL (13.0-17.0); MEAN CELL VOLUME 87.7 FL (80.0-100.0); MEAN CORPUSCULAR HEMOGLOBIN 29.5 PG (27.0-34.0); MEAN CORPUSCULAR HGB CONC 33.6 % (32.0-36.0); MEAN PLATELET VOLUME 9.2 FL (7.0-11.0); PLATELET COUNT 199 TH/MM3 (150-450); RED BLOOD COUNT 2.92 MIL/MM3 (4.50-5.90); RED CELL DISTRIBUTION WIDTH 14.5 % (11.6-17.2); WHITE BLOOD COUNT 9.7 TH/MM3 (4.0-11.0)
[2017-03-20] MEDS: PANTOPRAZOLE SOD 40 MG DELAYED RELEASE TAB PO SCH (05:48)
[2017-03-20] MEDS: DILTIAZEM HCL 60 MG TAB PO SCH ×4 (05:48→23:34)
[2017-03-20] MEDS: INSULIN ASPART SUPPLEMENTAL SCALE SQ SCH ×4 (07:54→21:00)
[2017-03-20] MEDS: ASPIRIN 81 MG CHEW TAB PO SCH (08:01)
[2017-03-20] MEDS: METOPROLOL TARTRATE 50 MG TAB PO SCH ×2 (08:01→20:57)
[2017-03-20] MEDS: ATORVASTATIN 20 MG TAB PO SCH (08:01)
[2017-03-20] MEDS: APIXABAN 5 MG TABLET PO SCH ×2 (08:02→20:57)
[2017-03-20] MEDS: MAGNESIUM HYDROXIDE SUSP 30 ML CUP PO SCH (08:02)
[2017-03-20] MEDS: SODIUM CHLORIDE 0.9% FLUSH 10 ML FLUSH IV FLUSH SCH ×2 (08:02→20:58)
[2017-03-20] MEDS: MULTIVITAMINS/MINERALS THERAPEUTIC TAB PO SCH (08:02)
[2017-03-20] MEDS: DOCUSATE SODIUM 100 MG CAP PO SCH ×2 (08:02→20:57)
[2017-03-20] MEDS: POLYETHYLENE GLYCOL 17 GM PKG PO SCH (08:03)
[2017-03-20] MEDS ORDERED: AMIODARONE 200 MG TAB PO SCH (09:00)
--- NOTE | 2017-03-20 12:56 | PD.CAR.PN ---
CVT Progress Note Subjective/Hospital Course: 76-year-old male. Patient of Dr. Faraz Del Real, Dr. Stewart who recently had a stress test back in October of 2015 for left-sided chest discomfort, essentially negative. But over the past couple of days he started having a different kind of pain. This was a burning type pain that went down his arm. [place] the [place]. It happened a few times over the last few weeks and yesterday was severe enough to come into the emergency department. Troponins were negative, however, due to his history or risk factors he underwent cardiac catheterization by Dr. Stewart today which showed an ejection fraction of 60%, proximal LAD 80%, mid distal LAD had two areas of 80% stenosis. The circ had 50% . Right coronary artery had 95% stenosis. We were consulted to evaluate for coronary artery bypass grafting. PAST MEDICAL HISTORY: Hyperlipidemia, Hypertension, Malignant thymoma. PAST SURGICAL HISTORY: Thymectomy with a left thoracotomy approach three years ago at [facility] where he had also radiation for six weeks post, Prostatectomy. 03/12 pt had mild chest pain this am 02/25, Nitro gtt started by cardiology pt now pain free for surgery in am 03/14/17 Doing well s/p CABG No complaints this AM 03/15/17 AFIB yesterday, converted with amiodarone 03/16 back in afib / rate 130 add IV amiodarone bolus and gtt start eliquis / dc plavix increase BB as tolerated pt and interested in SNF 03/17 remains in afib , intermittent RVR, changed to cardizem then back to amiodarone possible cardioversion on thursday if pt does not convert 03/18 remains in Afib, rate improved on cardizem and amiodarone recheck labs in am possible cardioversion on sunday 03/19 converted to NSR on po cardizem and IV amiodarone / cardiology following still has swelling left arm ; US Thrombus seen in the left subclavian, axillary , brachial, and basilic veins. left has some swelling, EVH site : US done no DVT, some changes 2/2 to surgery pt already on eliquis 2/2 DVT left arm , still with swelling discussed with cardiology will need to increase eliquis to 10mg bid x 7 days, then 5mg bid amiodarone 200mg bid x 4 days then 200mg daily / remains in NSR Objective: GENERAL: A&O x 3 SKIN: Warm and dry.incision intact and well approximated to chest, left leg incision intact, swelling improved left arm with swelling and tenderness HEAD: Normocephalic. EYES: No scleral icterus. No injection or drainage. NECK: Supple, trachea midline. No JVD or lymphadenopathy. CARDIOVASCULAR: Regular rate and rhythm without murmurs, gallops, or rubs. RESPIRATORY: Breath sounds equal bilaterally. No accessory muscle use. GASTROINTESTINAL: Abdomen soft, non-tender, nondistended. MUSCULOSKELETAL: No cyanosis, or edema. BACK: Nontender without obvious deformity. No CVA tenderness. Vital Signs Date Time Temp Pulse Resp B/P (MAP) Pulse Ox O2 Delivery O2 Flow Rate FiO2 03/20/17 12:00 73 03/20/17 11:00 94 Nasal Cannula 3.00 03/20/17 11:00 68 03/20/17 11:00 98.1 71 20 120/70 (87) 94 03/20/17 10:00 68 03/20/17 09:00 62 03/20/17 08:00 Nasal Cannula 3.00 03/20/17 08:00 77 03/20/17 07:00 95 Nasal Cannula 3.00 03/20/17 07:00 98.9 77 20 126/83 (97) 95 03/20/17 07:00 76 03/20/17 06:18 96 Nasal Cannula 4.00 03/20/17 06:18 Nasal Cannula 3.00 03/20/17 06:00 81 03/20/17 05:00 74 03/20/17 04:35 78 115/70 03/20/17 04:00 73 03/20/17 03:30 98.6 79 16 115/70 (85) 93 03/20/17 03:30 93 Nasal Cannula 5.00 03/20/17 03:00 72 03/20/17 02:00 66 03/20/17 01:00 69 03/20/17 00:00 68 03/19/17 23:30 99.7 91 16 108/67 (81) 92 03/19/17 23:30 92 Nasal Cannula 5.00 03/19/17 23:00 81 03/19/17 22:00 84 03/19/17 21:00 91 Nasal Cannula 4.00 03/19/17 21:00 99.5 85 18 135/68 (90) 91 03/19/17 21:00 86 03/19/17 20:00 76 03/19/17 19:00 78 03/19/17 18:00 82 03/19/17 17:00 70 03/19/17 16:00 70 03/19/17 15:00 98.7 72 20 100/61 (74) 95 03/19/17 15:00 75 03/19/17 14:00 74 03/19/17 13:00 73 Labs: Laboratory Tests Test 03/20/17 04:20 White Blood Count 9.7 TH/MM3 (4.0-11.0) Red Blood Count 2.92 MIL/MM3 (4.50-5.90) Hemoglobin 8.6 GM/DL (13.0-17.0) Hematocrit 25.6 % (39.0-51.0) Mean Corpuscular Volume 87.7 FL (80.0-100.0) Mean Corpuscular Hemoglobin 29.5 PG (27.0-34.0) Mean Corpuscular Hemoglobin Concent 33.6 % (32.0-36.0) Red Cell Distribution Width 14.5 % (11.6-17.2) Platelet Count 199 TH/MM3 (150-450) Mean Platelet Volume 9.2 FL (7.0-11.0) Result Diagram: 03/20/17 0420 03/19/17 0348 Telemetry: NSR (1) Coronary artery disease Plan: ASA, statin , BB OOB ambulate CM to eval for rehab (2) Hyperlipemia Plan: on statin (3) Hypertension Plan: controlled (4) Hx of thymectomy (5) Afib Plan: converted to NSR on amiodarone , BB, cardizem eliquis Riley v score 4 Dr Stewart following (6) Left axillary artery thrombus Plan: on eliquis ( increase to 10mg bid x 7 days, then 5mg bid ) , Shayla Thomas Mar 20, 2017 12:56
[2017-03-20] MEDS ORDERED: POTASSIUM CHLORIDE 20 MEQ CONTROLLED RELEASE TAB PO ONE ×2 (13:45→15:00)
[2017-03-20] MEDS ORDERED: FUROSEMIDE 20 MG/2 ML VIAL IV PUSH ONE (14:00)
[2017-03-20] MEDS: ACETAMINOPHEN 325 MG TAB PO PRN ×2 (15:08→20:58)
--- NOTE | 2017-03-20 15:29 | PD.CARD.PN ---
Subjective Subjective Remarks The patient remained in NSR, CV canceled this morning. The patient's primary complaints of left arm swelling and discomfort and generalized weakness (Edilia Taylor) Objective Medications Current Medications Medications (Trade) Dose Ordered Sig/Antonia Route Start Time Stop Time Status Last Admin (Lipitor) 20 mg DAILY PO 03/11/17 11:00 03/20/17 08:01 (NS Flush) 2 ml BID IV FLUSH 03/13/17 21:00 03/20/17 08:02 (NS Flush) 2 ml UNSCH PRN IV FLUSH 03/13/17 12:00 (Aspirin Chew) 81 mg DAILY PO 03/14/17 09:00 03/20/17 08:01 (Protonix) 40 mg DAILY@06 PO 03/14/17 06:00 03/20/17 05:48 (Tylenol) 650 mg Q4H PRN PO 03/13/17 12:15 03/20/17 15:08 ([place] 5-325 Mg) 1 tab Q3H PRN PO 03/13/17 12:30 03/18/17 10:10 (Zofran Inj) 4 mg Q6H PRN IV PUSH 03/13/17 12:00 (Lopressor Inj) 2.5 mg Q1H PRN IV PUSH 03/13/17 12:30 03/16/17 06:16 (Duoneb Neb) 1 ampule Q2HR NEB PRN NEB 03/13/17 12:15 (Colace) 100 mg BID PO 03/14/17 21:00 03/20/17 08:02 (Theragran M Tab) 1 tab DAILY PO 03/15/17 09:00 03/20/17 08:02 (Milk Of Magnesia Liq) 30 ml DAILY PO 03/15/17 09:00 03/16/17 08:30 (Dulcolax Supp) 10 mg UNSCH PRN RECTAL 03/14/17 09:45 (Miralax) 17 gm DAILY PO 03/15/17 09:00 03/16/17 08:30 (Senokot) 8.6 mg HS PO 03/14/17 21:00 03/18/17 21:23 (D50w (Vial) Inj) 50 ml UNSCH PRN IV PUSH 03/14/17 09:45 (Glucagon Inj) 1 mg UNSCH PRN OTHER 03/14/17 09:45 (NovoLOG SUPPLEMENTAL SCALE) 1 ACHS SQ 03/16/17 12:00 03/20/17 11:51 (Lopressor) 50 mg Q12HR PO 03/16/17 21:00 03/20/17 08:01 (Cardizem) 60 mg Q6HR PO 03/19/17 09:30 03/20/17 11:50 (Cordarone) 200 mg BID PO 03/20/17 21:00 (Eliquis) 10 mg BID PO 03/20/17 21:00 03/27/17 20:59 (Eliquis) 5 mg BID PO 03/27/17 21:00 Vital Signs / I&O Vital Signs Date Time Temp Pulse Resp B/P (MAP) Pulse Ox O2 Delivery O2 Flow Rate FiO2 03/20/17 15:00 75 03/20/17 15:00 95 Nasal Cannula 3.00 03/20/17 15:00 97.9 85 20 112/67 (82) 95 03/20/17 14:00 76 03/20/17 13:00 79 03/20/17 12:00 73 03/20/17 11:00 94 Nasal Cannula 3.00 03/20/17 11:00 68 03/20/17 11:00 98.1 71 20 120/70 (87) 94 03/20/17 10:00 68 03/20/17 09:00 62 03/20/17 08:00 Nasal Cannula 3.00 03/20/17 08:00 77 03/20/17 07:00 95 Nasal Cannula 3.00 03/20/17 07:00 98.9 77 20 126/83 (97) 95 03/20/17 07:00 76 03/20/17 06:18 96 Nasal Cannula 4.00 03/20/17 06:18 Nasal Cannula 3.00 03/20/17 06:00 81 03/20/17 05:00 74 03/20/17 04:35 78 115/70 03/20/17 04:00 73 03/20/17 03:30 98.6 79 16 115/70 (85) 93 03/20/17 03:30 93 Nasal Cannula 5.00 03/20/17 03:00 72 03/20/17 02:00 66 03/20/17 01:00 69 03/20/17 00:00 68 03/19/17 23:30 99.7 91 16 108/67 (81) 92 03/19/17 23:30 92 Nasal Cannula 5.00 03/19/17 23:00 81 03/19/17 22:00 84 03/19/17 21:00 91 Nasal Cannula 4.00 03/19/17 21:00 99.5 85 18 135/68 (90) 91 03/19/17 21:00 86 03/19/17 20:00 76 03/19/17 19:00 78 03/19/17 18:00 82 03/19/17 17:00 70 03/19/17 16:00 70 I/O 03/19/17 03/19/17 03/19/17 03/20/17 03/20/17 03/20/17 07:00 15:00 23:00 07:00 15:00 23:00 Intake Total 747 ml 760 ml 684 ml Output Total 1 ml 760 ml 250 ml Balance 746 ml 0 ml 434 ml Intake Oral 480 ml 760 ml 480 ml IV Total 267 ml 204 ml Output Urine Total 760 ml 250 ml Stool Total 1 ml # Voids 2 2 # Bowel Movements 0 0 Physical Exam GENERAL: Male, NAD. SKIN: Warm and dry. HEAD: Normocephalic. Mild pallor EYES: No scleral icterus. No injection or drainage. NECK: No elevation of JVD CARDIOVASCULAR: Reg rate and rhythm RESPIRATORY: No accessory muscle use. CTA MUSCULOSKELETAL: LUE and LLE edema Laboratory Laboratory Tests Test 03/20/17 04:20 White Blood Count 9.7 TH/MM3 Red Blood Count 2.92 MIL/MM3 Hemoglobin 8.6 GM/DL Hematocrit 25.6 % Mean Corpuscular Volume 87.7 FL Mean Corpuscular Hemoglobin 29.5 PG Mean Corpuscular Hemoglobin Concent 33.6 % Red Cell Distribution Width 14.5 % Platelet Count 199 TH/MM3 Mean Platelet Volume 9.2 FL Imaging Last 72 hours Impressions Upper Extremity Ultrasound 03/19/17 0000 Signed Impressions: Service Date/Time: March 10:39 - CONCLUSION: Thrombus seen in the left subclavian, axillary, brachial, and basilic veins. Carlos Reveles MD Lower Extremity Ultrasound 03/19/17 0000 Signed Impressions: Service Date/Time: March 10:12 - CONCLUSION: 1. No evidence of deep venous thrombosis. 2. Postoperative changes in the calf with complex fluid collection most characteristic of a hematoma and/or seroma. 3. Thrombus in the proximal residual greater saphenous vein. Jason Gonzalez MD (Edilia Taylor) Assessment and Plan Problem List: (1) Coronary artery disease ICD Codes: I25.10 - Atherosclerotic heart disease of nondalton coronary artery without angina pectoris (2) Hyperlipemia ICD Codes: E78.5 - Hyperlipidemia, unspecified (3) Hypertension ICD Codes: I10 - Essential (primary) hypertension (4) Hx of thymectomy ICD Codes: Z98.890 - Other specified postprocedural states; Z90.89 - Acquired absence of other organs (5) Afib ICD Codes: I48.91 - Unspecified atrial fibrillation (6) Left axillary artery thrombus ICD Codes: I74.2 - Embolism and thrombosis of arteries of the upper extremities Assessment and Plan 03/13/2017 Urgent Off-pump Coronary Artery Bypass Grafting x 2 with Left Internal Mammary Artery (BERUMEN) to the Left Anterior Descending (LAD), reverse saphenous vein graft to the Posterior Descending Artery (RPDA) of the Right Coronary Artery Post operative atrial fibrillation LUE superficial and deep vein thrombus HTN HLD PLAN: Increase Eliquis 10 BID for 7 days, then decrease back to Eliquis 5 mg BID Continue BB, amio and cardizem, statin Ok for dc from cardiac standpoint in the AM. Elevate left arm The patient was seen and evaluated by Dr Stewart who completed face to face encounter and physical exam and participated in evaluation and management. (Edilia Taylor) Assessment and Plan The exam, history, and the medical decision-making described in the above note were completed with the assistance of the mid-level provider. I reviewed and agree with the findings presented. I attest that I had a [id number] encounter with the patient on the same day, and personally performed and documented my assessment and findings in the medical record. Arm swollen , will keep elevated in rehab , otherwise doing well. (Wilber Stewart MD) Edilia Taylor Mar 20, 2017 15:29 Wilber Stewart MD Mar 23, 2017 14:34
--- NOTE | 2017-03-20 19:06 | EKG ---
Date Performed: 03/19/2017 Time Performed: 09:15:02 PTAGE: 76 years EKG: Sinus rhythm Inferior infarct - age undetermined Lateral T wave changes may be due to myocardial ischemia Compare d to previous tracing, patient is no longer in atrial fibrillation Abnormal ECG PREVIOUS TRACING : 03/14/17 @ 1350 DOCTOR: Chad Funk Interpretating Date/Time 03/20/2017 19:04:10
--- NOTE | 2017-03-20 19:54 | EKG ---
Date Performed: 03/19/2017 Time Performed: 14:35:20 PTAGE: 76 years EKG: Sinus rhythm Inferior infarct - age undetermined Anterolateral T wave changes are nonspecific Abnormal ECG Since the prior tracing, there has been no significant change NO PREVIOUS TRACING DOCTOR: Chad Funk Interpretating Date/Time 03/20/2017 19:52:50
[2017-03-20] MEDS: SENNOSIDES 8.6 MG TAB PO SCH (20:57)
[2017-03-20] MEDS: AMIODARONE 200 MG TAB PO SCH (20:58)
[2017-03-21] VITALS (17 sets, daily range): BP systolic 110–131; BP diastolic 61–78; PULSE 66–81; RESP 18–19; TEMP 97.4–98.4; O2SAT 92–96
[2017-03-21] MEDS: ACETAMINOPHEN 325 MG TAB PO PRN (04:36)
[2017-03-21] MEDS: DILTIAZEM HCL 60 MG TAB PO SCH ×2 (06:22→12:03)
[2017-03-21] MEDS: PANTOPRAZOLE SOD 40 MG DELAYED RELEASE TAB PO SCH (06:22)
[2017-03-21 07:51] LABS: BICARBONATE 20.4 MEQ/L (21.0-32.0); CALCIUM 7.8 MG/DL (8.5-10.1); CREATININE 1.18 MG/DL (0.60-1.30); MAGNESIUM 2.3 MG/DL (1.5-2.5)
[2017-03-21] MEDS: INSULIN ASPART SUPPLEMENTAL SCALE SQ SCH ×2 (08:00→12:03)
[2017-03-21] MEDS: SODIUM CHLORIDE 0.9% FLUSH 10 ML FLUSH IV FLUSH SCH (09:00)
[2017-03-21] MEDS: POLYETHYLENE GLYCOL 17 GM PKG PO SCH (09:10)
[2017-03-21] MEDS: MAGNESIUM HYDROXIDE SUSP 30 ML CUP PO SCH (09:10)
[2017-03-21] MEDS: DOCUSATE SODIUM 100 MG CAP PO SCH (09:10)
[2017-03-21] MEDS: APIXABAN 5 MG TABLET PO SCH (09:10)
[2017-03-21] MEDS: AMIODARONE 200 MG TAB PO SCH (09:10)
[2017-03-21] MEDS: ASPIRIN 81 MG CHEW TAB PO SCH (09:11)
[2017-03-21] MEDS: ATORVASTATIN 20 MG TAB PO SCH (09:11)
[2017-03-21] MEDS: METOPROLOL TARTRATE 50 MG TAB PO SCH (09:11)
[2017-03-21] MEDS: MULTIVITAMINS/MINERALS THERAPEUTIC TAB PO SCH (09:11)
[2017-03-21] MEDS ORDERED: AMIO200T PO (10:00)
[2017-03-21] MEDS ORDERED: METO-309 PO (10:00)
[2017-03-21] MEDS ORDERED: DILT60TA33 PO (10:00)
[2017-03-21] MEDS ORDERED: DOCU1CAP39 PO (10:00)
[2017-03-21] MEDS ORDERED: APIX5TAB PO (10:00)
[2017-03-21] MEDS ORDERED: HYDR-3516 PO (10:00)
--- NOTE | 2017-03-21 10:01 | HHI.DS ---
Discharge Summary Admission Date Mar 10, 2017 at 18:49 Discharge Date: Mar 21, 2017 Admitting Diagnosis Chest Pain Procedures Cardiac Cath found two to three vessel disease. CBC/BMP: 03/20/17 0420 03/21/17 0630 Significant Findings Laboratory Tests Test 03/19/17 03:48 03/20/17 04:20 03/21/17 06:30 Red Blood Count 2.95 MIL/MM3 (4.50-5.90) 2.92 MIL/MM3 (4.50-5.90) Hemoglobin 8.9 GM/DL (13.0-17.0) 8.6 GM/DL (13.0-17.0) Hematocrit 25.9 % (39.0-51.0) 25.6 % (39.0-51.0) Blood Urea Nitrogen 26 MG/DL (7-18) 23 MG/DL (7-18) Random Glucose 110 MG/DL (74-106) Calcium Level 7.9 MG/DL (8.5-10.1) 7.8 MG/DL (8.5-10.1) Chloride Level 111 MEQ/L (98-107) 113 MEQ/L (98-107) Estimat Glomerular Filtration Rate 61 ML/MIN (>89) 60 ML/MIN (>89) Carbon Dioxide Level 20.4 MEQ/L (21.0-32.0) Hospital Course 6-year-old male. Patient of Dr. Faraz Del Real, Dr. Stewart who recently had a stress test back in October of 2015 for left-sided chest discomfort, essentially negative. But over the past couple of days he started having a different kind of pain. This was a burning type pain that went down his arm. [place] It happened a few times over the last few weeks and yesterday was severe enough to come into the emergency department. Troponins were negative, however, due to his history or risk factors he underwent cardiac catheterization by Dr. Stewart today which showed an ejection fraction of 60%, proximal LAD 80%, mid distal LAD had two areas of 80% stenosis. The circ had 50% . Right coronary artery had 95% stenosis. We were consulted to evaluate for coronary artery bypass grafting. PAST MEDICAL HISTORY: Hyperlipidemia, Hypertension, Malignant thymoma. PAST SURGICAL HISTORY: Thymectomy with a left thoracotomy approach three years ago at [facility] where he had also radiation for six weeks post, Prostatectomy. 03/12 pt had mild chest pain this am 02/25, Nitro gtt started by cardiology pt now pain free for surgery in am 03/14/17 Doing well s/p CABG No complaints this AM 03/15/17 AFIB yesterday, converted with amiodarone 03/16 back in afib / rate 130 add IV amiodarone bolus and gtt start eliquis / dc plavix increase BB as tolerated pt and interested in SNF 03/17 remains in afib , intermittent RVR, changed to cardizem then back to amiodarone possible cardioversion on thursday if pt does not convert 03/18 remains in Afib, rate improved on cardizem and amiodarone recheck labs in am possible cardioversion on sunday 03/19 converted to NSR on po cardizem and IV amiodarone / cardiology following still has swelling left arm ; US Thrombus seen in the left subclavian, axillary , brachial, and basilic veins. left has some swelling, EVH site : US done no DVT, some changes 2/2 to surgery pt already on eliquis 2/2 DVT left arm , still with swelling discussed with cardiology will need to increase eliquis to 10mg bid x 7 days, then 5mg bid amiodarone 200mg bid x 4 days then 200mg daily / remains in NSR 2/ Discharge to SNF Pt Condition on Discharge: Good Discharge Disposition: Discharge to SNF Discharge Instructions DIET: Follow Instructions for: Heart Healthy Diet Activities you can perform: Full Weight Bearing, Shower Only-No Bath Activities to avoid: Lifting/Bending, Driving Follow up Referrals: Cardiology - 4 Weeks with Wilber Stewart MD PCP Follow-up - 2 Weeks with Faraz Del Real DO Surgical - 2 Weeks with Aquiles Gonzalez MD New Medications: Amiodarone (Amiodarone) 200 Mg Tab 200 MG PO BID for z for 28 Days, #56 TAB Apixaban (Eliquis) 5 Mg Tab 5 MG PO BID for z for 14 Days, #28 TAB After 7 days of 7.5mg change to 5mg for 14 days Apixaban (Eliquis) 5 Mg Tab 7.5 MG PO BID for z for 7 Days, #21 TAB 7.5mg for 7 days then change to 5mg for 14 days Diltiazem (Cardizem) 60 Mg Tab 60 MG PO Q6HR for z for 28 Days, TAB Docusate Sodium (Dok) 100 Mg Cap 100 MG PO BID for Constipation for 28 Days, #56 CAP Hydrocodone/Acetaminophen (Hydrocodone-Acetamin 5-325 mg) 5 Mg-325 Mg Tablet 1 TAB PO Q3H PRN for PAIN SCALE 1 TO 5, #60 TAB Metoprolol Tartrate (Lopressor) 50 Mg Tab 50 MG PO Q12HR for z for 90 Days, TAB 10 Refills Continued Medications: Aspirin (Aspirin Low Dose) 81 Mg Chew 81 MG CHEW DAILY, TAB 0 Refills Atorvastatin (Lipitor) 40 Mg Tab 40 MG PO HS for Cholesterol Management, #30 TAB 0 Refills Discontinued Medications: Amlodipine (Amlodipine) 5 Mg Tab 7.5 MG PO DAILY for Blood Pressure Management, #30 TAB 0 Refills Metoprolol Tartrate (Metoprolol Tartrate) 50 Mg Tab 50 MG PO DAILY, #30 TAB 0 Refills Aquiles Gonzalez MD Mar 21, 2017 10:01
--- NOTE | 2017-03-23 12:14 | RSPPFT ---
DATE OF PROCEDURE: 03/12/17 COMMENTS: Spirometry is within normal limits. The FEV1/FVC ratio is 75% of predicted. The FEF 25-75 is 77%. Flow volume loops appear unremarkable. IMPRESSION: 1. Essentially normal pulmonary function study.
[2017-03-27] MEDS ORDERED: APIXABAN 5 MG TABLET PO SCH (21:00)
== END 2017-03-21 13:25 | DRG 234 ==
LOC: NEPE 15:17 → NEDA 18:49 → NEDH 22:49 → HCIS 03-11 12:41 → HCVI 03-13 11:45 → HCPC 03-16 10:35
PROVIDERS: ADMIT Internal Medicine; ATTEND Thoracic Surgery (Cardiothoracic Vascular Surgery)
PROC: 4A023N7 Measurement of Cardiac Sampling and Pressure, Left Heart, Percutaneous Approach (ICD-10-PCS; 2017-03-11)
PROC: B2111ZZ Fluoroscopy of Multiple Coronary Arteries using Low Osmolar Contrast (ICD-10-PCS; 2017-03-11)
PROC: B2151ZZ Fluoroscopy of Left Heart using Low Osmolar Contrast (ICD-10-PCS; 2017-03-11)
PROC: 021009W Bypass Coronary Artery, One Artery from Aorta with Autologous Venous Tissue, Open Approach (ICD-10-PCS; 2017-03-13)
PROC: 06BQ4ZZ Excision of Left Saphenous Vein, Percutaneous Endoscopic Approach (ICD-10-PCS; 2017-03-13)
PROC: 02100Z9 Bypass Coronary Artery, One Artery from Left Internal Mammary, Open Approach (ICD-10-PCS; principal; 2017-03-13 07:30)
DX: I25.110 Atherosclerotic heart disease of native coronary artery with unstable angina pectoris (principal); I82.622 Acute embolism and thrombosis of deep veins of left upper extremity; I82.A12 Acute embolism and thrombosis of left axillary vein; I48.91 Unspecified atrial fibrillation; I82.B12 Acute embolism and thrombosis of left subclavian vein; I82.612 Acute embolism and thrombosis of superficial veins of left upper extremity; I10 Essential (primary) hypertension; E78.5 Hyperlipidemia, unspecified; E87.6 Hypokalemia; Z85.238 Personal history of other malignant neoplasm of thymus; Z92.3 Personal history of irradiation; Z85.46 Personal history of malignant neoplasm of prostate; Z87.891 Personal history of nicotine dependence
CPT/HCPCS: 71045; 71046; 71250; 76937; 80048; 80053; 81001; 82272; 82550; 82948; 83036; 83735; 84100; 84484; 85025; 85027; 85610; 85730; 86850; 86900; 86901; 86920; 87641; 93005; 93318; 93458; 93880; 93970; 93971; 93998; 94002; 94010; 94150; 94640; 94664; 94667; 94668; 99152; 99153; C1769; C1893; J0131; J0171; J0282; J0461; J0690; J1644; J1815; J1885; J1940; J2250; J2370; J2720; J3010; J3370; J3475; J3480; J7030; J7050; J7120; P9045; Q9967

== ENCOUNTER 2017-08-07 11:55 | Day surgery (SDC) | payer MEDICARE, OTHER ==
[~2017-08-07 11:55] MED LIST changes: +AMIO200T PO; +APIX5TAB PO; -ASPI81 PO; +ASPI81CH6 CHEW; -COZA50TA PO; +DILT60TA33 PO; +DOCU1CAP39 PO; +HYDR-3516 PO; -IBUP600T26 PO; +LIPI40TA PO; -LORTA5 PO; +LOSA100T PO; +METO-309 PO; -NORV10TA PO; -ROBA750T3 PO; -SIMV5TAB3 OR; -TOPR25TA2 PO
[2017-08-07] MEDS ORDERED: PROPOFOL 200 MG/20 ML AMP IV ONE (12:00)
[2017-08-07] MEDS ORDERED: LIDOCAINE HCL 1% PF 5 ML SYRINGE OTHER ONE (12:00)
[2017-08-07] MEDS ORDERED: METOPROLOL TARTRATE 25 MG TAB PO PRN (12:30)
[2017-08-07] MEDS ORDERED: LACTATED RINGER'S 1000 ML IV PRN (12:30)
[2017-08-07] MEDS ORDERED: CHLORHEXIDINE GLUCONATE 2 % 1 PACK (2 CLOTHS) TOPICAL PRN (12:30)
[2017-08-07] MEDS ORDERED: POVIDONE IODINE 5% (ANTISEPSIS KIT) 4 APPLICATIONS EACH NARE PRN (12:30)
[2017-08-07] MEDS ORDERED: SODIUM CHLORID 0.9% 500 ML IV PRN (12:30)
[2017-08-07] MEDS ORDERED: MULT400T PO (12:41)
[2017-08-07] MEDS ORDERED: FURO1TAB62 PO (12:45)
[2017-08-07] MEDS ORDERED: ATOR80TA45 PO (12:45)
[2017-08-07] MEDS ORDERED: LOSA50TA PO (12:45)
[2017-08-07] MEDS ORDERED: CARD240C6 PO (12:45)
[2017-08-07] MEDS ORDERED: MULTTAB67 PO (12:45)
--- NOTE | 2017-08-07 14:40 | MR ---
cc: Wilber Stewart MDFaraz DATE: 08/07/2017 PROCEDURE: Cardioversion. INDICATIONS FOR PROCEDURE: Atrial fibrillation. CONSENT: Fully informed consent was obtained prior to the procedure. The risks of , bleeding, perforation, aspiration, infection, cardiac arrest, foreseen and unforeseen complications were reviewed. The patient appeared to fully understand the risks. PROCEDURAL STATEMENT: The patient was draped and prepped in the usual manner. Anesthesia was administered by the Anesthesia Department. A full ANABELA was performed. There was no evidence of left atrial appendage thrombus; however, there was some "smoke" in the left atrium. Following a 200 joule synchronized shock, the patient converted to sinus rhythm. CONCLUSION: Successful cardioversion from atrial fibrillation to sinus rhythm. PLAN: Discharge the patient later today. Followup as an outpatient in due course. He will see Dr. Del Real in due course as well. MD JOSE RAUL Joseph/ETIENNE , 02:24 PM , 02:39 PM
--- NOTE | 2017-08-07 15:16 | CF ---
cc: Wilber Stewart MDFaraz DO DATE: 08/07/2017 INDICATIONS FOR PROCEDURE: ANABELA cardioversion. CONSENT: Fully informed consent was obtained prior to the procedure. The risks of , bleeding, myocardial infarction, perforation, aspiration, foreseen and unforeseen complications were reviewed. The patient appeared to fully understand the risks. PROCEDURAL STATEMENTS: The patient was draped and prepped in the usual manner. Anesthesia was given as per the Anesthesia Department. A full ANABELA was performed. FINDINGS: The interatrial septum was intact. There is evidence of moderate mitral regurgitation. There was heavy "smoke " noted in the left atrium. The left atrial appendage was free of thrombus. There was evidence of mild to moderate mitral regurgitation, trace tricuspid regurgitation. The aorta was visualized. There appeared to be pleural fluid present. The aorta itself; however, was intact. CONCLUSION: Left atrial appendage free of thrombus. PLAN: Plan to proceed with cardioversion. MD JOSE RAUL Joesph/ETIENNE , 02:23 PM , 03:15 PM
--- NOTE | 2017-08-08 15:26 | EKG ---
Date Performed: 08/07/2017 Time Performed: 12:23:28 PTAGE: 77 years EKG: Atrial fibrillation. Inferior infarct - age undetermined Lateral ST-T changes may be due to myocardial ischemia Abnormal ECG PREVIOUS TRACING : 03/19/2017 14.35 Since the previous tracing, no significant change noted DOCTOR: Chad Funk Interpretating Date/Time 08/08/2017 15:24:32
== END 2017-08-07 15:32 | disposition home or self-care (01) ==
LOC: HDOC 11:55 → HDIC 11:55 → HDOC 15:32
PROVIDERS: ATTEND Internal Medicine Cardiovascular Disease
DX: I48.91 Unspecified atrial fibrillation (principal); I25.10 Atherosclerotic heart disease of native coronary artery without angina pectoris; R07.9 Chest pain, unspecified; R42 Dizziness and giddiness; I47.1 Supraventricular tachycardia; I65.29 Occlusion and stenosis of unspecified carotid artery; I35.1 Nonrheumatic aortic (valve) insufficiency; I82.409 Acute embolism and thrombosis of unspecified deep veins of unspecified lower extremity; D15.0 Benign neoplasm of thymus; L03.90 Cellulitis, unspecified; C61 Malignant neoplasm of prostate; R05 Cough; Z87.891 Personal history of nicotine dependence; Z95.1 Presence of aortocoronary bypass graft
CPT/HCPCS: 92960; 93005; 93312; 93320; 93325